=== PATIENT | male | born 1955 | race Caucasian/White ===

== ENCOUNTER → 2017-09-10 14:40 | Outpatient (CLI) | payer OTHER, SELFPAY ==
[2017-09-10 15:52] LABS: Absolute Lymphocyte Count 2.38 X10^3/ul (0.83-4.51); Absolute Neutrophil Count 3.3 X10^3/uL (2.0-7.7); Basophil# 0.04 X10^3/uL; Basophil% 0.6 % (0-1); Eosinophil# 0.63 X10^3/uL; Hematocrit 46.2 % (40-54); Hemoglobin 15.6 g/dl (13.0-16.5); Lymphocyte # 2.38 X10^3/ul (4.0); Lymphocyte % 33.9 % (19-41); Mean Corp Hgb Conc 33.8 g/gl (32-36); Mean Corpuscular Hgb 30.6 pg (27.0-32.0); Mean Corpuscular Volume 90.8 fL (80-94); Monocyte# 0.64 X10^3/uL; Monocyte% 9.1 % (0-10); Neutrophil # 3.32 X10^3/uL (2.7-7.7); Neutrophil % 47.3 % (47-70); Platelet Count 323 K/mm3 (150-450); RBC Distribution Width SD 43.3 fl (35.1-43.9); Red Blood Count 5.09 M/mm3 (4.6-6.2)
[2017-09-10 15:55] LABS: POSITIVE COUNT NO; POSITIVE DIFFERENTIAL NO; POSITIVE MORPHOLOGY NO
[2017-09-10 15:57] LABS: Anion Gap 9 (5-15); BUN 14 mg/dL (7-18); BUN/Creat Ratio 14.4 RATIO (10-20); Chloride 105 mmol/L (98-107); Creatinine, Serum 0.97 mg/dL (0.70-1.30); EST Glomerular Filtration Rate 83 mL/min (>60); Est Glom Filt Rate - Afr Amer 100 mL/min (>60); Glucose 87 mg/dL (74-106); Potassium 4.3 mmol/L (3.5-5.1); Sodium Level 139 mmol/L (136-145)
== END ==
PROVIDERS: Family Provider Family Medicine; PCP Family Medicine; Visit Provider Family Medicine
DX: R55 Syncope and collapse (principal)
CPT/HCPCS: 36415; 80048; 85025

== ENCOUNTER → 2018-04-21 08:14 | Outpatient (CLI) | payer OTHER, SELFPAY ==
[2018-04-21 10:28] LABS: Absolute Lymphocyte Count 1.93 X10^3/ul (0.83-4.51); Absolute Neutrophil Count 2.1 X10^3/uL (2.0-7.7); Basophil# 0.05 X10^3/uL; Eosinophil# 0.36 X10^3/uL; Eosinophils% 7.3 % (0-5); Hematocrit 47.5 % (40-54); Hemoglobin 15.8 g/dl (13.0-16.5); Lymphocyte # 1.93 X10^3/ul (4.0); Lymphocyte % 38.9 % (19-41); Mean Corp Hgb Conc 33.3 g/gl (32-36); Mean Corpuscular Hgb 30.8 pg (27.0-32.0); Mean Corpuscular Volume 92.6 fL (80-94); Mean Platelet Vol. 9.7 fl (6.2-12.0); Monocyte# 0.52 X10^3/uL; Monocyte% 10.5 % (0-10); Neutrophil # 2.08 X10^3/uL (2.7-7.7); Neutrophil % 41.9 % (47-70); POSITIVE COUNT NO; POSITIVE DIFFERENTIAL NO; POSITIVE MORPHOLOGY NO; Platelet Count 337 K/mm3 (150-450); RBC Distribution Width CV 12.9 % (11.6-14.6); RBC Distribution Width SD 43.8 fl (35.1-43.9); Red Blood Count 5.13 M/mm3 (4.6-6.2)
[2018-04-21 11:07] LABS: Anion Gap 10 (5-15); BUN 9 mg/dL (7-18); BUN/Creat Ratio 8.4 RATIO (10-20); Calcium,Total 9.2 mg/dL (8.5-10.1); Chloride 105 mmol/L (98-107); Cholesterol 231 mg/dL (200); Creatinine, Serum 1.07 mg/dL (0.70-1.30); EST Glomerular Filtration Rate 74 mL/min (>60); Est Glom Filt Rate - Afr Amer 90 mL/min (>60); Glucose 89 mg/dL (74-106); High Density Lipoprotein 49 mg/dL; PSA,Total - Annual Screen 1.37 ng/mL (0.00-4.00); Potassium 4.5 mmol/L (3.5-5.1); Sodium Level 138 mmol/L (136-145); Triglycerides 135 mg/dL; Very Low Density Lipoprotein 27 mg/dL (5-40)
== END ==
PROVIDERS: Family Provider Family Medicine; PCP Family Medicine; Visit Provider Family Medicine
DX: E78.00 Pure hypercholesterolemia, unspecified (principal); I10 Essential (primary) hypertension; Z12.5 Encounter for screening for malignant neoplasm of prostate
CPT/HCPCS: 36415; 80048; 80061; 84153; 85025; G0103

== ENCOUNTER → 2019-03-15 08:31 | Outpatient (CLI) | payer OTHER, SELFPAY ==
[2015-08-22 14:48] VITALS: BMI 26.3
[2019-03-15 10:22] LABS: Amphetamine Urine VISTA NEGATIVE (<1000 ng/mL); Barbiturate Urine VISTA NEGATIVE (< 200 ng/mL); Benzodiazepine Urine VISTA POSITIVE (< 200 ng/mL); Cocaine Urine VISTA NEGATIVE (< 300 ng/mL); Ecstacy Urine VISTA NEGATIVE (< 500 ng/mL); Methadone Urine VISTA NEGATIVE (< 300 ng/mL); PCP Urine VISTA NEGATIVE (< 25 ng/mL); THC Urine VISTA POSITIVE (< 50 ng/mL); Vista UDS pH Range 6
[2019-03-15 10:28] LABS: Microalbumin,Random Urine 5.2 mg/L (NO RANGE EST.); Microalbumin:Creatinine Ratio 4.7 mg/g CRE (<30 mg/g CRE)
[2019-03-15 10:44] LABS: Anion Gap 8 (5-15); BUN 16 mg/dL (7-18); BUN/Creat Ratio 12.7 RATIO (10-20); Calcium,Total 9.2 mg/dL (8.5-10.1); Chloride 101 mmol/L (98-107); Cholesterol 244 mg/dL (200); Creatinine, Serum 1.26 mg/dL (0.70-1.30); EST Glomerular Filtration Rate 61 mL/min (>60); Est Glom Filt Rate - Afr Amer 74 mL/min (>60); Glucose 104 mg/dL (74-106); High Density Lipoprotein 49 mg/dL; PSA,Total - Annual Screen 1.43 ng/mL (0.00-4.00); Potassium 4.2 mmol/L (3.5-5.1); Sodium Level 135 mmol/L (136-145); Triglycerides 165 mg/dL; Very Low Density Lipoprotein 33 mg/dL (5-40)
== END ==
PROVIDERS: Family Provider Family Medicine; PCP Family Medicine; Referring Provider Family Medicine; Visit Provider Family Medicine
DX: I10 Essential (primary) hypertension (principal); F41.9 Anxiety disorder, unspecified; E78.00 Pure hypercholesterolemia, unspecified; Z12.5 Encounter for screening for malignant neoplasm of prostate
CPT/HCPCS: 36415; 80048; 80061; 80307; 82043; 82570; 84153; G0103

== ENCOUNTER → 2019-03-27 09:09 | Outpatient (CLI) | payer OTHER, SELFPAY ==
[2015-08-22 14:48] VITALS: BMI 26.3
--- NOTE | 2019-03-27 09:13 | STEWCON_ITS ---
Reason For Study: Chest Pain Stress Results Protocol: Curt Protocol WITH DEFINITY Maximum Predicted HR: 156 bpm Target HR: 133 bpm % Maximum Predicted HR: 96 % Heart Stage Duration Rate BP Comment (mm:ss) (bpm) No Chest Pain; 3 ML Diluted Definity Given; Technically Baseline 74 128/90Difficult Study Curt Protocol Stage I 3:00 111 130/84No Chest Pain Curt Protocol Stage II 3:00 139 194/98No Chest Pain; Mild Dyspnea Curt Protocol Stage III 2:00 150 210/98No Chest Pain; Mild Dyspnea Recovery 91 138/94No Chest Pain Stress Duration: 8:00 mm:ss Maximum Stress HR: 150 bpm METS: 10 Baseline Echocardiogram Findings Stress Echo Wall motion Data Resting WM Intermediate WM Stress WM Interpretation Summary Stress echocardiogram. 63-year-old man with a history of chest pain. Stress protocol: Resting EKG demonstrates normal sinus rhythm with a rate of 75 bpm normal intervals are noted resting blood pressure is 128/90 mmHg. The patient exercised according to regular Curt protocol for a total duration of 8 minutes. The maximum heart rate attained was 150 bpm which was 96% of maximum predicted heart rate the maximum workload was 10.1 metabolic equivalents. At rest there were no ST or T wave changes noted suggest ischemia peak exercise upsloping ST changes were noted with no meet the criteria for ischemia. No clinical angina was noted the test was terminated due to attainment of target heart rate. The resting blood pressures 128/90 with a peak blood pressure of 210/98 mmHg rate pressure product was 31,500. Stress echocardiographic images. The resting and stress cardiographic images were obtained with Definity enhancement. The baseline ejection fraction was noted to be 55 to 60% with a peak ejection fraction of 75%. No wall motion abnormalities were noted no arrhythmias were noted. Conclusion: Exercise stress echocardiogram with no evidence of ischemia at a high workload. Preserved ejection fraction. Good functional capacity. Ordering Physician: Hortensia Carr Referring Physician: Pancho Goodson M.D. Performed By: Kisha Newton, IVAN, RVT
== END ==
PROVIDERS: Family Provider Family Medicine; PCP Family Medicine; Referring Provider Family Medicine; Visit Provider Family Medicine
DX: R07.9 Chest pain, unspecified (principal)
CPT/HCPCS: 93017; 93350; Q9957; A4216; C8928

== ENCOUNTER → 2020-01-02 | Outpatient (CLI) | payer MEDICARE, OTHER, SELFPAY ==
[2015-08-22 14:48] VITALS: BMI 26.3
[2020-01-02 10:03] LABS: Cholesterol 190 mg/dL (200); High Density Lipoprotein 44 mg/dL; Triglycerides 92 mg/dL; Very Low Density Lipoprotein 18 mg/dL (5-40)
== END | disposition home or self-care (01) ==
LOC: MFPLAB 08:27
PROVIDERS: PCP Family Medicine; Referring Provider Family Medicine; Visit Provider Family Medicine
DX: I10 Essential (primary) hypertension (principal)
CPT/HCPCS: 36415; 80061

== ENCOUNTER → 2020-01-16 | Outpatient (CLI) | payer MEDICARE, OTHER, SELFPAY ==
[2020-01-16 10:36] LABS: PSA,Total- Diagnostic 1.62 ng/mL (0.0-4.0)
== END | disposition home or self-care (01) ==
LOC: MFPLAB 08:32
PROVIDERS: PCP Family Medicine; Referring Provider Family Medicine; Visit Provider Family Medicine
DX: N40.0 Benign prostatic hyperplasia without lower urinary tract symptoms (principal)
CPT/HCPCS: 36415; 84153

== ENCOUNTER 2020-06-20 08:24 | Outpatient (RCR) | payer MEDICARE, OTHER, SELFPAY ==
[2015-08-22 14:48] VITALS: BMI 26.3
[2020-06-20] MEDS: COVID-19 VACC, MRNA(PFIZER)/PF 30 MCG/0.3 ML SYRINGE IM (08:06)
[2020-07-11] MEDS: COVID-19 VACC, MRNA(PFIZER)/PF 30 MCG/0.3 ML SYRINGE IM (07:52)
== END 2020-09-17 23:59 ==
LOC: IMMUN 08:24
PROVIDERS: PCP Family Medicine; Visit Provider Family Medicine
DX: Z23 Encounter for immunization (principal)
CPT/HCPCS: 0001A; 0002A; 91300

== ENCOUNTER → 2020-11-12 08:27 | Outpatient (CLI) | payer MEDICARE, OTHER, SELFPAY ==
[2015-08-22 14:48] VITALS: BMI 26.3
[2020-11-12 10:07] LABS: Absolute Lymphocyte Count 1.68 X10^3/uL (0.83-4.51); Absolute Neutrophil Count 1.7 X10^3/uL (2.0-7.7); Basophil# 0.05 X10^3/uL; Basophil% 1.2 % (0-1); Eosinophil# 0.24 X10^3/uL; Hematocrit 46.1 % (40-54); Hemoglobin 15.4 g/dL (13.0-16.5); Lymphocyte # 1.68 X10^3/ul (0.83-4.51); Lymphocyte % 41.8 % (19-41); Mean Corp Hgb Conc 33.4 g/dL (32-36); Mean Corpuscular Hgb 30.3 pg (27.0-32.0); Mean Corpuscular Volume 90.7 fL (80-94); Mean Platelet Vol. 10.1 fl (6.2-12.0); Monocyte# 0.38 X10^3/uL; Monocyte% 9.5 % (0-10); NRBC Flagged by Analyzer 0 % (0-5); Neutrophil # 1.66 X10^3/uL (2.7-7.7); Neutrophil % 41.3 % (47-70); Platelet Count 305 K/mm3 (150-450); RBC Distribution Width CV 12.8 % (11.6-14.6); RBC Distribution Width SD 42.7 fl (35.1-43.9); Red Blood Count 5.08 M/mm3 (4.6-6.2)
[2020-11-12 10:44] LABS: ALB/GLOB Ratio 1.1 RATIO (0.9-2.4); AST(SGOT) 21 U/L (15-37); Alanine Aminotransfer ALT/SGPT 25 U/L (16-61); Alkaline Phosphatase 57 U/L (45-117); Anion Gap 7 (5-15); BUN 18 mg/dL (7-18); BUN/Creat Ratio 16.2 RATIO (10-20); Calcium,Total 8.6 mg/dL (8.5-10.1); Chloride 102 mmol/L (98-107); Cholesterol 229 mg/dL (200); Creatinine, Serum 1.11 mg/dL (0.70-1.30); EST Glomerular Filtration Rate 71 mL/min (>60); Est Glom Filt Rate - Afr Amer 85 mL/min (>60); Globulin 3.5 g/dL (2.2-4.2); Glucose 99 mg/dL (74-106); High Density Lipoprotein 47 mg/dL; Potassium 4.1 mmol/L (3.5-5.1); Protein, Total 7.5 g/dL (6.4-8.2); Sodium Level 134 mmol/L (136-145); Triglycerides 125 mg/dL; Very Low Density Lipoprotein 25 mg/dL (5-40)
== END ==
PROVIDERS: PCP Family Medicine; Referring Provider Family Medicine; Visit Provider Registered Nurse
DX: I10 Essential (primary) hypertension (principal)
CPT/HCPCS: 36415; 80053; 80061; 85025

== ENCOUNTER → 2021-02-10 11:43 | Outpatient (CLI) | payer MEDICARE, OTHER, SELFPAY | PROVIDERS: PCP Family Medicine; Visit Provider Family Medicine | DX: R69 Illness, unspecified (principal) ==

== ENCOUNTER 2021-04-30 07:48 | Outpatient (CLI) | payer MEDICARE, OTHER, SELFPAY ==
[2021-05-02 19:55] LABS: Fats, Neutral Normal (.); Fats, Total Normal (.)
== END 2021-04-30 23:59 | disposition short-term general hospital (02) ==
LOC: MTLAB 07:50
PROVIDERS: PCP Family Medicine; Referring Provider Internal Medicine Gastroenterology; Visit Provider Internal Medicine Gastroenterology
DX: R19.7 Diarrhea, unspecified (principal)
CPT/HCPCS: 82705

== ENCOUNTER 2022-01-11 09:53 | Inpatient (IN) | payer MEDICARE, OTHER, SELFPAY ==
[2022-01-11] VITALS (28 sets, daily range): BP systolic 104–171; BP diastolic 74–112; PULSE 65–91; RESP 8–20; TEMP 36.5–37.1; O2SAT 95–99; BMI 28.5; BMI 27.1
--- NOTE | 2022-01-11 10:06 | RAD_ITS ---
STUDY: X-RAY CHEST REASON FOR EXAM: Male, 66 years old. Chest pain TECHNIQUE: Single AP portable view of the chest. COMPARISON: None. FINDINGS: The lungs are clear and expanded. There is no demonstrated pleural abnormality. Normal size heart. Normal mediastinum and stacy. Normal visualized pulmonary arteries. Normal visualized aortic arch and descending thoracic aorta. Normal visualized thoracic spine. There is degenerative osteoarthritis of the bilateral shoulders. There is no demonstrated abnormality of the visualized soft tissue structures of the upper abdomen. RAD/Chest 1 View (Portable) IMPRESSION: Degenerative changes, as described above. No demonstrated acute cardiopulmonary process. Electronically Signed: Tom Mullins MD at 10:50 EDT ,
--- NOTE | 2022-01-11 10:06 | NURSING ---
1005 STEMI ALERT CALLED
--- NOTE | 2022-01-11 10:08 | ED.VIS.CHEST ---
HPI History of Present Illness Chief Complaint: Chest Pain Informant: patient Onset/Context/Timing Onset: Hours (1) Activity at onset: sudden, onset and rest (Reading his morning paper) Timing: Continuous Quality: Positive for Pressure and Sharp Location: Substernal (Without radiation) Current Severity: Severe Maximum Severity: Severe Worsened By: Nothing; Not Worsened By Breathing Relieved By: Nothing Associated Symptoms: Negative for Nausea, Vomiting, Diaphoresis, Dyspnea, Cough, Lightheadedness or Palpitations Narrative Narrative: EKGPatient started having chest discomfort 1 hour prior to arrival, never had this before no history of heart disease, I was pulled out of another room because was done prior to my awareness of the patient's arrival and it showed a STEMI. Patient states he has never had any heart problems. He takes no antiplatelet medications. Occasionally smokes marijuana, but he does not smoke cigarettes and never has. Is treated for hypertension, anxiety, and no other systemic disease. [facility] Medical History (Updated 01/11/22 @ 12:58 by Griselda Barahona) Anxiety Hypertension Prostate enlargement Home Medications alprazolam 0.5 mg tablet 0.5 mg PO QHS PRN PRN Anxiety 08/22/15 [History Last Taken 12/16/21 12:00] clonazepam 1 mg tablet 1 mg PO QHS Check with primary doctor 01/11/22 [History Last Taken 01/10/22 22:00] doxepin 50 mg capsule 50 mg PO QHS Check with primary doctor 01/11/22 [History Last Taken 01/10/22 22:00] linaclotide 72 mcg capsule (Linzess) 72 mcg PO DAILY Check with primary doctor 01/11/22 [History Last Taken 01/11/22 07:00] lisinopril 40 mg tablet 40 mg PO DAILY Check with primary doctor 01/11/22 [History Last Taken 01/11/22 07:00] omeprazole 40 mg capsule,delayed release 40 mg PO DAILY Check with primary doctor 01/11/22 [History Last Taken 01/11/22 07:00] Allergy/AdvReac Type Severity Reaction Status Date / Time acetaminophen [From [place]] AdvReac Other Verified 01/11/22 09:55 buspirone HCl [From BuSpar] AdvReac Other Verified 01/11/22 09:55 hydrocodone bitartrate AdvReac Other Verified 01/11/22 09:55 [From [place]] Family History (Updated 01/11/22 @ 15:[address] James Scott MD) Other Cancer Heart disease Surgical History (Updated 01/11/22 @ 15:[address] James Scott MD) Previous back surgery Social History (Updated 01/11/22 @ 10:[address] Tom Ge MD) Smoking Status: Never smoker substance use type: marijuana and other details: Denies cocaine ROS ROS ED Constitutional Constitutional ED: Denies chills or fever(s) Eyes Eyes: Denies change in vision or diplopia ENT ENT ED: Denies rhinorrhea or sore throat Cardiovascular Cardiovascular: Reports chest pain; Denies palpitations Respiratory/Chest Respiratory/Chest: Denies cough or dyspnea Gastrointestinal Gastrointestinal: Denies abdominal pain, diarrhea, nausea or vomiting Genitourinary Genitourinary ED: Denies dysuria or hematuria Musculoskeletal Musculoskeletal: Denies back pain or neck pain Integumentary Denies abscess or rash Neurologic Neurologic: Denies headache(s), paresthesias or weakness Psychiatric Psychiatric: Denies anxiety or suicidal thoughts EXAM Physical Exam Const Vital Signs: 01/11/22 09:56 01/11/22 10:06 01/11/22 10:07 Temperature 97.8 F Temperature Source Temporal Pulse Rate 86 90 Respiratory Rate 18 20 H 20 H Respiratory Effort Blood Pressure 165/112 H 159/105 H 159/105 H Blood Pressure Mean 129 123 Blood Pressure Source Blood Pressure Position Blood Pressure Location Pulse Ox 95 99 Oxygen Delivery Method Room Air Room Air 01/11/22 10:10 01/11/22 10:15 01/11/22 10:21 Temperature Temperature Source Pulse Rate 85 Respiratory Rate 18 Respiratory Effort Normal Non-Labored Blood Pressure 171/95 H Blood Pressure Mean 120 Blood Pressure Source Blood Pressure Position Blood Pressure Location Pulse Ox 99 Oxygen Delivery Method Room Air Room Air 01/11/22 10:56 01/11/22 12:15 01/11/22 12:15 Temperature 97.8 F 98.2 F Temperature Source Temporal Temporal Pulse Rate 85 75 82 Respiratory Rate 18 11 L Respiratory Effort Blood Pressure 171/95 H 134/89 H Blood Pressure Mean 120 104 Blood Pressure Source Monitor Blood Pressure Position Semi-Fowlers Blood Pressure Location Left Arm Pulse Ox 99 99 Oxygen Delivery Method Room Air Room Air 01/11/22 12:30 01/11/22 12:45 01/11/22 13:00 Temperature Temperature Source Pulse Rate 83 85 91 Respiratory Rate 17 14 18 Respiratory Effort Blood Pressure 132/92 H 132/90 H 138/92 H Blood Pressure Mean 105 104 107 Blood Pressure Source Monitor Monitor Monitor Blood Pressure Position Semi-Fowlers Semi-Fowlers Semi-Fowlers Blood Pressure Location Left Arm Left Arm Left Arm Pulse Ox 99 97 97 Oxygen Delivery Method Room Air Room Air Room Air Positive well nourished and well developed Constitutional Narrative: Well-appearing no distress skin dry General Appearance ED: well developed and NAD HEENT Reports moist mucous membranes normocephalic and atraumatic Eyes PERRL and EOMs intact bilaterally Neck full ROM and supple Resp normal respiratory effort and clear to auscultation bilaterally Cardio regular rate, regular rhythm and no murmurs GI non-tender and non-distended Auscultation: normoactive bowel sounds Palpation: soft Back/Spine no CVA tenderness General Back: other FROM Extremity normal to inspection General Extremety ED: Negative for edema, pulses abnormal or tenderness General Extremity: Negative for edema or pulses abnormal Neuro oriented x3, CN's II-XII intact bilaterally and no sensory deficits noted Sensorium / Orientation: awake and alert Motor Exam: strength 5/5 throughout Skin no rashes or lesions noted and no wounds Heart Score History: Highly Suspicious ECG: Significant ST-Depression Age: >/= 65 years Risk Factors: 1 or 2 Risk Factors Troponin: </= Normal Limit Score: 7 MDM MDM MDM Narrative Medical decision making narrative: Patient's EKG is showing an inferior STEMI. His blood pressure is stable, fluids, aspirin, heparin, Brilinta are ordered as well as a dose of morphine for his pain. Discussed with Dr. Cosby who was in agreement with that plan and on his way in to take the patient to the [facility]. Lab Data Attestation: I reviewed the patient's lab results. Labs: Laboratory Results - last 24 hr 01/11/22 01/11/22 01/11/22 10:05 10:05 10:05 WBC 6.3 RBC 5.04 Hgb 15.7 Hct 45.2 MCV 89.7 MCH 31.2 MCHC 34.7 RDW Std Deviation 42.2 RDW Coeff of Kelsy 12.8 Plt Count 339 MPV 9.4 Immature Gran % (Auto) 0.200 Neut % (Auto) 49.9 Lymph % (Auto) 34.4 [place] % (Auto) 10.0 Eos % (Auto) 4.1 Baso % (Auto) 1.4 H Absolute Neuts (auto) 3.1 Absolute Lymphs (auto) 2.16 Nucleated RBC % 0 PT 12.8 INR 1.0 APTT 35.8 Sodium 133 L Potassium 4.5 Chloride 99 Carbon Dioxide 24.0 Anion Gap 10 BUN 19 H Creatinine 1.08 Estim Creat Clear Calc 68.53 Est GFR (MDRD) Af Amer 88 Est GFR (MDRD) Non-Af 73 BUN/Creatinine Ratio 17.6 Glucose 106 Calcium 9.2 Troponin I High Sens 76 Radiography Chest X-Ray - ED: 1 View, Read by ED Physician and No Acute Disease Diagnostic Testing: Clinical Impression(s) from Imaging Studies Chest X-Ray 01/11/22 10:06 IMPRESSION: Degenerative changes, as described above. No demonstrated acute cardiopulmonary process. Electronically Signed: Tom Mullins MD at 10:50 EDT , Rhythm Strip Rhythm Strip: Sinus Rhythm Rate: 90 Ectopy: None EKG Initial EKG: Attestation: I personally reviewed and interpreted this EKG as follows: Interpretation: Sinus Rhythm, S-T Elevation (Inferior 2 millimeter) and S-T Depression (Lateral 2 mm) Prior EKG tracings: available for review (03/02/2006) Prior: Changed Critical Care Time Critical Care Time: Yes Critical care time (excluding procedures): 30-74 minutes (32 min), Including time spent:, Discussing w/Patient &/or Family/[employer], Discussing w/Consultants, Arranging Admission or Transfer and Performing Direct Patient Care at Bedside Discharge Plan Dx/Rx/DC Orders Clinical Impression: ST elevation myocardial infarction (STEMI) of inferior wall Disposition Disposition: Acute Care [facility] Discharge Date/Time: 01/11/22 10:57
[2022-01-11] MEDS: Morphine 4 MG/ML Syringe IV (10:11)
[2022-01-11] MEDS: Heparin Injection (Vial) 5,000 UNIT/ML VIAL 4000 UNIT IV (10:11)
[2022-01-11] MEDS: TICAGRELOR 90 MG TABLET 180 MG PO (10:11)
[2022-01-11] MEDS: Aspirin 81 MG TAB.CHEW 324 MG PO (10:12)
[2022-01-11 10:13] LABS: Absolute Lymphocyte Count 2.16 X10^3/uL (0.83-4.51); Absolute Neutrophil Count 3.1 X10^3/uL (2.0-7.7); Basophil# 0.09 X10^3/uL; Basophil% 1.4 % (0-1); Eosinophil# 0.26 X10^3/uL; Eosinophils% 4.1 % (0-5); Hematocrit 45.2 % (40-54); Hemoglobin 15.7 g/dL (13.0-16.5); Lymphocyte # 2.16 X10^3/ul (0.83-4.51); Lymphocyte % 34.4 % (19-41); Mean Corp Hgb Conc 34.7 g/dL (32-36); Mean Corpuscular Hgb 31.2 pg (27.0-32.0); Mean Corpuscular Volume 89.7 fL (80-94); Mean Platelet Vol. 9.4 fl (6.2-12.0); Monocyte# 0.63 X10^3/uL; NRBC Flagged by Analyzer 0 % (0-5); Neutrophil # 3.13 X10^3/uL (2.7-7.7); Neutrophil % 49.9 % (47-70); Platelet Count 339 K/mm3 (150-450); RBC Distribution Width CV 12.8 % (11.6-14.6); RBC Distribution Width SD 42.2 fl (35.1-43.9); Red Blood Count 5.04 M/mm3 (4.6-6.2); White Blood Count 6.3 K/mm3 (4.4-11.0)
[2022-01-11 10:21] LABS: Partial Thromboplast Time 35.8 Seconds (24.1-36.2); Prothrombin Time (Protime)PT. 12.8 SECONDS (11.7-14.9)
[2022-01-11] MEDS: 0.9% Normal Saline 1,000 ML 999 ML IV (10:21)
--- NOTE | 2022-01-11 10:31 | NURSING ---
DR PISANO FOR DR GILLIS
[2022-01-11 10:32] LABS: Anion Gap 10 (5-15); BUN 19 mg/dL (7-18); BUN/Creat Ratio 17.6 RATIO (10-20); Calcium,Total 9.2 mg/dL (8.5-10.1); Chloride 99 mmol/L (98-107); Creatinine, Serum 1.08 mg/dL (0.70-1.30); EST Glomerular Filtration Rate 73 mL/min (>60); Est Glom Filt Rate - Afr Amer 88 mL/min (>60); Estimated Creatinine Clearance 68.53 ml/min; Glucose 106 mg/dL (74-106); Potassium 4.5 mmol/L (3.5-5.1); Sodium Level 133 mmol/L (136-145); Troponin-I HS 76 pg/mL (3.0-78.0)
--- NOTE | 2022-01-11 10:34 | NURSING ---
ICU [facility] STEMI
--- NOTE | 2022-01-11 10:35 | NURSING ---
ICU 1
--- NOTE | 2022-01-11 11:49 | CL.I_ITS ---
Patient Name: NAA LENTZ Study Date: 01/11/2022 Performing: Lucrecia Cosby MD Ht: 70 inches 177.8 cm : 1955 Wt: 198.79 lbs 90.17 kg Age: 66 Gender: male BSA: 2.08 PROCEDURE(S) PERFORMED DC01-(19337)LHC/COR/LV IC16-([id number])AMI, ALEX OR PTCA, ARTERY/GRAFT, SINGLE VESSEL CLINICAL PROFILE AND CO-MORBIDITIES Indications: ACS <= 24 hrs Heart Failure: None CAD Presentations: STEMI. Symptom onset Date/Time: Time Estimated CONCLUSIONS 99% Mid RCA 60% Mid LAD 60-65% Mid LCX 50-60% Mid Ramus LVEF 50% Successful PTCA/ALEX Mid RCA usinf Synergy 3.0x32 mm, post-dilated using 3.5 mm balloon RECOMMENDATION ASA Indefinitley Plavix for at least 12 months DESCRIPTION OF PROCEDURE The patient arrived to the procedure lab. The risks and benefits of the procedure as well as a full description of our services here and lack of surgical backup were fully explained to the patient and/or their significant other prior to the catheterization. The Timeout was completed, verifying the correct patient and procedure. The patient's procedural site was prepped and draped in the usual fashion. Local anesthetic was given subcutaneously to right radial region with Lidocaine 2%. Using a modified Seldinger technique, arterial access was obtained via the right radial artery, a 6Fr sheath was inserted.. Left Coronary Artery selective angiography was performed in multiple views using a 5 Fr. 4.0 [place] catheter. Right Coronary Artery selective angiography was then performed in multiple views using a 5 Fr. 4.0 [place] catheter. Left Ventriculography was performed in SHAH projection using a 5 Fr. Pig[place] catheter. LV to AO pullback pressures were then recorded JR4 Guide catheter was inserted and engaged into the RCA. Runthrough Guide wire was advanced to the RCA. Emerge 2.5 x 20 Balloon catheter was inserted. Balloon catheter was advanced across lesion in the right coronary, mid. PTCA balloon inflated at 6 atms for 10 secs. Angiogram performed post balloon dilatation. Synergy 3.0 x 32 Drug Eluting stent was inserted. Drug Eluting stent was advanced across the lesion in the right coronary, mid. NC Emerge 3.50 x 30 Balloon catheter was inserted. Balloon catheter was advanced across lesion in the right coronary, mid. Angiogram performed post stent deployment. The arterial sheath was pulled and a TR Band was applied for hemostasis CORONARY ANGIOGRAPHY DOMINANCE: Right Dominant LEFT HEART ASSESSMENT Left Ventricular Ejection Fraction: by LV Gram 55 % LVEDP: 11 mmHg LEFT MAIN: No significant disease noted LEFT ANTERIOR DESCENDING ARTERY: MID LAD: 60 % Stenosis CIRCUMFLEX ARTERY: MID CIRC: 65 % Stenosis RAMUS: 50-60% Mid RIGHT CORONARY ARTERY: PROX RCA: 50 % Stenosis MID RCA: 99 % Stenosis INTERVENTION INFORMATION LESION SITE: RCA (Mid) Lesion Complexity: High/C, thrombus present: Yes Pre Stenosis: 99 % Pre intervention KEVIN flow: 3 PROCEDURE: Drug Eluting Stent with pre and post dilatation Post Stenosis: 0 % Post intervention KEVIN flow: 3 Lesion Devices: Cardinal 6 Fr JR4 100cm Guide Catheter Terumo .014 Runthrough Extra Floppy 180cm straight Terumo .014 Runthrough Extra Floppy 180cm straight Rahul Sci EMERGE MR 2.50x20 BALLOON Rahul Sci Synergy MR ALEX 3.00x32 Rahul Sci NC EMERGE MR 3.50x30 BALLOON COMPLICATIONS PROCEDURE MEDICATIONS Versed 2 mg IV Fentanyl 50 mcg IV Fentanyl 25 mcg IV Oxygen: 2 L/min via nasal cannula Adenosine 200 mcg IC 01/11/2022 11:24:01 Adenosine 200 mcg IC 01/11/2022 11:24:01 Adenosine 200 mcg IC @ 01/11/2022 11:25:23 Heparin 7000 unit(s) IV 01/11/2022 11:02:10 Nitro 100 mcg IC 01/11/2022 11:09:39 Verapamil 2.5mg, Ntg 200mcgs, given IA 01/11/2022 10:55:26 IV Bolus: .9 NaCl 750 ml total 01/11/2022 11:10:54 IV Fluids: .9 NaCl decreased to 150 ml/hr 01/11/2022 11:25:43 SUMMARY OF HEMODYNAMIC DATA Time AIR REST ECG 10:49:00 AO 118/74 (95) SA 10:57:16 LV 84/3, 10 11:32:07 LV 89/3, 10 11:32:13 LV 83/9, 15 11:33:55 LVp 91/8, 16 11:34:00 AOp 85/58 (72) 11:34:05 Signed By Lucrecia Cosby MD On 01/11/2022 11:48:35 Lucrecia Cosby MD
--- NOTE | 2022-01-11 11:52 | CON.PCM.CA_ITS ---
Assessment & Plan Assessment/Plan (1) ST elevation myocardial infarction (STEMI) of inferior wall: PLAN: Patient was taken emergently to the cardiac catheterization lab. Coronary angiography showed subtotal occlusion in the mid right coronary artery. Successful percutaneous intervention was performed with balloon angioplasty and a 3.0 x 32 mm Synergy drug-eluting stent was deployed. This was postdilated using a 3.5 mm balloon. Excellent results were noted. Overall left ventricular systolic ejection fraction was noted to be 50 to 55%. Continue aspirin lifelong. Clopidogrel for at least 1 year. Introduce beta- blockers as tolerated. Check lipid profile. Start on statins. (2) Nicotine dependence: PLAN: Counseled to quit. (3) Hypertension: PLAN: Presently blood pressure borderline. Monitor. HPI Consult Data Date of Consult: 01/11/22 HPI Narrative Reason for Consultation: STEMI n HPI Narrative: NAA LENTZ, is a 66 M who presented to the emergency room with complaints of anterior chest discomfort. In the emergency room, an EKG was done. It showed changes consistent with acute inferior ST elevation myocardial infarction. Subsequently a STEMI alert was called. Patient denies any previous history of coronary artery disease. [facility] Medical History (Updated 01/11/22 @ 11:[address] Lucrecia Cosby MD) Anxiety Hypertension Home Medications alprazolam 0.5 mg tablet 0.5 mg PO QHS PRN PRN Anxiety 08/22/15 [History Last Taken Unknown] clonazepam 1 mg tablet 1 mg PO QHS 01/11/22 [History Last Taken Unknown] doxepin 50 mg capsule 50 mg PO QHS 01/11/22 [History Last Taken Unknown] linaclotide 72 mcg capsule (Linzess) 72 mcg PO DAILY 01/11/22 [History Last Taken Unknown] lisinopril 40 mg tablet 40 mg PO DAILY 01/11/22 [History Last Taken Unknown] Allergy/AdvReac Type Severity Reaction Status Date / Time acetaminophen [From [place]] AdvReac Other Verified 01/11/22 09:55 buspirone HCl [From BuSpar] AdvReac Other Verified 01/11/22 09:55 hydrocodone bitartrate AdvReac Other Verified 01/11/22 09:55 [From [place]] Social History (Updated 01/11/22 @ 10:[address] Tom Ge MD) Smoking Status: Never smoker substance use type: marijuana and other details: Denies cocaine Physical Exam Narrative Comfortable. No apparent distress. Heart sounds 1 and 2 are normal. Chest clear to auscultation bilaterally. Abdomen soft bowel sounds positive. Alert oriented x3. No ankle edema noted. Risk Stratification Risk Stratification Applicable: No Objective Data Vital Signs: Vital Signs Temp Pulse Resp BP Pulse Ox O2 Del Method 97.8 F 85 18 171/95 H 99 Room Air 01/11/22 10:56 01/11/22 10:56 01/11/22 10:56 01/11/22 10:56 01/11/22 10:56 01/11/22 10:56 Oxygen Delivery Method Room Air Weight: 198 lb 12.8 oz Body Mass Index (BMI) 28.5 Lab / Micro Data Result Diagrams: 01/11/22 10:05 01/11/22 10:05 Labs: Laboratory Results - last 24 hr 01/11/22 10:05: WBC 6.3, RBC 5.04, Hgb 15.7, Hct 45.2, MCV 89.7, MCH 31.2, MCHC 34.7, RDW Std Deviation 42.2, RDW Coeff of Kelsy 12.8, Plt Count 339, MPV 9.4, Immature Gran % (Auto) 0.200, Neut % (Auto) 49.9, Lymph % (Auto) 34.4, [place] % (Auto) 10.0, Eos % (Auto) 4.1, Baso % (Auto) 1.4 H, Absolute Neuts (auto) 3.1, Absolute Lymphs (auto) 2.16, Nucleated RBC % 0 01/11/22 10:05: Sodium 133 L, Potassium 4.5, Chloride 99, Carbon Dioxide 24.0, Anion Gap 10, BUN 19 H, Creatinine 1.08, Estim Creat Clear Calc 68.53, Est GFR (MDRD) Af Amer 88, Est GFR (MDRD) Non-Af 73, BUN/Creatinine Ratio 17.6, Glucose 106, Calcium 9.2, Troponin I High Sens 76 Rhythm Strip Rhythm Strip: Sinus Rhythm Rate: 90 Ectopy: None Cardiology Labs/Tests 01/11/22 10:05: WBC 6.3, RBC 5.04, Hgb 15.7, Hct 45.2, MCV 89.7, MCH 31.2, MCHC 34.7, Plt Count 339, MPV 9.4, Immature Gran % (Auto) 0.200, Neut % (Auto) 49.9, Lymph % (Auto) 34.4, [place] % (Auto) 10.0, Eos % (Auto) 4.1, Baso % (Auto) 1.4 H, Absolute Neuts (auto) 3.1, Nucleated RBC % 0 01/11/22 10:05: Sodium 133 L, Potassium 4.5, Chloride 99, Carbon Dioxide 24.0, Anion Gap 10, BUN 19 H, Creatinine 1.08, Est GFR (MDRD) Af Amer 88, Est GFR (MDRD) Non-Af 73, BUN/Creatinine Ratio 17.6, Glucose 106, Calcium 9.2 Rhythm: EKG: ECHO: Stress Test: Cardiac Cath: PCI: CT Surgery: Holter monitor: EPS: PPM: CXR: Chest CT Scan: Radiography Diagnostic Testing: Radiology Impression Chest X-Ray 01/11/22 10:06 IMPRESSION: Degenerative changes, as described above. No demonstrated acute cardiopulmonary process. Electronically Signed: Tom Mullins MD at 10:50 EDT ,
--- NOTE | 2022-01-11 11:56 | ECHOCS_ITS ---
Reason For Study: Other Procedure This was a 2D Doppler, Color Flow transthoracic echocardiogram. Contrast injection was performed. Exam performed portable in ICU/CCU. Left Ventricle Normal size and thickness. The left ventricular ejection fraction is 60 %. Posterior-Basal: Mildly hypokinetic. Mild inferior hypokinesis. Right Ventricle Normal right ventricle. Atria The left and right atria are normal. Mitral Valve Trivial mitral valve insufficiency. Tricuspid Valve Trivial tricuspid valve insufficiency. Aortic Valve Trisinus/trileaflet aortic valve. Aortic sclerosis, no stenosis. Pulmonic Valve The pulmonic valve is not well visualized. Great Vessels Normal aortic root. Pericardium/Pleural No pericardial effusion. Medication Diluted definity 4ml given slow IV push to enhance endocardial definition. MMode/2D Measurements & Calculations LVIDd: 3.6 cm IVSd: 0.96 cm Ao root diam: 3.0 cm LVIDs: 2.2 cm LVPWd: 1.1 cm FS: 40.8 % LAV(MOD-bp): 28.2 ml LA A4 area: 11.1 cm2 LA dimension(2D): 2.7 cm LAV(MOD-bp) Indexed: 13.6 ml/m2 LAV(MOD-sp2): 27.3 ml LAV(MOD-sp4): 23.3 ml RA A4 area: 11.5 cm2 Doppler Measurements & Calculations MV E max ambrose: 52.6 cm/sec Lat Peak E' [place]: 7.6 cm/sec Med Peak E' [place]: 7.1 cm/sec MV A max [place]: 60.9 cm/sec E/E' lat: 6.9 E/E' med: 7.4 MV E/A: 0.86 Ao V2 max: 103.6 cm/sec LV V1 max: 83.2 cm/sec PA V2 max: 107.1 cm/sec Ao max P.3 mmHg LV V1 max P.8 mmHg Ao V2 mean: 77.6 cm/sec Ao mean P.6 mmHg Ao V2 VTI: 19.8 cm ECHO/Echo Complete W/ Contrast Interpretation Summary The left ventricular ejection fraction is 60 %. Mild inferior hypokinesis Posterior-Basal: Mildly hypokinetic Ordering Physician: Lucrecia Cosby Referring Physician: Hortensia Carr Performed By: Mai Pizarro RDCS, RVT
[2022-01-11] MEDS: 0.9% Normal Saline 1,000 ML 150 ML IV (12:34)
--- NOTE | 2022-01-11 13:07 | HP.PCM.HOS_ITS ---
HPI - General General Date of Admission: 01/11/22 HPI Narrative NAA LENTZ, is a 66 M who presents to the hospital with chest pain about an hour prior to arrival. In the ER he was found to have an segment?in [place], initial troponin was 76. Cardiology was consulted and he was taken directly to the [facility] where he had a drug-eluting stent placed in the mid right coronary artery. Currently denies any significant chest pain and feels better than prior to admission. [facility] Medical History (Updated 01/11/22 @ 12:58 by Griselda Barahona) Anxiety Hypertension Prostate enlargement Home Medications alprazolam 0.5 mg tablet 0.5 mg PO QHS PRN PRN Anxiety 08/22/15 [History Last Taken 12/16/21 12:00] clonazepam 1 mg tablet 1 mg PO QHS Check with primary doctor 01/11/22 [History Last Taken 01/10/22 22:00] doxepin 50 mg capsule 50 mg PO QHS Check with primary doctor 01/11/22 [History Last Taken 01/10/22 22:00] linaclotide 72 mcg capsule (Linzess) 72 mcg PO DAILY Check with primary doctor 01/11/22 [History Last Taken 01/11/22 07:00] lisinopril 40 mg tablet 40 mg PO DAILY Check with primary doctor 01/11/22 [History Last Taken 01/11/22 07:00] omeprazole 40 mg capsule,delayed release 40 mg PO DAILY Check with primary doctor 01/11/22 [History Last Taken 01/11/22 07:00] Allergy/AdvReac Type Severity Reaction Status Date / Time acetaminophen [From [place]] AdvReac Other Verified 01/11/22 09:55 buspirone HCl [From [place]] AdvReac Other Verified 01/11/22 09:55 hydrocodone bitartrate AdvReac Other Verified 01/11/22 09:55 [From [place]] Family History (Updated 01/11/22 @ 15:[address] James Scott MD) Other Cancer Heart disease Surgical History (Updated 01/11/22 @ 15:[address] James Scott MD) Previous back surgery Social History (Updated 01/11/22 @ 10:[address] Tom Ge MD) Smoking Status: Never smoker substance use type: marijuana and other details: Denies cocaine ROS Constitutional Constitutional: Denies chills, fatigue, fever(s) or malaise Eyes Eyes: Denies blurry vision ENT HEENT: Denies headache(s) or nasal discharge Cardiovascular Cardiovascular: Reports chest pain; Denies dyspnea on exertion or syncope Respiratory/Chest Respiratory/Chest: Denies cough, shortness of breath at rest or shortness of breath with exertion Gastrointestinal Gastrointestinal: Denies constipation, diarrhea, nausea or vomiting Genitourinary Genitourinary: Denies dysuria Neurologic Neurologic: Denies focal weakness, numbness or tremor(s) Psychiatric Psychiatric: Denies anxiety or depression Vital Signs Vital Signs Vital Signs: 01/11/22 09:56 01/11/22 10:06 01/11/22 10:07 Temperature 97.8 F Temperature Source Temporal Pulse Rate 86 90 Respiratory Rate 18 20 H 20 H Respiratory Effort Blood Pressure 165/112 H 159/105 H 159/105 H Blood Pressure Mean 129 123 Pulse Ox 95 99 Oxygen Delivery Method Room Air Room Air 01/11/22 10:10 01/11/22 10:15 01/11/22 10:21 Temperature Temperature Source Pulse Rate 85 Respiratory Rate 18 Respiratory Effort Normal Non-Labored Blood Pressure 171/95 H Blood Pressure Mean 120 Pulse Ox 99 Oxygen Delivery Method Room Air Room Air 01/11/22 10:56 Temperature 97.8 F Temperature Source Temporal Pulse Rate 85 Respiratory Rate 18 Respiratory Effort Blood Pressure 171/95 H Blood Pressure Mean 120 Pulse Ox 99 Oxygen Delivery Method Room Air Weight Weight: 200 lb 6.403 oz Body Mass Index (BMI) 27.1 Physical Exam Narrative General: Alert, Oriented x3, Cooperative, No apparent distress HEENT: Atraumatic, PERRLA, EOMI, Normocephalic Oral: Moist Mucosa Neck: Supple, No JVD Lungs: Clear to auscultation, Normal air movement, No rhonchi, No wheeze, No rales Cardiovascular: Regular rate, Regular Rhythm, Normal S1, Normal S2, No murmurs Abdomen: Soft, Non Tender, Non-Distended, No Hepato-splenomegaly Extremities: No edema, Capillary Refill Less than 3 Seconds Skin: No rashes, No breakdown Musculoskeletal: No Tenderness to Palpation of Joints or Extremities Neurological: Cranial nerves II-XII grossly intact, Motor Exam 5/5 strength throughout, Sensory exam intact to light touch and pain Psych/Mental Status: Normal Affect, Appropriate Results Lab / Micro Data Result Diagrams: 01/11/22 10:05 01/11/22 10:05 Labs: Laboratory Results - last 24 hr 01/11/22 10:05: WBC 6.3, RBC 5.04, Hgb 15.7, Hct 45.2, MCV 89.7, MCH 31.2, MCHC 34.7, RDW Std Deviation 42.2, RDW Coeff of Kelsy 12.8, Plt Count 339, MPV 9.4, Immature Gran % (Auto) 0.200, Neut % (Auto) 49.9, Lymph % (Auto) 34.4, [place] % (Auto) 10.0, Eos % (Auto) 4.1, Baso % (Auto) 1.4 H, Absolute Neuts (auto) 3.1, Absolute Lymphs (auto) 2.16, Nucleated RBC % 0 01/11/22 10:05: PT 12.8, INR 1.0, APTT 35.8 01/11/22 10:05: Sodium 133 L, Potassium 4.5, Chloride 99, Carbon Dioxide 24.0, Anion Gap 10, BUN 19 H, Creatinine 1.08, Estim Creat Clear Calc 68.53, Est GFR (MDRD) Af Amer 88, Est GFR (MDRD) Non-Af 73, BUN/Creatinine Ratio 17.6, Glucose 106, Calcium 9.2, Troponin I High Sens 76 Rhythm Strip Rhythm Strip: Sinus Rhythm Rate: 90 Ectopy: None Radiology Impression Chest X-Ray 01/11/22 10:06 IMPRESSION: Degenerative changes, as described above. No demonstrated acute cardiopulmonary process. Electronically Signed: Tom Mullins MD at 10:50 EDT , Assessment & Plan Assessment/Plan (1) ST elevation myocardial infarction (STEMI) of inferior wall: PLAN: Plan 1. STEMI status post ALEX to the mid right coronary artery/HTN/tobacco abuse ? Encouraged tobacco cessation ? With aspirin, Plavix ? With Lipitor ? Continue with lisinopril, will attempt to start him on a beta-samanta 2. GERD ? Stable ? Continue with PPI 3. Anxiety/depression ? Stable ? Continue with benzos DVT: SCDs Charges/Coding Visit Charges Inpatient E&M: 96647 Init Hosp L2
[2022-01-11] MEDS: Carvedilol 3.125 MG TABLET PO (20:58)
[2022-01-11] MEDS: Atorvastatin Calcium 40 MG Tablet PO (20:58)
[2022-01-11] MEDS: Clopidogrel Bisulfate 300 MG Tablet PO (20:58)
[2022-01-12] VITALS (16 sets, daily range): BP systolic 108–154; BP diastolic 76–105; PULSE 59–84; RESP 12–16; TEMP 36.3–37; O2SAT 95–98
[2022-01-12 03:41] LABS: Hematocrit 42.9 % (40-54); Hemoglobin 14.5 g/dL (13.0-16.5); Mean Corp Hgb Conc 33.8 g/dL (32-36); Mean Corpuscular Hgb 30.4 pg (27.0-32.0); Mean Corpuscular Volume 89.9 fL (80-94); Mean Platelet Vol. 9.8 fl (6.2-12.0); Platelet Count 334 K/mm3 (150-450); RBC Distribution Width CV 13.2 % (11.6-14.6); RBC Distribution Width SD 43.6 fl (35.1-43.9); Red Blood Count 4.77 M/mm3 (4.6-6.2); White Blood Count 7.9 K/mm3 (4.4-11.0)
[2022-01-12 05:50] LABS: ALB/GLOB Ratio 0.9 RATIO (0.9-2.4); AST(SGOT) 74 U/L (15-37); Alanine Aminotransfer ALT/SGPT 28 U/L (16-61); Albumin, Serum 3.4 g/dL (3.2-5.0); Alkaline Phosphatase 54 U/L (45-117); Anion Gap 10 (5-15); BUN 12 mg/dL (7-18); BUN/Creat Ratio 12.4 RATIO (10-20); Calcium,Total 9.1 mg/dL (8.5-10.1); Chloride 108 mmol/L (98-107); Cholesterol 168 mg/dL (200); Creatinine, Serum 0.97 mg/dL (0.70-1.30); EST Glomerular Filtration Rate 82 mL/min (>60); Est Glom Filt Rate - Afr Amer 99 mL/min (>60); Estimated Creatinine Clearance 81.11 ml/min; Globulin 3.7 g/dL (2.2-4.2); Glucose 113 mg/dL (74-106); High Density Lipoprotein 50 mg/dL; Potassium 4.1 mmol/L (3.5-5.1); Protein, Total 7.1 g/dL (6.4-8.2); Sodium Level 139 mmol/L (136-145); Triglycerides 106 mg/dL; Very Low Density Lipoprotein 21 mg/dL (5-40)
[2022-01-12] MEDS: Clopidogrel Bisulfate 75 MG Tablet PO (08:02)
[2022-01-12] MEDS: Lisinopril 2.5 MG Tablet PO ×2 (08:02→11:26)
[2022-01-12] MEDS: Aspirin E.C. 81 MG Tablet PO (08:02)
[2022-01-12] MEDS: Carvedilol 3.125 MG TABLET PO ×2 (08:02→21:29)
--- NOTE | 2022-01-12 09:56 | PCM.PN.CARD ---
Subjective Subjective Sitting up in the Objective Data Vital Signs: Vital Signs Temp Pulse Resp BP Pulse Ox O2 Del Method 97.5 F L 72 12 154/97 H 98 Room Air 01/12/22 08:00 01/12/22 08:00 01/12/22 08:00 01/12/22 08:00 01/12/22 08:00 01/12/22 08:00 Oxygen Delivery Method Room Air Weight: 196 lb 13.965 oz Body Mass Index (BMI) 27.1 Intake & Output: Intake and Output for Last 24 Hours 01/10/22 01/11/22 01/12/22 23:59 23:59 23:59 Intake Total 3340 / 3340 1650 / 1650 Output Total 4450 / 4450 Balance -1110 / -1110 1649 / 1649 Lab / Micro Data Result Diagrams: 01/12/22 03:25 01/12/22 03:25 Labs: Laboratory Results - last 24 hr 01/11/22 10:05: WBC 6.3, RBC 5.04, Hgb 15.7, Hct 45.2, MCV 89.7, MCH 31.2, MCHC 34.7, RDW Std Deviation 42.2, RDW Coeff of Kelsy 12.8, Plt Count 339, MPV 9.4, Immature Gran % (Auto) 0.200, Neut % (Auto) 49.9, Lymph % (Auto) 34.4, [place] % (Auto) 10.0, Eos % (Auto) 4.1, Baso % (Auto) 1.4 H, Absolute Neuts (auto) 3.1, Absolute Lymphs (auto) 2.16, Nucleated RBC % 0 01/11/22 10:05: PT 12.8, INR 1.0, APTT 35.8 01/11/22 10:05: Sodium 133 L, Potassium 4.5, Chloride 99, Carbon Dioxide 24.0, Anion Gap 10, BUN 19 H, Creatinine 1.08, Estim Creat Clear Calc 68.53, Est GFR (MDRD) Af Amer 88, Est GFR (MDRD) Non-Af 73, BUN/Creatinine Ratio 17.6, Glucose 106, Calcium 9.2, Troponin I High Sens 76 01/12/22 03:25: WBC 7.9, RBC 4.77, Hgb 14.5, Hct 42.9, MCV 89.9, MCH 30.4, MCHC 33.8, RDW Std Deviation 43.6, RDW Coeff of Kelsy 13.2, Plt Count 334, MPV 9.8 01/12/22 03:25: Sodium 139, Potassium 4.1, Chloride 108 H, Carbon Dioxide 21.0, Anion Gap 10, BUN 12, Creatinine 0.97, Estim Creat Clear Calc 81.11, Est GFR (MDRD) Af Amer 99, Est GFR (MDRD) Non-Af 82, BUN/Creatinine Ratio 12.4, Glucose 113 H, Calcium 9.1, Total Bilirubin 0.40, AST 74 H, ALT 28, Alkaline Phosphatase 54, Total Protein 7.1, Albumin 3.4, Globulin 3.7, Albumin/Globulin Ratio 0.9, Triglycerides 106, Cholesterol 168, LDL Cholesterol 97, VLDL Cholesterol 21, HDL Cholesterol 50 Rhythm Strip Rhythm Strip: Sinus Rhythm Rate: 90 Ectopy: None Cardiology Labs/Tests 01/11/22 10:05: WBC 6.3, RBC 5.04, Hgb 15.7, Hct 45.2, MCV 89.7, MCH 31.2, MCHC 34.7, Plt Count 339, MPV 9.4, Immature Gran % (Auto) 0.200, Neut % (Auto) 49.9, Lymph % (Auto) 34.4, [place] % (Auto) 10.0, Eos % (Auto) 4.1, Baso % (Auto) 1.4 H, Absolute Neuts (auto) 3.1, Nucleated RBC % 0 01/11/22 10:05: PT 12.8, INR 1.0, APTT 35.8 01/11/22 10:05: Sodium 133 L, Potassium 4.5, Chloride 99, Carbon Dioxide 24.0, Anion Gap 10, BUN 19 H, Creatinine 1.08, Est GFR (MDRD) Af Amer 88, Est GFR (MDRD) Non-Af 73, BUN/Creatinine Ratio 17.6, Glucose 106, Calcium 9.2 01/12/22 03:25: WBC 7.9, RBC 4.77, Hgb 14.5, Hct 42.9, MCV 89.9, MCH 30.4, MCHC 33.8, Plt Count 334, MPV 9.8 01/12/22 03:25: Sodium 139, Potassium 4.1, Chloride 108 H, Carbon Dioxide 21.0, Anion Gap 10, BUN 12, Creatinine 0.97, Est GFR (MDRD) Af Amer 99, Est GFR (MDRD) Non-Af 82, BUN/Creatinine Ratio 12.4, Glucose 113 H, Calcium 9.1, Total Bilirubin 0.40, Triglycerides 106, Cholesterol 168, LDL Cholesterol 97, VLDL Cholesterol 21, HDL Cholesterol 50 Rhythm: EKG: ECHO: Stress Test: Cardiac Cath: PCI: CT Surgery: Holter monitor: EPS: PPM: CXR: Chest CT Scan: Radiography Diagnostic Testing: Radiology Impression Chest X-Ray 01/11/22 10:06 IMPRESSION: Degenerative changes, as described above. No demonstrated acute cardiopulmonary process. Electronically Signed: Tom Mullins MD at 10:50 EDT , Physical Exam Narrative Sounds 1 and 2 are normal. Chest clear to auscultation bilaterally. Abdomen soft bowel sounds positive. Alert oriented x3. No ankle edema noted. Right radial pulse 2+ Assessment & Plan Assessment/Plan (1) ST elevation myocardial infarction (STEMI) of inferior wall: PLAN: Stable. Continue aspirin and Plavix. Continue beta-blockers and VERA inhibitors. (2) Hypertension: PLAN: Continue carvedilol. Titrate up as tolerated. Continue VERA inhibitor. Start on hydrochlorothiazide. (3) Nicotine dependence: PLAN: Stop smoking. PLAN: Plan May transfer the patient to stepdown unit. Possible home discharge in the morning.
--- NOTE | 2022-01-12 10:00 | EKG12_ITS ---
Test Reason : AM EKG Blood Pressure : / mmHG Vent. Rate : 072 BPM Atrial Rate : 072 BPM P-R Int : 172 ms QRS Dur : 084 ms QT Int : 392 ms P-R-T Axes : 067 033 050 degrees QTc Int : 429 ms Normal sinus rhythm Nonspecific ST abnormality Abnormal ECG When compared with ECG of 11-JAN-2022 12:12, MANUAL COMPARISON REQUIRED, DATA IS UNCONFIRMED Confirmed by HARI HOOVER, ERICA ([id number]), editor dictionary DEIDRE ORTIZ ([id number]) on 01/13/2022 12:49:52 PM Referred By: KRANTHI Confirmed By:ERICA NORIEGA MD
--- NOTE | 2022-01-12 10:46 | PN.HOSP_ITS ---
Subjective Subjective Patient seen and examined. He has no complaints and feels well. He denies any chest pain, palpitations, dizziness, nausea, vomiting or diarrhea. Review of systems is otherwise negative. He has remained hemodynamically stable. Objective Data Objective Data Vital Signs: Vital Signs Temp Pulse Resp BP Pulse Ox O2 Del Method 97.5 F L 77 12 124/81 H 97 Room Air 01/12/22 08:00 01/12/22 10:00 01/12/22 10:00 01/12/22 10:00 01/12/22 10:00 01/12/22 10:00 Oxygen Delivery Method Room Air Weight: 196 lb 13.965 oz Body Mass Index (BMI) 27.1 Intake & Output: Intake and Output for Last 24 Hours 01/10/22 01/11/22 01/12/22 23:59 23:59 23:59 Intake Total 3340 / 3340 1650 / 1650 Output Total 4450 / 4450 Balance -1110 / -1110 1649 / 1649 Lab / Micro Data Result Diagrams: 01/12/22 03:25 01/12/22 03:25 Labs: Laboratory Results - last 24 hr 01/11/22 10:05: PT 12.8, INR 1.0, APTT 35.8 01/12/22 03:25: WBC 7.9, RBC 4.77, Hgb 14.5, Hct 42.9, MCV 89.9, MCH 30.4, MCHC 33.8, RDW Std Deviation 43.6, RDW Coeff of Kelsy 13.2, Plt Count 334, MPV 9.8 01/12/22 03:25: Sodium 139, Potassium 4.1, Chloride 108 H, Carbon Dioxide 21.0, Anion Gap 10, BUN 12, Creatinine 0.97, Estim Creat Clear Calc 81.11, Est GFR (MDRD) Af Amer 99, Est GFR (MDRD) Non-Af 82, BUN/Creatinine Ratio 12.4, Glucose 113 H, Calcium 9.1, Total Bilirubin 0.40, AST 74 H, ALT 28, Alkaline Phosphatase 54, Total Protein 7.1, Albumin 3.4, Globulin 3.7, Albumin/Globulin Ratio 0.9, Triglycerides 106, Cholesterol 168, LDL Cholesterol 97, VLDL Cholesterol 21, HDL Cholesterol 50 Radiography Diagnostic Testing: Radiology Impression Chest X-Ray 01/11/22 10:06 IMPRESSION: Degenerative changes, as described above. No demonstrated acute cardiopulmonary process. Electronically Signed: Tom Mullins MD at 10:50 EDT , Rhythm Strip Rhythm Strip: Sinus Rhythm Rate: 90 Ectopy: None Physical Exam Const alert, oriented x3 and no apparent distress HEENT head/scalp atraumatic, moist oral mucous membranes and oropharynx normal Head and Scalp: normocephalic Mouth: oral and palatal mucosa normal Eyes PERRL, EOMs intact bilaterally and conjunctivae normal Neck no lymphadenopathy and supple Resp normal respiratory effort, no retractions, no use of accessory muscles and clear to auscultation bilaterally Cardio regular rate, regular rhythm, S1 normal heart sound, S2 normal heart sound and no murmurs GI normal to inspection, nondistended, normoactive bowel sounds, soft to palpation, non-tender and non-distended Extremity normal to inspection, full ROM and no clubbing, cyanosis or edema Neuro oriented x3, CN's II-XII intact bilaterally, moves all extremities and no focal motor deficits Sensorium / Orientation: awake and alert Speech: speech normal Motor Exam: strength 5/5 throughout Psych affect normal Assessment & Plan Assessment/Plan (1) ST elevation myocardial infarction (STEMI) of inferior wall: PLAN: Plan #STEMI s/p PCI * Had PCI with stent placement to the mid RCA * on aspirin, plavix and high intensity statin * on lisinopril and metoprolol * cardiology on board * #GERD: on PPI #Anxiety and depression * xanax prn * * DVT Prophylaxis: SCDs Disposition: transfer out to PCU Charges/Coding Visit Charges Inpatient E&M: 24467 Subs Hosp L2
[2022-01-12] MEDS: hydroCHLOROthiazide 25 MG Tablet PO (11:26)
--- NOTE | 2022-01-12 11:28 | CASEMGMT ---
YURI SPENCE Assessment: Face to Face with patient for initial transition planning/care coordination assessment. YURI SPENCE introduced self and role at [facility], pt voices understanding and consents to assessment. Pt is sitting up in chair in no distress on room air. Pt is A/Ox4 and answers all questions appropriately.? Care providers, pharmacy,?and demographics verified/updated. ? Presentation: Pt c/o CP across center of chest and breast area, also c/o hot flashes and dry mouth Admitting dx: STEMI PCP: Bruno Specialists: None currently Preferred Pharmacy: [facility] Insurance: [facility] A/B, MMO Prescription Benefit:?MCR D-[employer] Living Will/HPOA: Pt has LW/HPOA and is aware that they are not on file at [facility]. Pt states his friend, Elif Guzman, is HPOA and he will see if she can bring AD's in. LNOK: Elif Guzman, friend-Pt states has no family Living Arrangements: Pt lives alone in 1 story home with laundry in basement and states no concerns at home. Pt is independent with ADL's. Transportation: Pt drives self and states no transportation concerns. DME/HHC: Pt has walk-in shower with built-in seat and states no further DME or need for any DME. Pt states no hx of HHC or SNF. Pt states no concerns with going home at time of discharge. Pt is retired. Pt states occasionally smokes cigarettes and drinks ETOH. Pt voices no further concerns/needs. CM to follow for any further discharge planning/needs. Advised pt to ask for CM if any further questions/concerns/needs arise, voices understanding. Pt Goal: Home ? Plan: [place] YURI SPENCE
--- NOTE | 2022-01-12 12:18 | CRPHASE1 ---
Patient Communication PHII Cardiac Rehab Discussed with Patient:: Yes Guide to Cardiac Rehab Given to Patient:: Yes Cardiac Rehab Facility Choice List Given to Patient:: Yes Choice Program [facility] CR PHII:: Communication Given to CR, Refer to [facility] [employer] Slaker:: Lucrecia Cosby Sessions:: 36 sessions - 3 days/wk, 12 weeks Cardiac Rehabilitation Info Cardiac Rehabilitation Program Information: Cardiac Rehabilitation is important for patients like you who are recovering from a heart problem. Cardiac rehabilitation programs are recognized as integral to the continued care of the patient with coronary heart disease. The cardiac rehabilitation program is designed to optimize a patient's physical, psychological, and social functioning. Health healthcare specialist work in cardiac rehabilitation programs and assist you with getting the treatments you need to get stronger and healthier - like exercise, healthy eating habits, and medications. Cardiac rehabilitation has been show to help people with heart problems live longer and have better life enjoyment than people who do not go to cardiac rehabilitation. Please contact the Cardiac Rehabilitation Program at [facility] at in two weeks if you have not heard from them.
--- NOTE | 2022-01-12 12:19 | CRPH1.INSTRU ---
General Education CAD and cardiac anatomy and function:: Patient communicates acknowledgment Explanation of diagnoses and procedures:: Patient communicates acknowledgment Sign/Symptoms of PR:: Patient communicates acknowledgment Antiplatelet therapy: Patient communicates acknowledgment Proper use of NTG-SL: Patient communicates acknowledgment Emergency procedures and activation of EMS: Patient communicates acknowledgment Compliance of all prescribed medications: Patient communicates acknowledgment Dyslipidemia Recommendations Include:: Reviewed NCEP/ATP guidelines Dyslipidemia Response Code:: Patient communicates acknowledgment Hypertension Recommendations Include:: Maintain BP <130/85, DASH dietary guidelines Hypertension:: Patient communicates acknowledgment
[2022-01-12] MEDS: clonazePAM 1 MG Tablet PO (21:19)
[2022-01-12] MEDS: DOXEPIN HCL 50 MG CAPSULE PO (21:19)
[2022-01-12] MEDS: Atorvastatin Calcium 40 MG Tablet PO (21:19)
[2022-01-13 03:00] VITALS: PULSE 72
[2022-01-13 03:30] VITALS: BP 113/68; PULSE 73; RESP 16; TEMP 36.7; O2SAT 98
--- NOTE | 2022-01-13 05:35 | EKG12_ITS ---
Test Reason : AM EKG Blood Pressure : / mmHG Vent. Rate : 072 BPM Atrial Rate : 072 BPM P-R Int : 158 ms QRS Dur : 090 ms QT Int : 410 ms P-R-T Axes : 073 027 002 degrees QTc Int : 448 ms Normal sinus rhythm Normal ECG Confirmed by MCKENZIE HOOVER, NAA ([id number]), newspaper or periodical editor DEIDRE ORTIZ ([id number]) on 01/14/2022 9:37:27 AM Referred By: EMILEE Confirmed By:NAA RINCON MD
[2022-01-13 06:23] LABS: Absolute Lymphocyte Count 2.72 X10^3/uL (0.83-4.51); Absolute Neutrophil Count 3.8 X10^3/uL (2.0-7.7); Basophil# 0.08 X10^3/uL; Basophil% 1.1 % (0-1); Eosinophil# 0.31 X10^3/uL; Eosinophils% 4.1 % (0-5); Hematocrit 47.4 % (40-54); Hemoglobin 15.7 g/dL (13.0-16.5); Lymphocyte # 2.72 X10^3/ul (0.83-4.51); Lymphocyte % 36.2 % (19-41); Mean Corp Hgb Conc 33.1 g/dL (32-36); Mean Corpuscular Hgb 30.1 pg (27.0-32.0); Mean Corpuscular Volume 90.8 fL (80-94); Mean Platelet Vol. 9.9 fl (6.2-12.0); Monocyte# 0.63 X10^3/uL; Monocyte% 8.4 % (0-10); NRBC Flagged by Analyzer 0 % (0-5); Neutrophil # 3.75 X10^3/uL (2.7-7.7); Neutrophil % 49.8 % (47-70); Platelet Count 343 K/mm3 (150-450); RBC Distribution Width CV 13.1 % (11.6-14.6); Red Blood Count 5.22 M/mm3 (4.6-6.2); White Blood Count 7.5 K/mm3 (4.4-11.0)
[2022-01-13 06:46] LABS: Anion Gap 8 (5-15); BUN 13 mg/dL (7-18); BUN/Creat Ratio 11.6 RATIO (10-20); Calcium,Total 9.2 mg/dL (8.5-10.1); Chloride 101 mmol/L (98-107); Creatinine, Serum 1.12 mg/dL (0.70-1.30); EST Glomerular Filtration Rate 70 mL/min (>60); Est Glom Filt Rate - Afr Amer 84 mL/min (>60); Estimated Creatinine Clearance 70.25 ml/min; Glucose 102 mg/dL (74-106); Potassium 3.9 mmol/L (3.5-5.1); Sodium Level 135 mmol/L (136-145)
[2022-01-13 07:00] VITALS: PULSE 75
[2022-01-13 07:50] VITALS: BP 134/90; PULSE 80; RESP 16; TEMP 36.8; O2SAT 96
[2022-01-13] MEDS: hydroCHLOROthiazide 25 MG Tablet PO (09:10)
[2022-01-13] MEDS: Aspirin E.C. 81 MG Tablet PO (09:10)
[2022-01-13] MEDS: Carvedilol 3.125 MG TABLET PO (09:10)
[2022-01-13] MEDS: Pantoprazole Sodium 40 MG Tablet PO (09:10)
[2022-01-13] MEDS: Clopidogrel Bisulfate 75 MG Tablet PO (09:10)
[2022-01-13] MEDS: Lisinopril 5 MG Tablet PO (09:39)
--- NOTE | 2022-01-13 10:00 | EKG12_ITS ---
Test Reason : Blood Pressure : / mmHG Vent. Rate : 073 BPM Atrial Rate : 073 BPM P-R Int : 196 ms QRS Dur : 092 ms QT Int : 368 ms P-R-T Axes : 080 054 067 degrees QTc Int : 405 ms Normal sinus rhythm Normal ECG When compared with ECG of 11-JAN-2022 09:59, MANUAL COMPARISON REQUIRED, DATA IS UNCONFIRMED Confirmed by HARI HOOVER, ERICA ([id number]), supervising editor trailer DEIDRE ORTIZ ([id number]) on 01/13/2022 12:50:01 PM Referred By: Confirmed By:ERICA NORIEGA MD
--- NOTE | 2022-01-13 11:47 | DCINST_ITS ---
Discharge Instructions Diet Discharge Diet: Low fat / Low cholesterol Activity Discharge Activity: Return to Normal Activity Weight Bearing Status: Weight bearing as tolerated Dressing / Incision Call your doctor if you observe: Fever of 101 or Higher, Shortness of breath, Dizziness, Swelling in the ankles, Chest pain and Increased palpitations (irregular heartbeat) Follow Up Care Test Results: Test results from this visit will be discussed in further detail at your follow- up appointment, if applicable. Discharge Plan Admission Admit Date/Time: 01/11/22 13:05 Primary Reason for Your Visit: stemi Attending Provider: Michelle Severino Primary Care Provider: Hortensia Carr Consulting Providers: James Scott ; Lucrecia Cosby Discharge Orders/Prescriptions Prescriptions: New aspirin 81 mg Tablet,Delayed Release (Dr/Ec) 81 mg PO DAILYCM Qty: 30 1RF atorvastatin 40 mg Tablet 40 mg PO QHS Qty: 30 1RF clopidogrel 75 mg Tablet 75 mg PO DAILY Qty: 30 1RF carvedilol 3.125 mg Tablet 3.125 mg PO BID Qty: 60 1RF lisinopril 5 mg Tablet 5 mg PO DAILY Qty: 30 1RF hydrochlorothiazide 25 mg Tablet 25 mg PO DAILY Qty: 30 1RF Continued alprazolam 0.5 MG tablet 0.5 mg PO QHS PRN PRN (Reason: Anxiety) doxepin 50 mg Capsule 50 mg PO QHS clonazepam 1 mg Tablet 1 mg PO QHS Rx Instructions: administer 30 minutes before bedtime Linzess 72 mcg Capsule 72 mcg PO DAILY omeprazole 40 mg Capsule,Delayed Release(Dr/Ec) 40 mg PO DAILY Discontinued lisinopril 40 mg Tablet 40 mg PO DAILY Referrals / Follow Up: Hortensia Carr MD [Primary Care Provider] - Within 2 Weeks Lucrecia Cosby MD [Med Staff - Active Staff] - Within 2 Weeks Disposition Disposition (needs filled in before D/C Order can be placed): Home, Self Care
--- NOTE | 2022-01-13 12:20 | PCM.PN.CARD ---
Subjective Subjective No complaints. Ambulating. Objective Data Vital Signs: Vital Signs Temp Pulse Resp BP Pulse Ox O2 Del Method 98.3 F 80 16 134/90 H 96 Room Air 01/13/22 07:50 01/13/22 07:50 01/13/22 07:50 01/13/22 07:50 01/13/22 07:50 01/13/22 07:50 Oxygen Delivery Method Room Air Weight: 195 lb 8.8 oz Body Mass Index (BMI) 27.1 Intake & Output: Intake and Output for Last 24 Hours 01/11/22 01/12/22 01/13/22 23:59 23:59 23:59 Intake Total 3340 / 3340 2850 / 2850 600 / 600 Output Total 4450 / 4450 Balance -1110 / -1110 2849 / 2849 600 / 600 Lab / Micro Data Result Diagrams: 01/13/22 05:30 01/13/22 05:30 Labs: Laboratory Results - last 24 hr 01/13/22 05:30: WBC 7.5, RBC 5.22, Hgb 15.7, Hct 47.4, MCV 90.8, MCH 30.1, MCHC 33.1, RDW Std Deviation 44.0 H, RDW Coeff of Kelsy 13.1, Plt Count 343, MPV 9.9, Immature Gran % (Auto) 0.400, Neut % (Auto) 49.8, Lymph % (Auto) 36.2, [place] % (Auto) 8.4, Eos % (Auto) 4.1, Baso % (Auto) 1.1 H, Absolute Neuts (auto) 3.8, Absolute Lymphs (auto) 2.72, Nucleated RBC % 0 01/13/22 05:30: Sodium 135 L, Potassium 3.9, Chloride 101, Carbon Dioxide 26.0, Anion Gap 8, BUN 13, Creatinine 1.12, Estim Creat Clear Calc 70.25, Est GFR (MDRD) Af Amer 84, Est GFR (MDRD) Non-Af 70, BUN/Creatinine Ratio 11.6, Glucose 102, Calcium 9.2 Rhythm Strip Rhythm Strip: Sinus Rhythm Rate: 90 Ectopy: None Cardiology Labs/Tests 01/13/22 05:30: WBC 7.5, RBC 5.22, Hgb 15.7, Hct 47.4, MCV 90.8, MCH 30.1, MCHC 33.1, Plt Count 343, MPV 9.9, Immature Gran % (Auto) 0.400, Neut % (Auto) 49.8, Lymph % (Auto) 36.2, [place] % (Auto) 8.4, Eos % (Auto) 4.1, Baso % (Auto) 1.1 H, Absolute Neuts (auto) 3.8, Nucleated RBC % 0 01/13/22 05:30: Sodium 135 L, Potassium 3.9, Chloride 101, Carbon Dioxide 26.0, Anion Gap 8, BUN 13, Creatinine 1.12, Est GFR (MDRD) Af Amer 84, Est GFR (MDRD) Non-Af 70, BUN/Creatinine Ratio 11.6, Glucose 102, Calcium 9.2 Rhythm: EKG: ECHO: Stress Test: Cardiac Cath: PCI: CT Surgery: Holter monitor: EPS: PPM: CXR: Chest CT Scan: Radiography Diagnostic Testing: Radiology Impression Echocardiogram 01/11/22 11:56 Interpretation Summary The left ventricular ejection fraction is 60 %. Mild inferior hypokinesis Posterior-Basal: Mildly hypokinetic Ordering Physician: Lucrecia Cosby Referring Physician: Hortensia Carr Performed By: Mai Pizarro, IVAN, RVT Physical Exam Const alert, oriented x3 and no apparent distress Neck supple Resp normal respiratory effort Cardio regular rate and regular rhythm Extremity normal to inspection and full ROM Neuro oriented x3 and moves all extremities Sensorium / Orientation: awake and alert Speech: speech normal Psych affect normal Assessment & Plan Assessment/Plan (1) ST elevation myocardial infarction (STEMI) of inferior wall: PLAN: Stable. Continue aspirin and Plavix. Continue beta-blockers and VERA inhibitors. (2) Hypertension: PLAN: Continue carvedilol. Titrate up as tolerated. Continue VERA inhibitor. Start on hydrochlorothiazide. (3) Nicotine dependence: PLAN: Stop smoking. PLAN: Plan Okay to discharge home. Follow-up as outpatient.
--- NOTE | 2022-01-13 12:20 | PHA.DC.MC ---
Pharmacy Service has performed discharge medication reconciliation and counseling for this patient. 1. ASPIRIN 81MG PO DAILYCM 2. ATORVASTATIN 40MG PO QHS 3. CLOPIDOGREL 75MG PO DAILY 4. CARVEDILOL 3.125MG PO BID 5. HYDROCHLOROTHIAZIDE 25MG PO DAILY The patient's discharge medication list was reviewed for discrepancies and discrepancies were resolved. Home Medications alprazolam 0.5 mg tablet 0.5 mg PO QHS PRN PRN Anxiety 08/22/15 clonazepam 1 mg tablet 1 mg PO QHS Check with primary doctor 01/11/22 doxepin 50 mg capsule 50 mg PO QHS Check with primary doctor 01/11/22 linaclotide 72 mcg capsule (Linzess) 72 mcg PO DAILY Check with primary doctor 01/11/22 omeprazole 40 mg capsule,delayed release 40 mg PO DAILY Check with primary doctor 01/11/22 aspirin 81 mg tablet,delayed release 81 mg PO DAILYCM #30 tabs 01/13/22 atorvastatin 40 mg tablet 40 mg PO QHS #30 tabs 01/13/22 carvedilol 3.125 mg tablet 3.125 mg PO BID #60 tabs 01/13/22 clopidogrel 75 mg tablet 75 mg PO DAILY #30 tabs 01/13/22 hydrochlorothiazide 25 mg tablet 25 mg PO DAILY #30 tabs 01/13/22 lisinopril 5 mg tablet 5 mg PO DAILY #30 tabs 01/13/22 The patient was counseled on the following discharge medications and changes in medications for homegoing were reviewed. The Reason for Use, instructions for use, and potential side effects were reviewed for all new medications. The patient's questions regarding all of their medications were answered. The patient was able to verbally demonstrate an understanding of their discharge medications.
[2022-01-13 12:28] VITALS: BP 119/91; PULSE 62; RESP 16; O2SAT 100
--- NOTE | 2022-01-13 12:42 | DS.PCM_ITS ---
Providers Date of Admission: 01/11/22 Date of Discharge: 01/13/22 Primary Care Physician: Dr. Hortensia Carr MD Consultations 01/13/22 11:09 Consult: Cardiology Routine Consulting Provider: Lucrecia Cosby Reason for Consult: stemi EMERGENT Consult: No MD Notified: Yes Date Notified: 01/11/22 Time Notified: 11:09 Method of Notification: ED Physician Initiated Reason For Visit: STEMI Diagnosis Discharge Diagnosis (1) ST elevation myocardial infarction (STEMI) of inferior wall: Status: Acute Code(s): I21.19 - ST elevation (STEMI) myocardial infarction involving other coronary artery of inferior wall (2) Hypertension: Status: Chronic Code(s): I10 - Essential (primary) hypertension (3) Nicotine dependence: Status: Acute Code(s): F17.200 - Nicotine dependence, unspecified, uncomplicated Plan #STEMI s/p PCI * Had PCI with stent placement to the mid RCA * on aspirin, plavix and high intensity statin * on lisinopril and metoprolol * cardiology on board * #GERD: on PPI #Anxiety and depression * xanax prn * * DVT Prophylaxis: SCDs Disposition: transfer out to PCU Medications at Discharge Home Medications alprazolam 0.5 mg tablet 0.5 mg PO QHS PRN PRN Anxiety 08/22/15 clonazepam 1 mg tablet 1 mg PO QHS Check with primary doctor 01/11/22 doxepin 50 mg capsule 50 mg PO QHS Check with primary doctor 01/11/22 linaclotide 72 mcg capsule (Linzess) 72 mcg PO DAILY Check with primary doctor 01/11/22 omeprazole 40 mg capsule,delayed release 40 mg PO DAILY Check with primary doctor 01/11/22 aspirin 81 mg tablet,delayed release 81 mg PO DAILYCM #30 tabs 01/13/22 atorvastatin 40 mg tablet 40 mg PO QHS #30 tabs 01/13/22 carvedilol 3.125 mg tablet 3.125 mg PO BID #60 tabs 01/13/22 clopidogrel 75 mg tablet 75 mg PO DAILY #30 tabs 01/13/22 hydrochlorothiazide 25 mg tablet 25 mg PO DAILY #30 tabs 01/13/22 lisinopril 5 mg tablet 5 mg PO DAILY #30 tabs 01/13/22 Hospital Course Operations None Procedures 2-D Echocardiogram and Cardiac catheterization Summary of Care Provided Minutes Spent on Discharge: 50 Hospital Course: Patient is a 66-year-old male with past medical history as outlined who was admitted through the ED on 01/11/2022 with a complaint of chest pain which started about an hour prior to admission. On admission initial troponin was 76 and EKG showed evidence of ST elevation ID. 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 He was subsequently admitted to the ICU. He was managed for ST elevation ID. He was started on aspirin and Plavix as well as high intensity statin, lisinopril and metoprolol. Hydrochlorothiazide was added on to help with blood pressure control. He had 2D echo done which showed EF of 60% with mild inferior hypokinesis and mildly hypokinetic posterior basal wall. He remained stable and was discharged home on 01/13/2022 on p.o. aspirin and Plavix, high intensity statin, lisinopril and metoprolol as well as hydrochlorothiazide. He is follow-up with his primary care doctor and is also to follow-up with cardiology within 1 to 2 weeks. Patient seen and examined prior to discharge. He felt well and had no active complaints. He had an uneventful night and review of systems otherwise negative. Labs and vitals reviewed. Home medications reviewed and reconciled. Physical Exam Const alert, oriented x3 and no apparent distress HEENT normocephalic, head/scalp atraumatic, hearing grossly normal bilaterally, moist oral mucous membranes and oropharynx normal Mouth: oral and palatal mucosa normal Eyes PERRL, EOMs intact bilaterally and conjunctivae normal Neck no lymphadenopathy, supple and no JVD Resp normal respiratory effort, no retractions, no use of accessory muscles and clear to auscultation bilaterally Cardio regular rate, regular rhythm, S1 normal heart sound, S2 normal heart sound and no murmurs GI normal to inspection, nondistended, normoactive bowel sounds, soft to palpation, non-tender and non-distended Extremity normal to inspection, full ROM and no clubbing, cyanosis or edema Skin no rashes or lesions noted Neuro oriented x3, CN's II-XII intact bilaterally, moves all extremities and no focal motor deficits Sensorium / Orientation: awake and alert Speech: speech normal Motor Exam: strength 5/5 throughout Psych affect normal Weight / BMI Weight Weight: 195 lb 8.8 oz Body Mass Index (BMI) 27.1 ABG / Lab / Microbiology Data Result Diagrams: 01/13/22 05:30 01/13/22 05:30 Laboratory: Laboratory Results - last 24 hr 01/13/22 05:30: WBC 7.5, RBC 5.22, Hgb 15.7, Hct 47.4, MCV 90.8, MCH 30.1, MCHC 33.1, RDW Std Deviation 44.0 H, RDW Coeff of Kelsy 13.1, Plt Count 343, MPV 9.9, Immature Gran % (Auto) 0.400, Neut % (Auto) 49.8, Lymph % (Auto) 36.2, Coles % (Auto) 8.4, Eos % (Auto) 4.1, Baso % (Auto) 1.1 H, Absolute Neuts (auto) 3.8, Absolute Lymphs (auto) 2.72, Nucleated RBC % 0 01/13/22 05:30: Sodium 135 L, Potassium 3.9, Chloride 101, Carbon Dioxide 26.0, Anion Gap 8, BUN 13, Creatinine 1.12, Estim Creat Clear Calc 70.25, Est GFR (MDRD) Af Amer 84, Est GFR (MDRD) Non-Af 70, BUN/Creatinine Ratio 11.6, Glucose 102, Calcium 9.2 D/C Instructions Discharge Diet: Low fat / Low cholesterol Weight Bearing Status: Weight bearing as tolerated Call your doctor if you observe: Fever of 101 or Higher, Shortness of breath, Dizziness, Swelling in the ankles, Chest pain and Increased palpitations (irregular heartbeat) Meaningful Use Info Meaningful Use Diagnoses (Choose all that apply): AMI AMI/Post PCI/Angioplasty Aspirin given w/in 24hrs of arrival?: Yes ASA at discharge?: Yes Antiplatelet Therapy at Discharge:: Yes Statins at discharge?: Yes [place]/ARB at discharge?: Yes Beta George at discharge?: Yes Done w/ Acute ID measure.: Yes Documented LVEF (%): 60 Discharge Plan Admission Admit Date/Time: 01/11/22 13:05 Primary Reason for Your Visit: stemi Attending Provider: Michelle Severino Primary Care Provider: Hortensia Carr Consulting Providers: James Scott Arshad Discharge Orders/Prescriptions Prescriptions: New aspirin 81 mg Tablet,Delayed Release (Dr/Ec) 81 mg PO DAILYCM Qty: 30 1RF atorvastatin 40 mg Tablet 40 mg PO QHS Qty: 30 1RF clopidogrel 75 mg Tablet 75 mg PO DAILY Qty: 30 1RF carvedilol 3.125 mg Tablet 3.125 mg PO BID Qty: 60 1RF lisinopril 5 mg Tablet 5 mg PO DAILY Qty: 30 1RF hydrochlorothiazide 25 mg Tablet 25 mg PO DAILY Qty: 30 1RF Continued alprazolam 0.5 MG tablet 0.5 mg PO QHS PRN PRN (Reason: Anxiety) doxepin 50 mg Capsule 50 mg PO QHS clonazepam 1 mg Tablet 1 mg PO QHS Rx Instructions: administer 30 minutes before bedtime Linzess 72 mcg Capsule 72 mcg PO DAILY omeprazole 40 mg Capsule,Delayed Release(Dr/Ec) 40 mg PO DAILY Discontinued lisinopril 40 mg Tablet 40 mg PO DAILY Referrals / Follow Up: Hortensia Carr MD [Primary Care Provider] - Within 2 Weeks HarjeetLucrecia dos santos MD [Med Staff - Active Staff] - Within 2 Weeks Disposition Disposition (needs filled in before D/C Order can be placed): Home, Self Care Charges/Coding Visit Charges Inpatient E&M: 90524 Disch Hosp
== END 2022-01-13 13:03 | disposition home or self-care (01) | DRG 247 ==
LOC: ED 10:14 → ICU 10:40 → PCU 01-12 14:41
PROVIDERS: Internal Medicine Cardiovascular Disease; Admitting Provider Family Medicine; Emergency Provider Emergency Medicine; PCP Family Medicine; Visit Provider Student in an Organized Health Care Education/Training Program
DX: I21.19 ST elevation (STEMI) myocardial infarction involving other coronary artery of inferior wall (principal); F12.10 Cannabis abuse, uncomplicated; K21.9 Gastro-esophageal reflux disease without esophagitis; I70.90 Unspecified atherosclerosis; F17.200 Nicotine dependence, unspecified, uncomplicated; F41.9 Anxiety disorder, unspecified; I10 Essential (primary) hypertension; F32.A Depression, unspecified; Z79.82 Long term (current) use of aspirin; Z79.02 Long term (current) use of antithrombotics/antiplatelets
CPT/HCPCS: 36415; 71045; 80048; 80053; 80061; 84484; 85025; 85027; 85610; 85730; 92941; 93005; 93306; 93458; 99152; 99153; 99285; J7030; J7040; J7050; Q9957; Q9967; A4216; C1725; C1769; C1874; C1887; C1894; C8929; C9606; J0153; J1327

== ENCOUNTER 2022-02-01 22:11 | Emergency (ER) | payer MEDICARE, OTHER, SELFPAY ==
[2022-02-01 22:12] VITALS: BP 168/95
[2022-02-01 22:14] VITALS: BP 171/115; PULSE 82; RESP 18; TEMP 36.3; O2SAT 99; BMI 26.4
--- NOTE | 2022-02-01 23:09 | EDS_ITS ---
HPI History of Present Illness Chief Complaint: Back Narrative Narrative: 86-year-old male presenting with sciatic pain. He was noted with this by his primary care doctor. He states that on the right. He states he was given a muscle relaxer this week but he cannot remember the name of it. He called his doctor and states it was not helping and he was given a second muscle relaxer. He cannot recall the name of this when either. He took 3 times today. He states he has been stretching exercises which were prescribed to him by his primary care doctor. He states he also has been sitting on a golf ball to try to help the pain. [facility] Medical History (Updated 02/01/22 @ 23:[address] Jordan Bolivar, DO) Anxiety Hypertension Nicotine dependence Prostate enlargement Home Medications alprazolam 0.5 mg tablet 0.5 mg PO QHS PRN PRN Anxiety 08/22/15 [History Last Taken 12/16/21 12:00] clonazepam 1 mg tablet 1 mg PO QHS Check with primary doctor 01/11/22 [History Last Taken 01/10/22 22:00] doxepin 50 mg capsule 50 mg PO QHS Check with primary doctor 01/11/22 [History Last Taken 01/10/22 22:00] linaclotide 72 mcg capsule (Linzess) 72 mcg PO DAILY Check with primary doctor 01/11/22 [History Last Taken 01/11/22 07:00] omeprazole 40 mg capsule,delayed release 40 mg PO DAILY Check with primary doctor 01/11/22 [History Last Taken 01/11/22 07:00] aspirin 81 mg tablet,delayed release 81 mg PO DAILYCM #30 tabs 01/13/22 [Rx Last Taken Unknown] atorvastatin 40 mg tablet 40 mg PO QHS #30 tabs 01/13/22 [Rx Last Taken Unknown] carvedilol 3.125 mg tablet 3.125 mg PO BID #60 tabs 01/13/22 [Rx Last Taken Unknown] clopidogrel 75 mg tablet 75 mg PO DAILY #30 tabs 01/13/22 [Rx Last Taken Unknown] hydrochlorothiazide 25 mg tablet 25 mg PO DAILY #30 tabs 01/13/22 [Rx Last Taken Unknown] lisinopril 5 mg tablet 5 mg PO DAILY #30 tabs 01/13/22 [Rx Last Taken Unknown] oxycodone-acetaminophen 5 mg-325 mg tablet (Percocet) 1 tab PO Q6H PRN pain 3 days #10 tabs 02/01/22 [Rx Last Taken Unknown] Allergy/AdvReac Type Severity Reaction Status Date / Time cortisone Allergy Nausea Verified 02/01/22 22:14 acetaminophen [From [place]] AdvReac Other Verified 02/01/22 22:13 buspirone HCl [From BuSpar] AdvReac Other Verified 02/01/22 22:13 hydrocodone bitartrate AdvReac Other Verified 02/01/22 22:13 [From [place]] Family History (Updated 01/11/22 @ 15:[address] James Scott MD) Other Cancer Heart disease Surgical History (Updated 01/23/22 @ 09:14 by Aaliyah Jama) H/O right coronary artery stent placement (~01/11/22) Previous back surgery ST elevation myocardial infarction (STEMI) of inferior wall (~01/11/22) Social History (Updated 01/11/22 @ 10:[address] Tom Ge MD) Smoking Status: Never smoker substance use type: marijuana and other details: Denies cocaine EXAM Physical Exam Const Vital Signs: 02/01/22 22:14 02/01/22 22:12 Temperature 97.3 F L Temperature Source Temporal Pulse Rate 82 Respiratory Rate 18 Blood Pressure 171/115 H 168/95 H Blood Pressure Mean 133 119 Pulse Ox 99 Oxygen Delivery Method Room Air Positive well nourished General Appearance ED: NAD HEENT Reports moist mucous membranes Eyes PERRL and EOMs intact bilaterally Resp normal respiratory effort Cardio regular rate and regular rhythm GI normal to inspection, nondistended, normoactive bowel sounds Extremity no clubbing, cyanosis or edema Extremity Narrative: Tenderness to palpation in the right gluteal region and right lumbar paraspinal musculature. Patient is maintaining good range of motion with flexion of the hip. Straight leg raise test is only positive near the end of hip flexion. He is able to cross his right leg across his left knee and stretch this area. He can ambulate with a stable gait. Neuro oriented x3 Sensorium / Orientation: alert Motor Exam: strength 5/5 throughout Psych mental status grossly normal Skin no rashes or lesions noted MDM MDM MDM Narrative Medical decision making narrative: Patient with continued pain from sciatica. He is tender in the sciatic region on the right however he maintains a pretty good range of motion with flexion of the hip. He states muscle relaxers are not helping him. He states he really does not want any pain medicine because it does not sit right with him but because of the continued pain he would be willing to try some. Patient did drive today and I counseled him that he would have to get a ride in order to get oxycodone. He states he cannot take [place] because it is worse for him. I co unseled him he can still use ibuprofen and Tylenol as needed. He can use Percocet for breakthrough pain. He is given a short supply of this. I recommended he call his primary care physician to be set up for physical therapy if needed. Of note patient had recent STEMI at the beginning of the month and has been doing well from the standpoint. He does state that he has not been as physically active throughout the day because of this but he is not have any chest pain or shortness of breath. He has not started cardiac rehab yet but this may be beneficial since he is more sedentary. I feel he stable for discharge. He does not need any blood work or imaging. Patient discharged in stable condition. Impression: 1. Sciatica Lab Data Attestation: I reviewed the patient's lab results. Discharge Plan Triage Chief Complaint: Back Other Complaint: Lower Extremity Injury ED Provider: Jordan Bolivar Dx/Rx/DC Orders Instructions: ED Sciatica Prescriptions: New oxycodone-acetaminophen [Percocet] 5-325 mg tablet 1 tab PO Q6H PRN (Reason: pain) 3 Days Qty: 10 0RF No Action alprazolam 0.5 MG tablet 0.5 mg PO QHS PRN PRN (Reason: Anxiety) doxepin 50 mg Capsule 50 mg PO QHS clonazepam 1 mg Tablet 1 mg PO QHS Rx Instructions: administer 30 minutes before bedtime Linzess 72 mcg Capsule 72 mcg PO DAILY omeprazole 40 mg Capsule,Delayed Release(Dr/Ec) 40 mg PO DAILY aspirin 81 mg Tablet,Delayed Release (Dr/Ec) 81 mg PO DAILYCM Qty: 30 1RF atorvastatin 40 mg Tablet 40 mg PO QHS Qty: 30 1RF clopidogrel 75 mg Tablet 75 mg PO DAILY Qty: 30 1RF carvedilol 3.125 mg Tablet 3.125 mg PO BID Qty: 60 1RF lisinopril 5 mg Tablet 5 mg PO DAILY Qty: 30 1RF hydrochlorothiazide 25 mg Tablet 25 mg PO DAILY Qty: 30 1RF Primary Care Provider: Hortensia Carr Referrals: Hortensia Carr MD [Primary Care Provider] - Disposition Disposition: Home, Self Care
[2022-02-01] MEDS: oxyCODONE 5 MG Tablet PO (23:20)
[2022-02-01 23:24] VITALS: PULSE 88; RESP 15; O2SAT 99
== END 2022-02-01 23:30 | disposition home or self-care (01) ==
PROVIDERS: Emergency Provider Student in an Organized Health Care Education/Training Program; PCP Family Medicine; Visit Provider Student in an Organized Health Care Education/Training Program
DX: M54.31 Sciatica, right side (principal); I10 Essential (primary) hypertension; Z79.82 Long term (current) use of aspirin; Z79.899 Other long term (current) drug therapy
CPT/HCPCS: 99283

== ENCOUNTER → 2022-02-17 | Outpatient (CLI) | payer MEDICARE, OTHER, SELFPAY ==
--- NOTE | 2022-02-17 07:59 | CR.HP_ITS ---
CR - History & Physical - General Arrival date:: 02/17/22 - t Arrival time:: 07:54 Date of Referral:: 01/12/22 Date of CR Evaluation:: 02/17/22 - Patient requested to have his follow-up appt before initiating CR. Referring Physician: Dr. Lucrecia Cosby Primary Diagnosis: STEMI PCI w/coronary stenting - History of Present Cardiac Event Onset Date: Enter Onset Date of cardiac illnesses in Comment field below Acute Myocardial Infarction within 12 months:: Yes - 01/12/2022 PTCA or coronary stenting:: Yes - 01/12/2022 Vessel: Mid Right Coronary artery Heart Failure EF <35%:: No - LVEF 60-64% Type of Symptoms:: Sever chest pain, no radiating pain, a little nauseated. 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 Do you often feel tired/ fatigued/ sleepy during daytime?: Yes Has anyone observed you stop breathing during sleep?: No History of Hypertension (for STOP score): Yes STOP Results: Positive - Medications Home Medications: Ambulatory Orders Medication Instructions Recorded alprazolam 0.5 mg tablet 0.5 mg PO QHS PRN PRN Anxiety 08/22/15 linaclotide 72 mcg capsule 72 mcg PO DAILY Check with primary 01/11/22 (Nalini) doctor aspirin 81 mg tablet,delayed 81 mg PO DAILYCM #30 tabs 01/13/22 release atorvastatin 40 mg tablet 40 mg PO QHS #30 tabs 01/13/22 clopidogrel 75 mg tablet 75 mg PO DAILY #30 tabs 01/13/22 hydrochlorothiazide 25 mg tablet 25 mg PO DAILY #30 tabs 01/13/22 lisinopril 5 mg tablet 5 mg PO DAILY #30 tabs 01/13/22 carvedilol 6.25 mg tablet 6.25 mg PO BID #60 tabs 02/04/22 mirtazapine 7.5 mg tablet 7.5 mg PO DAILY 02/04/22 famotidine 40 mg tablet 40 mg PO DAILY GERD #90 tabs 02/05/22 - Allergies Allergies/Adverse Reactions: Allergies cortisone Allergy (Verified 02/04/22 09:35) Nausea oxycodone Adverse Reaction (Intermediate, Verified 02/04/22 09:35) Upset Stomach buspirone HCl [From BuSpar] Adverse Reaction (Verified 02/04/22 09:35) Other I think I was just allergic to it or it didn't work, it was a long time ago hydrocodone bitartrate [From [place]] Adverse Reaction (Verified 02/04/22 09:35) Other I just don't like taking it and it messes with my stomach Advanced Directives - Advanced Directives Power of Director Of Diversity And Inclusion: Yes - Elif Wood is his POA for Health Care Living Will: Yes Advance Directives Information Provided: No Advance Directives on File: Yes DNR Order?:: No - MOLST See MOLST form: No Past Medical History - Covid-19 Screening Fever: No Unexplained muscle aches: No Current respiratory symptoms: No Upper respiratory infections symptoms: No Gastro-intestinal symptoms: No Aie-Cppx-Vxckgp symptoms: No Has tested positive for COVID-19 in last 30 days: No Date of testin02/17/22 - Fully vaccinated with recent Booster and influenza vaccine on 12/24/2021. Had contact w/person w/symptoms or Covid-19 (+) last 14 days: No Has High Risk Exposures ID'd by Health dept/Inf Control team: No 65 years or older:: Yes Lives in Assisted Living facility:: No Has a chronic lung disease or moderate to severe asthma:: No Has a serious heart condition:: No Immunocompromised:: No Severely obese (Body Mass Index of 40 or higher):: No Diabetic:: No Has chronic kidney disease undergoing dialysis:: No Has liver disease:: No - Past Medical Illness Medical History: Past Medical History (Last Updated 02/17/22 @ 08:20 by Robert Goins, GROMMET MAN, POULTRY PROCESSING SUPERVISOR, BS) Anxiety F41.9 Essential (primary) hypertension I10 Hypertension I10 Nicotine dependence F17.200 Patient states he has never smoked, but occasionally uses Marijuana medically. Prostate enlargement N40.0 - Past Surgical History Surgical History: Past Surgical History (Last Updated 01/23/22 @ 09:14 by Aaliyah Jama) H/O right coronary artery stent placement Onset Date: ~01/11/22 Z95.5 mid RCA- ALEX Synergy 3.0 x 32 Previous back surgery Z98.890 ST elevation myocardial infarction (STEMI) of inferior wall Onset Date: ~01/11/22 I21.19 - Family History Summary Family History: Family History (Last Updated 02/04/22 @ 09:41 by Aaliyah Jama) Other Cancer Heart disease Hypertension Myocardial infarction Social History - Smoking History Smoking Status: Never smoker Hx Tobacco Use: No Hx Smoking Exposure: No - Alcohol Use Alcohol Usage: Yes - occasionally been 5 weeks since last beer. - Substance Abuse Hx Substance Use: Yes - Marijuana use medically - Occupation Occupation (List type of work in comments):: Retired - Hobbies, Recreation, Social Activities Hobbies: Exercise - [address] loves being outside doing yard work etc., Other - Scuba diving Recreational Activities: I am able to engage in all my recreational activities - had to cut some back but does them all. Social Environment - Status Marital Status: Single - Current Living Arrangements Living Environment:: Alone - Children Do any of your children live nearby?: No - Safety Do you feel safe in your surroundings?: Yes - Assistance Do you need any assistance at home?: no fully independent. Review of Systems - Review of Systems Hints: Right click = Denies ([place]). Left click = Reports ([place]) Review of Present Symptoms: Reports: Dizziness/Lightheadedness - a couple of times after first starting the new medications, but have minimized since. He does use precaution when standing from a sitting position., Fatigue - usually in the morning when doesn't sleep well. Sometimes feels more tired than he did when he went to bed., Appetite - Normal, Appetite - Special Diet - pretty stingint in what he eats, learned to eat a healthy diet and limits processed foods.. Denies: Shortness of Breath at Rest, Shortness of Breath with Exertion, Angina, Heart Arrhythmia/Irregularities, Sleep - Normal, Sexual Changes - Pain Is Patient Pain Free?: No Pain Location: back, lower extremity Pain Level: 9/10 - Right side sciatic pain. Had a plate and screws for collapsed vertebrae in his lower back done at the [facility] and has a follow-up appointment on 02/23/2022 to evaluate the pain. Risk Factor Assessment - Chief Complaint Chief Complaint: STEMI, PCI w/coronary stenting to the mid right coronary artery - Vital Signs Temperature: 98.1 F Respiratory Rate: 14 Pulse Ox: 98 Blood Pressure: 130/89 Nailbeds:: pink - Pulse Pulse Rate: 77 Pulse Rhythm: Regular - Hypertension How long have you been treated?: has been on Lisinopril for a period of time prior to his heart attack Blood Pressure Sitting - Left Arm: 130/89 - Stress Stress: Recent - Blood Cholesterol/Lipids Total Cholesterol (mg/dL) Goal = less than 200 mg/dL: 168 HDL Cholesterol (mg/dL) Goal = less than 40 mg/dL: 50 LDL Cholesterol (mg/dL) Goal = less than 70 mg/dL: 97 Triglycerides (mg/dL) Goal = less than 150 mg/dL: 106 - Obesity Height: 6 ft Weight:: 192 lb Weight in Pounds: 192.0 lbs Weight Source: Standing Scale Body Mass Index (BMI): 26.0 Nutritional Referral for Obesity: No - Physical Inactivity Physical Inactivity: Reg Exercise 30 min/day, Recreational activity - Risk Stratification Risk Guidelines: Lowest Risk: Risk Factor for Smoking, Risk Factor for Dyslipidemia, Risk Factor for Diabetes, Risk Factor for Obesity, Risk Factor for Sedentary Lifestyle, Risk Factor for Depression, Moderate Risk: Risk Factor for Hypertension - Stage I Hypertension - Family History Family History: Family History (Last Updated 02/04/22 @ 09:41 by Aaliyah Jama) Other Cancer Heart disease Hypertension Myocardial infarction Motivation - Motivation to Participate On a scale of 1 to 10, how prepared are you to commit to attending program?: 7 - A lot more motivated prior to the sciatic pain. What do you see as barriers to successfully being able to complete the program?: Sciatic pain. What do you see as the benefits of succesfully completing the program? In other words, what do you hope to get out of participating in the program?: improving my health Are there issues you are dealing with that will interfere with completing the program?: Recent onset of the sciatic pain. Has a follow-up with the [facility]. Do you have a spouse or signficant other, family or friends who will help support you to complete the program?: Yes from friends. Has no family left.
--- NOTE | 2022-02-17 08:00 | PCM.CR.ITP ---
Diagnosis - General Information Admitting Diagnosis: STEMI, PCI w/coronary stenting Secondary Diagnosis: Hypertension, LVEF 60-64% Personal Learning Style:: Audio/Visual, Written Barriers to Learning: Vision Impairment Gave educational material for:: Treating Heart Disease, Emotions & Heart Disease, Stress Management & Relaxation, Sleep Disorders & Heart Disease, How The Heart Works, What it means to have Heart Disease, How Coronary Artery Disease is Diagnosed, Heart Procedures, What Heart Medications Do, Risk Factors & Modifications, Living an Active Life, Nutrition - Education/Goals Individual Counseling: Initial Assessment: Nicotine/Smoking, Abnormal Cholesterol Levels, High Blood Pressure Cardiac Rehabilitation Goals: 1. Maintain the individual as the primary focus of care. 2. To improve the patient's quality of life. 3. Identification of cardiac risk factors and provide cardiac risk factor management. 4. Enhance the psychosocial status of the patient. 5. Reconditioning enough to allow the patient to resume customary activities. 6. Control symptoms of cardiac disease Personal Goals: Initial Assessment: Improve management of stress and emotions, Improve energy level, Participate in home exercise program, Get back to work, or to resume activities faster, Improve knowledge of cardiac disease, Improve muscle strength and endurance, Improve diet and eating habits (eat healthier), Control risk factors (learn risk factor modification) Scale for measuring improvement of personal goals: Enter appropriate number in Comments. 2 = Unchanged. 3 = Slightly Better. 4 = Moderate Improvement. 5 = Met my Goal - Diagnosis & Disease Process Outcomes/Goals: Pt IDs own risk factors & lifestyle modifications by Session 10, Verbalizes symptoms of angina & response by session 3., Pt independently manages Plan/Interventions: Assist Pt to ID & engage in lifestyle modification to reduce CVD risk, Instruct on individual risk factors, Review symptoms of angina & emergency actions, Review secondary diagnosis & identify educational needs. - Safety Referral to Physical Therapy: No Referral to [facility] Case Management: No Fall Risk Assessed:: Yes Assistive Devices:: None Exercise - Initial Assessment - Visit Date of Eval: 02/17/22 Session #:: 0 - Pre-cardiac Rehab Evaluation Mets: Pre-: >7 METS for 30 minutes by discharge - Physician Prescribed Exercise Modalities: Treadmill, Rower, Airdyne Frequency: 3x/week for 12 weeks [36 sessions] Intensity: 60-80% of age predicted maximum heart rate reserve Duration: 30 - 45 minutes Current METSs:: 4.0 Target Heart Rate:: 100-130 Resting Blood Pressure: 130/89 - mechanically taken EKG Type: Normal Sinus Rhythm Current Physical Activity or Exercising minutes: Sits < 3 hours day - Outcomes & Goals Goals:: Verbalizes understanding of THR, RPE & goal METS by session 6, Documents in home exercise log/reports 30 min aerobic 5 day/wk by DC, Demonstrates accurate pulse taking by DC - Intervention & Plan Exercise Program Goals: Instruct on personal THR & RPE, Instruct on MET level & personal MET goal, Show patient to take own pulse /validate performance until accurate, Instruct on home exercise - Physical Activity Home Exercise Physical Activity - Home Exercise: Safe Exercise, Warm-up, Self-monitoring, Cool-Down, Home Exercise > 30 min Daily, Sitting Time <3 hours/daily - Outcomes & Goals Outcomes/Goals: Demonstrates correct Warm-up/exercise Cool-Down (S3) if = 2.5 METs, Verbalizes symptoms of exercise intolerance by Session 3 (S3), Demonstrate safe equipment use (S3) & follows exercise prescrition (6) - Intervention & Plan Plan/Intervention: Instruct warm-up & cool-down if exercising at > 2 METs, Instruct on symptoms of exercise intolerance & actions to take, Instruct & monitor on saf, Assess intial functional capacity & safety risk Nutrition - Initial Assessment - Program Goals Nutrition Program Goals: LDL <100 optimal. 100 - 129 Near optimal. 130 - 159 Borderline High. 160 - 189 High. Total Cholesterol <200 desirable. 200 - 239 Borderline High. >/= 240 High. HDL < 40 Low >/=60 High. Triglycerides <150 desirable. <199 optimal. VlDL 5 - 40. HgbA1C <7%. BMI <25 Patient has diagnosis of Hyperlipidemia (ICD E78)?: No - Visit Date of Assessment:: 02/17/22 Session #:: 0 - Pre-cardiac Rehab Evaluation - Cholesterol/Lipids (Other Core Measures) Triglycerides (mg/dL): 106 - 01/12/2022 Total Cholesterol (mg/dL): 168 LDL Cholesterol (mg/dL): 97 HDL Cholesterol (mg/dL): 50 Determine presence & major risk factors that modify LDL goal: Cigarette smoking, Hypertension or hypertensive medication, Family history of premature CHD in Male < 55 years: female <65 yearsFa, Age men > 45 years; women >/= 55 years Outcomes/Goals: Pt IDs own risk factors & lifestyle modifications by Session 10, Verbalizes symptoms of angina & response by session 3., Pt independently manages Intervention/Plan: Instruct on personal lipid levels & lipid goals/NCEP guidelines, Instruct on cholesterol Referral to dietitian:: Yes - Medical Nutrition Therapy - Diabetes (Other Core Measures) Diabetes Type: Not Applicable - Weight Mgt (Other Care) Not Applicable: No Height: 6 ft Weight:: 192 lb BMI: 26.0 Diagnosis Overweight/Obesity BMI> 30% ICD-10 E66: No Diagnosis High BMI/Morbid Obesity BMI> 35% ICD-10 Z68: No Outcomes/Goals: Pt sets, maintains & shows weight loss goal & trend during rehab Intervention/Plan: Instruct on ideal BMI & set weight loss goal w/patient - Healthy Eating Habits Will attend diet classes:: Yes Outcomes/Goals:: Consume diet rich in vegs,fruits,whole grain/high fiber,fish,lean meat, Limit sat/trans fats,cholesterol & added salts & sugars Intervention/Plan:: Assess current eating habits - Education Gave educational materials for:: Healthy eating Nutrition - 30-Day Assessment Nutrition - 60-Day Assessment Nutrition - 90-Day Assessment Nutrition - Final Assessment Core - Initial Assessment - Visit Date of Eval: 02/17/22 Session #:: 0 - Initial Cardiac Rehab Evaluation - Medication Compliance Preventative Medication(s):: Aspirin, Clopidogrel/P2Y12 inhibit, Statin/lipid - Having side effect to the Lipitor called YURI Fischer in Dr. Cosby's office to advise, Beta samanta H/O mental health issues: depression, anxiety, or addiction?: No Doesn?t believe in the benefits of treatment?: No Believes medications are unnecessary or harmful?: No Has a concern about medication side effects?: No Expresses concern over the cost of medications?: No Outcomes/Goals: Verbalizes medications,desired effect & common side effects @ DC, Pt self-reports following medication regimen, Keeps card in wallet w/medications listed by DC Interventions/plans: Instruct on medication effects & side effects, Review medication list w/patient every two weeks, Instruct importance of taking meds as ordered & assist problem solving - Tobacco Use Tobacco Use: - - Occasional use of Marijuana medical card for arthritic pain and sciatic Do you use smokeless tobacco?: No - Hypertension Hypertension Diagnosis:: Hypertension ICD-10 I10 Resting Blood Pressure:: 130/89 - Stage I Hypertension [place] [employer] Hypertension Guidelines: [place] [employer] Hypertension Guidelines. Normal BP Less than 120/80. Elevated BP 120/80. Hypertension Stage 1: BP 130-139/80-89. Hypertesnion Stage 2: BP 140 or higher/90 or higher. Hypertension Crisis: BP higher than 180/120 Outcomes/Goals: Able to verbalize/achieve optimal blood pressure <130/80, Incorporates diet changes & exercise for blood pressure control by DC Interventions/plan: Instruct on optimal blood pressure, hypertension & medications, Instruct on effects of sodium, alcohol, stress, exercise &hypertension - Tobacco Cessation Referral Smoking Cessation Referral:: No Individual Education/Counseling:: No Education Schedule Given:: Yes - Education book given to patient with instruction to access [employer] [employer]. Core - 30-Day Assessment Core - 60-Day Assessment Core - 90 Day Assessment Core - Final Assessment Psychosocial - Initial Assess - VIsit Date of Eval: 02/17/22 Session #:: 0 - Initial Cardiac Rehab Evaluation Not Applicable: Yes History of previous Mental disease:: No - Psychosocial Test Tool Used:: [employer] QOL Cardiac, PHQ-9 Questionnaire phq-9 Severity: Severity. 1-4 Minimal Depression. 5-9 Mild Depression. 10-14 Moderate Depression. 15-19 Moderately Sever Depression. 20-27 Severe Depression. Rule: - Referral to Behavioral Health PS - Interventions: Yes Attend Stress Management Classes, No Referral to Behavioral Health if PHQ-9 score >9:, No Referral to [facility], No Referral to Physician if PHQ-9 if score is 5-9: - Outcomes/Goals: See list Psychosocial Outcomes/Goals:: ID's personal stressors & 2 strategies to manage stress by discharge - Intervention/Plan: See List Interventions/Plan:: Assess stressors,coping strategies & signs of derpression on admission, Instruct/assist pt to develop coping & personal stress Mgt strategies, Instruct patient to recognize signs & symptoms of depression, Instruct patient to recog Psychosocial - 30-Day Assess Psychosocial - 60-Day Assess Psychosocial - 90-Day Assess Psychosocial - Final Assessmen Patient Health Questionnaire Initial Assessment 1. Little interest or pleasure in doing things: More than half the days 2. Feeling down, depressed, or hopeless: Several days 3. Trouble falling or staying asleep, or sleeping too much: Nearly every day 4. Feeling tired or having little energy: Nearly every day 5. Poor appetite or overeating: More than half the days 6. Feeling bad about yourself -- or that you are a failure or have let yourself or your family down: More than half the days 7. Trouble concentrating on things, such as reading the newspaper or watching television: More than half the days 8. Moving or speaking so slowly that other people could have noticed. Or the opposite - being so fidgety or restless that you have been moving around a lot more than usual: Not at all 9. Thoughts that you would be better off , or of hurting yourself in some way: Not at all How difficult have these problems made it for you to do your work, take care of things at home, or get along with other people?: Somewhat difficult Total Score: 15 VAN-Q SV Test - Statements CAD is a disease of the arteries in the heart: False Examples of risk factors for heart disease: True Angina is chest pain or discomfort: True The benefits of resistance training include: True Eating more meat and dairy products: False Anti-platelet medications such as aspirin are important: True The only effective way to manage stress: False An exercise warm-up slowly increases heart rate: True Prepared, processed foods usually have high sodium: True Depression is common after a heart attack: True The statin medications lower cholesterol: True To control blood pressure, lower the amount of sodium: True If someone gets chest discomfort during walking: False Transfats are partially hydrogenated vegetable oils: True Sleep apnea that is not treated increases the risk: False To control cholesterol, one should become a vegetarian: False Someone knows if he/she is exercising at the right level: True Diabetes cannot be prevented with exercise & health eating: False Stress is a large risk for heart attack: True A diet that can help lower blood pressure is rich in: True - Total Score Total Correct Responses: 20 Self-Efficacy Initial Assessment We would like to know how confident you are in doing certain activities. Please select your confidence level for:: Select your confidence level for the following using the scale 1-10 where 1 is not at all confident and 10 is totally confident. Your score is the average of all 6 responses. Fatigue: How confident are you that you can keep the fatigue caused by your disease from interfering with the things you want to do? Select Number: 10 Physical Discomfort or Pain: How confident are you that you can keep the physical discomfort or pain of your disease from interfering with the things you want to do? Select Number: 10 Emotional Distress: How confident are you that you can keep the emotional distress caused by your disease from interfering with the things you want to do? Select Number: 8 Other Symptoms or Health Problems: How confident are you that you can keep other symptoms or health problems from interfering with the things you want to do? Select Number: 10 Different Tasks and Activities: How confident are you that you can do the different tasks and activities needed to manage your health condition so as to reduce your need to see a doctor? Select Number: 10 Medication: How confident are you that you can do things other than just taking medication to reduce how much your illness affects your everyday life? Select Number: 10 Total Score:: 9 Nutrition Survey - Nutrition Survey Initial Have you lost >10 lbs over the past 2 months without trying?: Yes Are you following a special diet at home for diabetes, low fat, or low salt?: No Are you interested in meeting with a dietitian for help understanding your diet?: Yes Do you eat less than 3 meals a day?: No Do you eat fatty meats (frazier, sausage, ribs, etc), fried foods, desserts, large amounts of salad dressings, margarine, butter, or cheese most days?: No Do you have food allergies? [Enter types in comment field]: No Do you eat in restaurants more than 3 times a week?: No Do you season food with salt, seasoning salt, or garlic salt?: Yes Do you used canned, boxed, frozen meals, or soups, seasoning packets?: No Total Score:: 3
[2022-02-17 08:38] VITALS: BP 130/89; PULSE 77; RESP 14; TEMP 36.7; O2SAT 98; BMI 26.0
[2022-02-17 09:26] VITALS: BP 130/89; BMI 26.0
== END | disposition home or self-care (01) ==
LOC: CR 07:55
PROVIDERS: PCP Family Medicine; Referring Provider Internal Medicine Cardiovascular Disease; Visit Provider Internal Medicine Cardiovascular Disease
DX: Z95.5 Presence of coronary angioplasty implant and graft (principal)

== ENCOUNTER → 2022-02-19 | Outpatient (CLI) | payer MEDICARE, OTHER, SELFPAY ==
[2022-02-17 09:26] VITALS: BMI 26.0
[2022-02-19 09:30] LABS: Anion Gap 7 (5-15); BUN 16 mg/dL (7-18); BUN/Creat Ratio 16.8 RATIO (10-20); Calcium,Total 9.2 mg/dL (8.5-10.1); Chloride 96 mmol/L (98-107); Creatinine, Serum 0.95 mg/dL (0.70-1.30); EST Glomerular Filtration Rate 84 mL/min (>60); Est Glom Filt Rate - Afr Amer 101 mL/min (>60); Glucose 80 mg/dL (74-106); Potassium 4.1 mmol/L (3.5-5.1); Sodium Level 132 mmol/L (136-145)
== END | disposition home or self-care (01) ==
LOC: LAB 08:27
PROVIDERS: PCP Family Medicine; Referring Provider Internal Medicine Cardiovascular Disease; Visit Provider Internal Medicine Cardiovascular Disease
DX: I10 Essential (primary) hypertension (principal); R42 Dizziness and giddiness
CPT/HCPCS: 36415; 80048

== ENCOUNTER → 2022-02-26 | Outpatient (CLI) | payer MEDICARE, OTHER, SELFPAY ==
[2022-02-17 09:26] VITALS: BMI 26.0
[2022-02-26 12:12] LABS: Anion Gap 6 (5-15); BUN 15 mg/dL (7-18); BUN/Creat Ratio 15.1 RATIO (10-20); Calcium,Total 9.6 mg/dL (8.5-10.1); Chloride 96 mmol/L (98-107); Creatinine, Serum 0.99 mg/dL (0.70-1.30); EST Glomerular Filtration Rate 80 mL/min (>60); Est Glom Filt Rate - Afr Amer 97 mL/min (>60); Glucose 111 mg/dL (74-106); Potassium 4.3 mmol/L (3.5-5.1); Sodium Level 134 mmol/L (136-145)
== END | disposition home or self-care (01) ==
LOC: LAB 11:01
PROVIDERS: PCP Family Medicine; Visit Provider Internal Medicine Cardiovascular Disease
DX: R42 Dizziness and giddiness (principal); I10 Essential (primary) hypertension
CPT/HCPCS: 36415; 80048

== ENCOUNTER 2022-03-11 08:00 | Outpatient (RCR) | payer MEDICARE, OTHER, SELFPAY ==
[2022-02-17 08:12] VITALS: BMI 26.0
== END 2022-03-11 23:59 ==
LOC: CR 08:00
PROVIDERS: PCP Family Medicine; Referring Provider Internal Medicine Cardiovascular Disease; Visit Provider Internal Medicine Cardiovascular Disease
DX: I10 Essential (primary) hypertension (principal); I25.2 Old myocardial infarction; Z95.5 Presence of coronary angioplasty implant and graft
CPT/HCPCS: 93798

== ENCOUNTER 2022-04-10 08:00 | Outpatient (RCR) | payer MEDICARE, OTHER, SELFPAY ==
[2022-02-17 09:26] VITALS: BMI 26.0
== END 2022-04-11 23:59 ==
LOC: CR 08:00
PROVIDERS: PCP Family Medicine; Referring Provider Internal Medicine Cardiovascular Disease; Visit Provider Internal Medicine Cardiovascular Disease
DX: I25.2 Old myocardial infarction (principal); I10 Essential (primary) hypertension; Z95.5 Presence of coronary angioplasty implant and graft
CPT/HCPCS: 93798

== ENCOUNTER → 2022-05-06 | Outpatient (CLI) | payer MEDICARE, OTHER, SELFPAY ==
[2022-04-17 11:21] VITALS: BMI 27.0
--- NOTE | 2022-05-06 09:35 | STRESSREP_ITS ---
Stress Test Report Date: 05/06/2022 Procedure: Pharmacologic stress nuclear imaging study Indications: Coronary artery disease Consent: Per the patient Procedure: The patient underwent pharmacologic (Regadenoson 0.4mg ) evaluation with a peak heart rate of 97 beats per minute (60%predicted maximal heart rate) and a peak blood pressure of 138/82 mmHg. The baseline ECG demonstrated normal sinus rhythm. The peak pharmacologic ECG demonstrated no ischemic changes. There were no cardiac dysrhythmias pretest, during pharmacologic infusion, or recovery. There was no complaint of chest discomfort during pharmacologic infusion or recovery. The patient was injected with 12.0 millicuries of technetium 99m Cardiolite and subsequently rest SPECT Cardiolite nuclear imaging was obtained in the horizontal long, vertical long, and short axis views. The patient underwent pharmacologic (Regadenoson) evaluation. The patient was injected with 34.8 mil licuries of technetium 99m Cardiolite and subsequently stress SPECT Cardiolite nuclear imaging was obtained in the horizontal long, vertical long, and short axis views. A gated Cardiolite study at peak stress was obtained. The examination was stopped secondary to completion of protocol. Rest and stress SPECT Cardiolite nuclear imaging status post realignment, normalization, and attenuation correction demonstrate no fixed or reversible perfusion defects. There is end systolic thickening and brightening. The gated Cardiolite study demonstrates myocardial thickening and inward wall motion. The reported LVEF is 74%. Impression: 1. Pharmacologic (Regadenoson) evaluation 2. Peak pharmacologic ECG with no ischemic changes. 3. There were no cardiac dysrhythmias pretest, during pharmacologic infusion, or recovery. 5. No fixed or reversible perfusion defects. 6. The gated Cardiolite study reports an LVEF of 74%. This note was generated with whistleBoxation software. It may contain incorrect words, spelling, and punctuation that were not noted in checking the note before signing.
== END | disposition home or self-care (01) ==
LOC: CVS 06:22
PROVIDERS: PCP Family Medicine; Visit Provider Internal Medicine Cardiovascular Disease
DX: I25.10 Atherosclerotic heart disease of native coronary artery without angina pectoris (principal)
CPT/HCPCS: 78452; 93017; A9500; A4216; J2785

== ENCOUNTER 2022-05-11 08:00 | Outpatient (RCR) | payer MEDICARE, OTHER, SELFPAY ==
[2022-02-17 09:26] VITALS: BMI 26.0
--- NOTE | 2022-04-17 11:13 | CR.ITP_ITS ---
Diagnosis Exercise - 60-day Assessment - Visit Date of Eval: 04/17/22 Session #:: 12 - Physician Prescribed Exercise Modalities: Treadmill, Airdyne, NuStep Frequency: 3x/week for 12 weeks [36 sessions] Intensity: 60-80% of age predicted maximum heart rate reserve Current METSs:: 5 Target Heart Rate:: 100-130 Current RPE:: 12-13 Maximum Excercise HR:: 101 Resting Blood Pressure: 110/70 Maximum Exercise Blood Pressure: 132/78 - Outcomes & Goals Goals:: Verbalizes understanding of THR, RPE & goal METS by session 6, Documents in home exercise log/reports 30 min aerobic 5 day/wk by DC, Demonstrates accurate pulse taking by DC, Other additional outcome/goals: see below - Intervention & Plan Exercise Program Goals: Instruct on personal THR & RPE, Instruct on MET level & personal MET goal, Show patient to take own pulse /validate performance until accurate, Instruct on home exercise, Other additional plan/int - 30-day Reassessments 30 day Reassessments:: Progressing - THR explained - Outcomes & Goals Outcomes/Goals: Demonstrates correct Warm-up/exercise Cool-Down (S3) if = 2.5 METs, Verbalizes symptoms of exercise intolerance by Session 3 (S3), Demonstrate safe equipment use (S3) & follows exercise prescrition (6), Other: See below - Intervention & Plan Plan/Intervention: Instruct warm-up & cool-down if exercising at > 2 METs, Instruct on symptoms of exercise intolerance & actions to take, Instruct & monitor on saf, Assess intial functional capacity & safety risk, Other See below - 30-day Reassessments 30 day Reassessments:: Progressing - cool down encouraged Nutrition - Initial Assessment Nutrition - 30-Day Assessment Nutrition - 60-Day Assessment - Program Goals Nutrition Program Goals: LDL <100 optimal. 100 - 129 Near optimal. 130 - 159 Borderline High. 160 - 189 High. Total Cholesterol <200 desirable. 200 - 239 Borderline High. >/= 240 High. HDL < 40 Low >/=60 High. Triglycerides <150 desirable. <199 optimal. VlDL 5 - 40. HgbA1C <7%. BMI <25 Patient has diagnosis of Hyperlipidemia (ICD E78)?: No - Visit Date of Assessment:: 04/17/22 Session #:: 12 - Cholesterol/Lipids (Other Core Measures) Determine presence & major risk factors that modify LDL goal: Cigarette smoking, Hypertension or hypertensive medication, Low HDL cholesterol <40 mg/dL*, Family history of premature CHD in Male < 55 years: female <65 yearsFa, Age men > 45 years; women >/= 55 years Outcomes/Goals: Pt IDs own risk factors & lifestyle modifications by Session 10, Verbalizes symptoms of angina & response by session 3., Pt independently manages, Other Additional Outcomes/Goals: Intervention/Plan: Advocate for lipid panel cholesterol medication if applicable, Instruct on personal lipid levels & lipid goals/NCEP guidelines, Instruct on cholesterol, Other additional plan/int 30-day Reassessments:: Progressing - risk factors explained - Diabetes (Other Core Measures) Diabetes Type: Not Applicable - Weight Mgt (Other Care) Height: 6 ft Weight:: 90.492 kg BMI: 27.0 Diagnosis Overweight/Obesity BMI> 30% ICD-10 E66: No Outcomes/Goals: Pt sets, maintains & shows weight loss goal & trend during rehab, Other additional outcomes/goals Intervention/Plan: Instruct on ideal BMI & set weight loss goal w/patient, Assist pt to ID & incorporate diet changes for weight loss by S9, Refer to Structured Weight Loss program as appropriate, Encourage goal of using 250- 300dcal per session for weight loss, Other additional plan/interventions 30 day Reassessments:: Progressing - attending nutrition class - Healthy Eating Habits 30-day Reassessments:: Progressing - attending nutrition class - Education Gave educational materials for:: Signs & symptoms of hypoglycemia, Signs & symptoms of hyperglycemia, Relate diabetes to coronary artery disease, Healthy eating Nutrition - 90-Day Assessment Nutrition - Final Assessment Core - Initial Assessment Core - 30-Day Assessment Core - 60-Day Assessment - Visit Date of Eval: 04/17/22 Session #:: 12 - Medication Compliance Preventative Medication(s):: Aspirin, Clopidogrel/P2Y12 inhibit, Beta samanta H/O mental health issues: depression, anxiety, or addiction?: No Doesn?t believe in the benefits of treatment?: No Believes medications are unnecessary or harmful?: No Has a concern about medication side effects?: No Expresses concern over the cost of medications?: No Outcomes/Goals: Verbalizes medications,desired effect & common side effects @ DC, Pt self-reports following medication regimen, Keeps card in wallet w/medications listed by DC, Other additional outcome/goals: Interventions/plans: Instruct on medication effects & side effects, Review medication list w/patient every two weeks, Instruct importance of taking meds as ordered & assist problem solving, Other additional 30-day Reassessments:: Progressing - Tobacco Use Tobacco Use: Non-smoker Do you use smokeless tobacco?: No - Hypertension Hypertension Diagnosis:: Hypertension ICD-10 I10 Resting Blood Pressure:: 110/70 [place] [employer] Hypertension Guidelines: [place] [employer] Hypertension Guidelines. Normal BP Less than 120/80. Elevated BP 120/80. Hypertension Stage 1: BP 130-139/80-89. Hypertesnion Stage 2: BP 140 or h igher/90 or higher. Hypertension Crisis: BP higher than 180/120 Peak Exercise Blood Pressure:: 132/78 Outcomes/Goals: Able to verbalize/achieve optimal blood pressure <130/80, Incorporates diet changes & exercise for blood pressure control by DC, Other additional outcomes/goals Interventions/plan: Instruct on optimal blood pressure, hypertension & medications, Instruct on effects of sodium, alcohol, stress, exercise &hypertension, Other additional plan/interventions 30 day Reassessments:: Progressing - taking meds - Tobacco Cessation Referral Smoking Cessation Referral:: No Individual Education/Counseling:: No Education Schedule Given:: Yes Core - 90 Day Assessment Core - Final Assessment Psychosocial - Initial Assess Psychosocial - 30-Day Assess Psychosocial - 60-Day Assess - VIsit Date of Eval: 04/17/22 Session #:: 12 History of previous Mental disease:: No - Outcomes/Goals: See list Psychosocial Outcomes/Goals:: ID's personal stressors & 2 strategies to manage stress by discharge, Other Additional outcome/goals: - Intervention/Plan: See List Interventions/Plan:: Assess stressors,coping strategies & signs of derpression on admission, Instruct/assist pt to develop coping & personal stress Mgt strategies, Refer to Behavioral Health if appropriate, Refer to Physician if appropriate, Instruct patient to recognize signs & symptoms of depression, Instruct patient to recog, Other additional plan/intervention Psychosocial - 90-Day Assess Psychosocial - Final Assessmen Patient Health Questionnaire 60-Day Re-eval Assessment 1. Little interest or pleasure in doing things: More than half the days 2. Feeling down, depressed, or hopeless: Several days 3. Trouble falling or staying asleep, or sleeping too much: Nearly every day 4. Feeling tired or having little energy: More than half the days 5. Poor appetite or overeating: More than half the days 6. Feeling bad about yourself -- or that you are a failure or have let yourself or your family down: More than half the days 7. Trouble concentrating on things, such as reading the newspaper or watching television: More than half the days 8. Moving or speaking so slowly that other people could have noticed. Or the opposite - being so fidgety or restless that you have been moving around a lot more than usual: Not at all 9. Thoughts that you would be better off , or of hurting yourself in some way: Not at all How difficult have these problems made it for you to do your work, take care of things at home, or get along with other people?: Somewhat difficult Total Score: 14 Self-Efficacy 60-Day Re-eval Assessment We would like to know how confident you are in doing certain activities. Please select your confidence level for:: Select your confidence level for the following using the scale 1-10 where 1 is not at all confident and 10 is totally confident. Your score is the average of all 6 responses. Fatigue: How confident are you that you can keep the fatigue caused by your disease from interfering with the things you want to do? Select Number: 10 Physical Discomfort or Pain: How confident are you that you can keep the physical discomfort or pain of your disease from interfering with the things you want to do? Select Number: 10 Emotional Distress: How confident are you that you can keep the emotional distress caused by your disease from interfering with the things you want to do? Select Number: 8 Other Symptoms or Health Problems: How confident are you that you can keep other symptoms or health problems from interfering with the things you want to do? Select Number: 10 Different Tasks and Activities: How confident are you that you can do the different tasks and activities needed to manage your health condition so as to reduce your need to see a doctor? Select Number: 10 Medication: How confident are you that you can do things other than just taking medication to reduce how much your illness affects your everyday life? Select Number: 10 Total Score:: 9 Nutrition Survey
[2022-04-17 11:21] VITALS: BP 110/70; BP 132/78; BMI 27.0
== END 2022-05-12 23:59 ==
LOC: CR 08:00
PROVIDERS: PCP Family Medicine; Referring Provider Internal Medicine Cardiovascular Disease; Visit Provider Internal Medicine Cardiovascular Disease
DX: I10 Essential (primary) hypertension (principal); I25.2 Old myocardial infarction; Z95.5 Presence of coronary angioplasty implant and graft
CPT/HCPCS: 93798

== ENCOUNTER → 2022-06-02 | Outpatient (CLI) | payer MEDICARE, OTHER, SELFPAY ==
[2022-05-20 11:52] VITALS: BMI 26.9
[2022-06-02 12:26] LABS: Absolute Lymphocyte Count 1.85 X10^3/uL (0.83-4.51); Absolute Neutrophil Count 2.7 X10^3/uL (2.0-7.7); Basophil# 0.06 X10^3/uL; Basophil% 1.1 % (0-1); Eosinophil# 0.12 X10^3/uL; Eosinophils% 2.3 % (0-5); Hematocrit 45.1 % (40-54); Lymphocyte # 1.85 X10^3/ul (0.83-4.51); Lymphocyte % 35.3 % (19-41); Mean Corp Hgb Conc 33.3 g/dL (32-36); Mean Corpuscular Hgb 30.4 pg (27.0-32.0); Mean Corpuscular Volume 91.3 fL (80-94); Mean Platelet Vol. 9.9 fl (6.2-12.0); Monocyte# 0.48 X10^3/uL; Monocyte% 9.2 % (0-10); NRBC Flagged by Analyzer 0 % (0-5); Neutrophil # 2.71 X10^3/uL (2.7-7.7); Neutrophil % 51.7 % (47-70); Platelet Count 335 K/mm3 (150-450); RBC Distribution Width CV 13.4 % (11.6-14.6); RBC Distribution Width SD 45.6 fl (35.1-43.9); Red Blood Count 4.94 M/mm3 (4.6-6.2); White Blood Count 5.2 K/mm3 (4.4-11.0)
[2022-06-02 12:43] LABS: ALB/GLOB Ratio 1.2 RATIO (0.9-2.4); AST(SGOT) 26 U/L (15-37); Alanine Aminotransfer ALT/SGPT 32 U/L (16-61); Alkaline Phosphatase 50 U/L (45-117); Anion Gap 7 (5-15); BUN 17 mg/dL (7-18); BUN/Creat Ratio 18.9 RATIO (10-20); Calcium,Total 9.8 mg/dL (8.5-10.1); Chloride 95 mmol/L (98-107); EST Glomerular Filtration Rate 90 mL/min (>60); Est Glom Filt Rate - Afr Amer 108 mL/min (>60); Globulin 3.2 g/dL (2.2-4.2); Glucose 88 mg/dL (74-106); Potassium 4.6 mmol/L (3.5-5.1); Protein, Total 7.2 g/dL (6.4-8.2); Sodium Level 131 mmol/L (136-145)
== END | disposition home or self-care (01) ==
LOC: MFPLAB 10:22
PROVIDERS: PCP Family Medicine; Referring Provider Family Medicine; Visit Provider Family Medicine
DX: Z01.818 Encounter for other preprocedural examination (principal)
CPT/HCPCS: 36415; 80053; 85025

== ENCOUNTER 2022-06-08 08:00 | Outpatient (RCR) | payer MEDICARE, OTHER, SELFPAY ==
[2022-04-17 11:21] VITALS: BMI 27.0
[2022-05-13 00:33] VITALS: BP 110/70; BP 132/78
--- NOTE | 2022-05-20 11:43 | CR.ITP_ITS ---
Diagnosis Exercise - 60-day Assessment - Visit Date of Eval: 05/20/22 Session #:: 24 - Physician Prescribed Exercise Modalities: Treadmill, Airdyne, NuStep Frequency: 3x/week for 12 weeks [36 sessions] Intensity: 60-80% of age predicted maximum heart rate reserve Duration: 30 - 45 minutes Current METSs:: 6.0 Target Heart Rate:: 100-130 Current RPE:: 12 Maximum Excercise HR:: 95 Resting Blood Pressure: 138/76 - Stage I Hypertensive Maximum Exercise Blood Pressure: 130/82 EKG Type: NSR with isolated PACs Current Physical Activity or Exercising minutes: 40:08 - Outcomes & Goals Goals:: Verbalizes understanding of THR, RPE & goal METS by session 6, Documents in home exercise log/reports 30 min aerobic 5 day/wk by DC, Demonstrates accurate pulse taking by DC - Intervention & Plan Exercise Program Goals: Instruct on personal THR & RPE, Instruct on MET level & personal MET goal, Show patient to take own pulse /validate performance until accurate, Instruct on home exercise - 30-day Reassessments 30 day Reassessments:: Met - Physical Activity Home Exercise Physical Activity - Home Exercise: Safe Exercise, Warm-up, Self-monitoring, Cool-Down, Home Exercise > 30 min Daily, Sitting Time <3 hours/daily - Outcomes & Goals Outcomes/Goals: Demonstrates correct Warm-up/exercise Cool-Down (S3) if = 2.5 METs, Verbalizes symptoms of exercise intolerance by Session 3 (S3), Demonstrate safe equipment use (S3) & follows exercise prescrition (6) - Intervention & Plan Plan/Intervention: Instruct warm-up & cool-down if exercising at > 2 METs, Instruct on symptoms of exercise intolerance & actions to take, Instruct & monitor on saf, Assess intial functional capacity & safety risk - 30-day Reassessments 30 day Reassessments:: Met Nutrition - Initial Assessment Nutrition - 30-Day Assessment Nutrition - 60-Day Assessment - Program Goals Nutrition Program Goals: LDL <100 optimal. 100 - 129 Near optimal. 130 - 159 Borderline High. 160 - 189 High. Total Cholesterol <200 desirable. 200 - 239 Borderline High. >/= 240 High. HDL < 40 Low >/=60 High. Triglycerides <150 desirable. <199 optimal. VlDL 5 - 40. HgbA1C <7%. BMI <25 Patient has diagnosis of Hyperlipidemia (ICD E78)?: Yes - Visit Date of Assessment:: 05/20/22 Session #:: 24 - Cholesterol/Lipids (Other Core Measures) Triglycerides (mg/dL): 106 Total Cholesterol (mg/dL): 0 LDL Cholesterol (mg/dL): 97 HDL Cholesterol (mg/dL): 50 Determine presence & major risk factors that modify LDL goal: Hypertension or hypertensive medication, Family history of premature CHD in Male < 55 years: female <65 yearsFa, Age men > 45 years; women >/= 55 years Outcomes/Goals: Pt IDs own risk factors & lifestyle modifications by Session 10, Verbalizes symptoms of angina & response by session 3., Pt independently manages Intervention/Plan: Instruct on personal lipid levels & lipid goals/NCEP guidelines, Instruct on cholesterol Referral to dietitian:: Yes - Diabetes (Other Core Measures) Diabetes Type: Not Applicable - Weight Mgt (Other Care) Not Applicable: Yes Height: 6 ft Weight:: 199 lb BMI: 26.9 Diagnosis Overweight/Obesity BMI> 30% ICD-10 E66: Yes Diagnosis High BMI/Morbid Obesity BMI> 35% ICD-10 Z68: No Outcomes/Goals: Pt sets, maintains & shows weight loss goal & trend during rehab Intervention/Plan: Instruct on ideal BMI & set weight loss goal w/patient, Assist pt to ID & incorporate diet changes for weight loss by S9 30 day Reassessments:: Met - Healthy Eating Habits Will attend diet classes:: Yes Outcomes/Goals:: Consume diet rich in vegs,fruits,whole grain/high fiber,fish,lean meat, Limit sat/trans fats,cholesterol & added salts & sugars Intervention/Plan:: Assess current eating habits 30-day Reassessments:: Progressing - Education Gave educational materials for:: Healthy eating Nutrition - 90-Day Assessment Nutrition - Final Assessment Core - Initial Assessment Core - 30-Day Assessment Core - 60-Day Assessment - Visit Date of Eval: 05/20/22 Session #:: 24 - Medication Compliance Preventative Medication(s):: Aspirin, Clopidogrel/P2Y12 inhibit, Statin/lipid, Beta samanta H/O mental health issues: depression, anxiety, or addiction?: No Doesn?t believe in the benefits of treatment?: No Believes medications are unnecessary or harmful?: No Has a concern about medication side effects?: No Expresses concern over the cost of medications?: No Outcomes/Goals: Verbalizes medications,desired effect & common side effects @ DC, Pt self-reports following medication regimen, Keeps card in wallet w/medications listed by DC Interventions/plans: Instruct on medication effects & side effects, Review medication list w/patient every two weeks, Instruct importance of taking meds as ordered & assist problem solving - Tobacco Use Tobacco Use: Non-smoker - Hypertension Hypertension Diagnosis:: Hypertension ICD-10 I10 Resting Blood Pressure:: 138/76 [place] [employer] Hypertension Guidelines: [place] [employer] Hypertension Guidelines. Normal BP Less than 120/80. Elevated BP 120/80. Hypertension Stage 1: BP 130-139/80-89. Hypertesnion Stage 2: BP 140 or higher/90 or higher. Hypertension Crisis: BP higher than 180/120 Peak Exercise Blood Pressure:: 140/70 Outcomes/Goals: Able to verbalize/achieve optimal blood pressure <130/80, Incorporates diet changes & exercise for blood pressure control by DC Interventions/plan: Instruct on optimal blood pressure, hypertension & medications, Instruct on effects of sodium, alcohol, stress, exercise &hypertension 30 day Reassessments:: Met - Tobacco Cessation Referral Smoking Cessation Referral:: No Individual Education/Counseling:: No Education Schedule Given:: Yes - Patient actively participates in class Core - 90 Day Assessment Core - Final Assessment Psychosocial - Initial Assess Psychosocial - 30-Day Assess Psychosocial - 60-Day Assess - VIsit Date of Eval: 05/20/22 Session #:: 24 Not Applicable: Yes History of previous Mental disease:: No - Psychosocial Test Tool Used:: PHQ-9 Questionnaire phq-9 Severity: Severity. 1-4 Minimal Depression. 5-9 Mild Depression. 10-14 Moderate Depression. 15-19 Moderately Sever Depression. 20-27 Severe Depression. Rule: - Referral to Behavioral Health PS - Interventions: Yes Attend Stress Management Classes, No Referral to Behavioral Health if PHQ-9 score >9:, No Referral to [facility], No Referral to Physician if PHQ-9 if score is 5-9: - Outcomes/Goals: See list Psychosocial Outcomes/Goals:: ID's personal stressors & 2 strategies to manage stress by discharge - Intervention/Plan: See List Interventions/Plan:: Assess stressors,coping strategies & signs of derpression on admission - 30-day Reassessments: 30 day Reassessments:: Met Psychosocial - 90-Day Assess Psychosocial - Final Assessmen Patient Health Questionnaire 60-Day Re-eval Assessment 1. Little interest or pleasure in doing things: Several days 2. Feeling down, depressed, or hopeless: Not at all 3. Trouble falling or staying asleep, or sleeping too much: Several days 4. Feeling tired or having little energy: Several days 5. Poor appetite or overeating: Not at all 6. Feeling bad about yourself -- or that you are a failure or have let yourself or your family down: Not at all 7. Trouble concentrating on things, such as reading the newspaper or watching television: Not at all 8. Moving or speaking so slowly that other people could have noticed. Or the opp osite - being so fidgety or restless that you have been moving around a lot more than usual: Not at all 9. Thoughts that you would be better off , or of hurting yourself in some way: Not at all How difficult have these problems made it for you to do your work, take care of things at home, or get along with other people?: Not difficult at all Total Score: 3 Self-Efficacy 60-Day Re-eval Assessment We would like to know how confident you are in doing certain activities. Please select your confidence level for:: Select your confidence level for the following using the scale 1-10 where 1 is not at all confident and 10 is totally confident. Your score is the average of all 6 responses. Fatigue: How confident are you that you can keep the fatigue caused by your disease from interfering with the things you want to do? Select Number: 10 Physical Discomfort or Pain: How confident are you that you can keep the physical discomfort or pain of your disease from interfering with the things you want to do? Select Number: 10 Emotional Distress: How confident are you that you can keep the emotional distress caused by your disease from interfering with the things you want to do? Select Number: 9 Other Symptoms or Health Problems: How confident are you that you can keep other symptoms or health problems from interfering with the things you want to do? Select Number: 10 Different Tasks and Activities: How confident are you that you can do the different tasks and activities needed to manage your health condition so as to reduce your need to see a doctor? Select Number: 10 Medication: How confident are you that you can do things other than just taking medication to reduce how much your illness affects your everyday life? Select Number: 10 Total Score:: 9 Nutrition Survey
[2022-05-20 11:52] VITALS: BP 138/76; BP 140/70; BMI 26.9
== END 2022-06-09 23:59 ==
LOC: CR 08:00
PROVIDERS: PCP Family Medicine; Referring Provider Internal Medicine Cardiovascular Disease; Visit Provider Internal Medicine Cardiovascular Disease
DX: I21.19 ST elevation (STEMI) myocardial infarction involving other coronary artery of inferior wall (principal); I10 Essential (primary) hypertension; Z95.5 Presence of coronary angioplasty implant and graft
CPT/HCPCS: 93798

== ENCOUNTER 2022-06-17 08:00 | Outpatient (RCR) | payer MEDICARE, OTHER, SELFPAY ==
[2022-05-20 11:52] VITALS: BMI 26.9
[2022-06-10 00:23] VITALS: BP 138/76; BP 140/70
== END 2022-07-10 23:59 ==
LOC: CR 08:00
PROVIDERS: PCP Family Medicine; Referring Provider Internal Medicine Cardiovascular Disease; Visit Provider Internal Medicine Cardiovascular Disease
DX: I21.19 ST elevation (STEMI) myocardial infarction involving other coronary artery of inferior wall (principal); I10 Essential (primary) hypertension; Z95.5 Presence of coronary angioplasty implant and graft
CPT/HCPCS: 93798; 97802

== ENCOUNTER → 2022-07-13 | Outpatient (CLI) | payer MEDICARE, OTHER, SELFPAY ==
[2022-05-20 11:52] VITALS: BMI 26.9
[2022-07-13 16:00] LABS: Anion Gap 5 (5-15); BUN 25 mg/dL (7-18); BUN/Creat Ratio 28.5 RATIO (10-20); Calcium,Total 9.9 mg/dL (8.5-10.1); Chloride 103 mmol/L (98-107); Creatinine, Serum 0.88 mg/dL (0.70-1.30); EST Glomerular Filtration Rate 92 mL/min (>60); Est Glom Filt Rate - Afr Amer 111 mL/min (>60); Glucose 92 mg/dL (74-106); Potassium 4.2 mmol/L (3.5-5.1); Sodium Level 134 mmol/L (136-145)
== END | disposition home or self-care (01) ==
LOC: MFPLAB 11:05
PROVIDERS: PCP Family Medicine; Visit Provider Family Medicine
DX: E87.1 Hypo-osmolality and hyponatremia (principal)
CPT/HCPCS: 36415; 80048

== ENCOUNTER 2022-12-25 11:34 | Emergency (ER) | payer MEDICARE, OTHER, SELFPAY ==
[2022-05-20 11:52] VITALS: BMI 26.9
[2022-12-25 11:35] VITALS: BP 137/89; PULSE 72; RESP 16; TEMP 36.4; O2SAT 99; BMI 26.9
--- NOTE | 2022-12-25 12:59 | EKG12_ITS ---
Test Reason : DIZZINESS Blood Pressure : / mmHG Vent. Rate : 073 BPM Atrial Rate : 073 BPM P-R Int : 168 ms QRS Dur : 084 ms QT Int : 390 ms P-R-T Axes : 062 037 045 degrees QTc Int : 429 ms Normal sinus rhythm Normal ECG When compared with ECG of 13-JAN-2022 05:35, T wave inversion no longer evident in Inferior leads Confirmed by HARI HOOVER, ERICA ([id number]), industrial editor BROOKE DONAHUE ([id number]) on 12/30/2022 10:17:23 AM Referred By: GARFIELD Confirmed By:ERICA NORIEGA MD
[2022-12-25 13:15] LABS: Bacteria 0 SEEN /hpf (None Seen); Mucous, Urine 0 SEEN /hpf (<or=2+); Red Blood Cells-Urine 0 SEEN /hpf (0-5); Squamous Epithelial Cells - UA 0 SEEN /hpf (0-5); White Blood Cells 0 SEEN /hpf (0-5)
[2022-12-25 13:19] LABS: Absolute Neutrophil Count 4.6 X10^3/uL (2.0-7.7); Basophil# 0.07 X10^3/uL; Basophil% 0.9 % (0-1); Color, Urine Straw (Yellow); Eosinophil# 0.24 X10^3/uL; Eosinophils% 3.2 % (0-5); Glucose, Dipstick Normal (Normal); Hematocrit 46.7 % (40-54); Hemoglobin 15.9 g/dL (13.0-16.5); Ketone-Dipstick Negative (Negative); Leukocyte Esterase-Dipstick Negative /ul (Negative); Lymphocyte % 26.3 % (19-41); Mean Corpuscular Hgb 30.1 pg (27.0-32.0); Mean Corpuscular Volume 88.4 fL (80-94); Mean Platelet Vol. 9.9 fl (6.2-12.0); Monocyte# 0.71 X10^3/uL; Monocyte% 9.3 % (0-10); NRBC Flagged by Analyzer 0 % (0-5); Neutrophil # 4.56 X10^3/uL (2.7-7.7); Nitrite-Dipstick Negative (Negative); Occult Blood-Urine 10 /ul (Negative); Platelet Count 314 K/mm3 (150-450); Protein-Dipstick Negative (Negative); RBC Distribution Width CV 13.2 % (11.6-14.6); RBC Distribution Width SD 43.3 fl (35.1-43.9); Red Blood Count 5.28 M/mm3 (4.6-6.2); Urine Bilirubin Dipstick Negative (Negative); Urine Clarity Clear (Clear); Urine Urobilinogen Normal (Normal); White Blood Count 7.6 K/mm3 (4.4-11.0)
[2022-12-25 13:24] VITALS: BP 133/93; BP 140/88; BP 154/98; PULSE 70; PULSE 72; PULSE 73
[2022-12-25] MEDS: LORazepam 0.5 MG Tablet PO (13:35)
[2022-12-25] MEDS: 0.9% Normal Saline (1000mL) 1,000 ML 1000 ML IV (13:35)
[2022-12-25 13:39] LABS: Anion Gap 5 (5-15); BUN 14 mg/dL (7-18); BUN/Creat Ratio 15.8 RATIO (10-20); Calcium,Total 9.2 mg/dL (8.5-10.1); Chloride 96 mmol/L (98-107); Creatinine, Serum 0.89 mg/dL (0.70-1.30); EST Glomerular Filtration Rate 91 mL/min (>60); Est Glom Filt Rate - Afr Amer 110 mL/min (>60); Estimated Creatinine Clearance 87.19 ml/min; Glucose 98 mg/dL (74-106); Potassium 3.8 mmol/L (3.5-5.1); Sodium Level 130 mmol/L (136-145); Troponin-I HS 4 pg/mL (3.0-78.0)
--- NOTE | 2022-12-25 14:31 | EX.ED.DYSGE1 ---
HPI History of Present Illness Chief Complaint: Dizziness Narrative Narrative: Patient is a 67 year old male with history of coronary artery disease (received a stent last year), hypertension, hyperlipidemia and spinal stenosis presenting from home for dizziness. Patient describes as a lightheaded sensation. I states that the ground for the past 2 days. He states on Wednesday one of her start it was mild he thought maybe he was dehydrated. He drank water and felt better. Yesterday had a similar course but it lasted longer. Patient notes he is quite active and walks 2 [address] [employer] [address] 5 days a week. He did his walk both Wednesday and . Today when he woke up he was headed without any exertion. He denies any actual syncope. He states he has had vertigo in the past and this was very different from vertigo. Denies any chest pain or palpitations. Denies any shortness of breath or difficulty breathing. Denies any swelling of his legs. Denies any nausea or vomiting. Denies any fever or chills. Notes that he is very anxious right now. States that sometimes he takes half milligram of Xanax at home for his anxiety but did not have any today because he was not feeling anxious until he came to the emergency room. He also tells me that he is on a lot of medicines that make him dehydrated given dry mouth. He is wondering if that is what this is. [place] No other complaints or concerns at this time. [facility] Medical History Anxiety Essential (primary) hypertension Hypertension Nicotine dependence Prostate enlargement Home Medications alprazolam 0.5 mg tablet 0.5 mg PO QHS PRN PRN Anxiety 08/22/15 [History Last Taken 12/16/21 12:00] aspirin 81 mg tablet,delayed release 81 mg PO DAILYCM #30 tabs 01/13/22 [Rx Last Taken Unknown] carvedilol 6.25 mg tablet 6.25 mg PO BID #60 tabs 02/04/22 [Rx Last Taken Unknown] clopidogrel 75 mg tablet 75 mg PO DAILY #90 tabs 03/09/22 [Rx Last Taken Unknown] lisinopril 5 mg tablet 5 mg PO DAILY #90 tabs 03/09/22 [Rx Last Taken Unknown] rosuvastatin 10 mg tablet 10 mg PO DAILY stop Atorvastatin #90 tabs 03/09/22 [Rx Last Taken Unknown] hydrochlorothiazide 25 mg tablet 25 mg PO DAILY dose was increased from 12.5 to 25 #90 tabs 04/21/22 [Rx Last Taken Unknown] mirtazapine 15 mg tablet 15 mg PO DAILY 04/28/22 [History Last Taken Unknown] linaclotide 72 mcg capsule (Linzess) 72 mcg PO DAILY PRN Check with primary doctor 10/21/22 [History Last Taken Unknown] Allergy/AdvReac Type Severity Reaction Status Date / Time cortisone Allergy Nausea Verified 12/25/22 11:35 atorvastatin AdvReac Intermediate Myalgias Verified 12/25/22 11:35 oxycodone AdvReac Intermediate Upset Verified 12/25/22 11:35 Stomach buspirone HCl [From BuSpar] AdvReac Other Verified 12/25/22 11:35 hydrocodone bitartrate AdvReac Other Verified 12/25/22 11:35 [From [place]] Family History Other Cancer Heart disease Hypertension Myocardial infarction Surgical History H/O right coronary artery stent placement (~01/11/22) Hx of spinal fusion (~07/2022) Previous back surgery ST elevation myocardial infarction (STEMI) of inferior wall (~01/11/22) Social History Smoking Status: Never smoker alcohol intake: current alcohol intake frequency: a few times a month substance use type: marijuana and other details: Denies cocaine caffeine: Yes Type: coffee Number of servings: 1 ROS ROS ED Constitutional Constitutional ED: Reports other Details: Lightheaded ; Denies chills or fever(s) Eyes Eyes: Denies blurry vision or change in vision ENT ENT ED: Denies sore throat Cardiovascular Cardiovascular: Denies chest pain Respiratory/Chest Respiratory/Chest: Denies cough or dyspnea Gastrointestinal Gastrointestinal: Denies abdominal pain, nausea or vomiting Musculoskeletal Musculoskeletal: Denies arthralgias or myalgias Integumentary Denies rash Neurologic Neurologic: Denies headache(s), paresthesias or weakness Psychiatric Psychiatric: Reports anxiety Hematologic/Lymphatic Hematologic/Lymphatic: Denies easy bleeding or easy bruising EXAM Physical Exam Const Vital Signs: 12/25/22 11:35 12/25/22 11:44 12/25/22 13:24 Temperature 97.6 F L Temperature Source Temporal Pulse Rate 72 Pulse Rate [Lying] 73 Pulse Rate [Sitting (for 1 minute prior to obtaining)] 72 Pulse Rate [Standing (for 1 minute prior to obtaining)] 70 Respiratory Rate 16 Respiratory Effort Normal Respiratory Pattern Normal Blood Pressure 137/89 H Blood Pressure [Lying] 133/93 H Blood Pressure [Sitting (for 1 minute prior to obtaining)] 154/98 H Blood Pressure [Standing (for 1 minute prior to obtaining)] 140/88 H Blood Pressure Mean 105 Blood Pressure Mean [Lying] 106 Blood Pressure Mean [Sitting (for 1 minute prior to obtaining)] 116 Blood Pressure Mean [Standing (for 1 minute prior to obtaining)] 105 Pulse Ox 99 Oxygen Delivery Method Room Air 12/25/22 15:06 Temperature Temperature Source Pulse Rate 79 Pulse Rate [Lying] Pulse Rate [Sitting (for 1 minute prior to obtaining)] Pulse Rate [Standing (for 1 minute prior to obtaining)] Respiratory Rate 19 H Respiratory Effort Respiratory Pattern Blood Pressure 122/98 H Blood Pressure [Lying] Blood Pressure [Sitting (for 1 minute prior to obtaining)] Blood Pressure [Standing (for 1 minute prior to obtaining)] Blood Pressure Mean 106 Blood Pressure Mean [Lying] Blood Pressure Mean [Sitting (for 1 minute prior to obtaining)] Blood Pressure Mean [Standing (for 1 minute prior to obtaining)] Pulse Ox 98 Oxygen Delivery Method Room Air Positive well nourished and well developed General Appearance ED: well developed and NAD HEENT Reports moist mucous membranes Eyes PERRL and EOMs intact bilaterally Neck supple Chest Wall inspection of chest normal and palpation of chest normal Resp normal respiratory effort and clear to auscultation bilaterally Cardio regular rate, regular rhythm and no murmurs GI normal to inspection, nondistended, normoactive bowel sounds and non-tender Extremity normal to inspection General Extremety ED: Negative for edema General Extremity: Negative for edema Neuro oriented x3 Sensorium / Orientation: alert Psych mental status grossly normal Mood & Affect: anxious Skin no rashes or lesions noted and no wounds MDM MDM MDM Narrative Medical decision making narrative: Patient is evaluated for lightheadedness. Vital signs are normal. EKG is normal sinus rhythm with no arrhythmia. Patient is well-appearing. At this does not seem to be of vertiginous process. He has a normal neurologic exam. I do not think he requires neuroimaging. Metabolic and cardiac work-up is performed. Work-up largely normal. His sodium is mildly low at 130 however patient reports a history of mild hyponatremia and states he just drinks a lot of water. He has no signs of MUSHTAQ and has a normal high-sensitivity troponin. His CBC is normal. Urinalysis is not consistent with infection. There are no red blood cells seen. He is symptomatic during orthostatic vital signs and while he is not hypotensive he does have a drop in his blood pressure with no change in heart rate when he goes from sitting to standing. He is given a liter of IV fluid. On repeat evaluation he states he is feeling better. Counseled that at this time I do not think there is any signs of impending heart attack and I think it safe for him to go home to follow-up outpatient. 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 He verbalizes good understand this plan. Given return precautions. Discharged home in stable and improved condition. Was given 1 dose of 0.5 mg oral Ativan for anxiety in the ER. Lab Data Attestation: I reviewed the patient's lab results. Labs: Laboratory Results - last 24 hr 12/25/22 12:35 WBC 7.6 RBC 5.28 Hgb 15.9 Hct 46.7 MCV 88.4 MCH 30.1 MCHC 34.0 RDW Std Deviation 43.3 RDW Coeff of Kelsy 13.2 Plt Count 314 MPV 9.9 Immature Gran % (Auto) 0.300 Neut % (Auto) 60.0 Lymph % (Auto) 26.3 [place] % (Auto) 9.3 Eos % (Auto) 3.2 Baso % (Auto) 0.9 Absolute Neuts (auto) 4.6 Absolute Lymphs (auto) 2.00 Nucleated RBC % 0 Sodium 130 L Potassium 3.8 Chloride 96 L Carbon Dioxide 29.0 Anion Gap 5 BUN 14 Creatinine 0.89 Estim Creat Clear Calc 87.19 Est GFR (MDRD) Af Amer 110 Est GFR (MDRD) Non-Af 91 BUN/Creatinine Ratio 15.8 Glucose 98 Calcium 9.2 Troponin I High Sens 4 Urine Color Straw Urine Clarity Clear Urine pH 7.0 Ur Specific [place] 1.010 Urine Protein Negative Urine Glucose (UA) Normal Urine Ketones Negative Urine Occult Blood 10 H Urine Nitrite Negative Urine Bilirubin Negative Urine Urobilinogen Normal Ur Leukocyte Esterase Negative Urine RBC 0 SEEN Urine WBC 0 SEEN Ur Squamous Epith Cells 0 SEEN Urine Bacteria 0 SEEN Urine Mucus 0 SEEN Radiography Chest X-Ray - ED: 2 View, Read by ED Physician, Read by Radiologist and No Acute Disease Diagnostic Testing: Clinical Impression(s) from Imaging Studies Chest X-Ray 12/25/22 14:45 IMPRESSION: Stable examination. No acute abnormality is seen. Electronically Signed: Juan Francisco Aguila MD at 15:02 EDT , Rhythm Strip Rhythm Strip: Sinus Rhythm Rate: 73 Ectopy: None EKG Initial EKG: Attestation: I personally reviewed and interpreted this EKG as follows: Interpretation: Sinus Rhythm Comments: Normal sinus rhythm at a rate of 73 bpm Normal axis Normal intervals Normal ST segments Discharge Plan Triage Chief Complaint: Dizziness ED Provider: Deepthi Adkins Dx/Rx/DC Orders Clinical Impression: Lightheaded, Chronic hyponatremia Prescriptions: No Action carvedilol 6.25 mg tablet 6.25 mg PO BID Qty: 60 11RF Rx Instructions: must administer with a meal/food mirtazapine 15 mg tablet 15 mg PO DAILY alprazolam 0.5 MG tablet 0.5 mg PO QHS PRN PRN (Reason: Anxiety) aspirin 81 mg Tablet,Delayed Release (Dr/Ec) 81 mg PO DAILYCM Qty: 30 1RF Linzess 72 mcg capsule 72 mcg PO DAILY PRN (Reason: Check with primary doctor) lisinopril 5 mg tablet 5 mg PO DAILY Qty: 90 3RF clopidogrel 75 mg tablet 75 mg PO DAILY Qty: 90 3RF rosuvastatin 10 mg tablet 10 mg PO DAILY Qty: 90 3RF hydrochlorothiazide 25 mg tablet 25 mg PO DAILY Qty: 90 3RF Primary Care Provider: Hortensia Carr Referrals: Hortensia Carr MD [Primary Care Provider] - Activity Restrictions/Additional Instructions: Your heart work-up was normal. Your sodium was mildly low at 130 today. The exact cause of her lightheadedness is not clear however I suspect it is more associated with your volume status. Make sure you continue to drink enough fluids and add in Gatorade to do not lower your sodium further. 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 Return to the ER if you develop chest pain, worsening lightheadedness/feeling like going to pass out or any further concerns. Disposition Disposition: Home, Self Care
--- NOTE | 2022-12-25 14:45 | RAD_ITS ---
STUDY: X-RAY CHEST REASON FOR EXAM: Male, 67 years old. Lightheadedness and dizziness. TECHNIQUE: PA and lateral views of the chest. COMPARISON: Comparison is made with prior study January 11, 2022. FINDINGS: EKG electrodes are seen. The lungs are clear and expanded. There is no demonstrated pleural abnormality. Normal size heart. Normal mediastinum and stacy. Normal visualized pulmonary arteries. Normal visualized aortic arch and descending thoracic aorta. There are degenerative changes of the visualized thoracic spine. There is degenerative osteoarthritis of the bilateral shoulders. There is no demonstrated abnormality of the visualized soft tissue structures of the upper abdomen. RAD/Chest PA and Lateral IMPRESSION: Stable examination. No acute abnormality is seen. Electronically Signed: Juan Francisco Aguila MD at 15:02 EDT ,
[2022-12-25 15:06] VITALS: BP 122/98; PULSE 79; RESP 19; O2SAT 98
[2022-12-25 15:44] VITALS: BP 147/111; PULSE 107
== END 2022-12-25 15:44 | disposition home or self-care (01) ==
PROVIDERS: Emergency Provider Emergency Medicine; PCP Family Medicine; Visit Provider Emergency Medicine
DX: R42 Dizziness and giddiness (principal); E87.1 Hypo-osmolality and hyponatremia; F41.9 Anxiety disorder, unspecified; I10 Essential (primary) hypertension; I25.10 Atherosclerotic heart disease of native coronary artery without angina pectoris; E78.5 Hyperlipidemia, unspecified; Z95.5 Presence of coronary angioplasty implant and graft
CPT/HCPCS: 71046; 80048; 81001; 84484; 85025; 93005; 96360; 99283; J7030; A4216

== ENCOUNTER → 2023-01-07 | Outpatient (CLI) | payer MEDICARE, OTHER, SELFPAY ==
[2022-05-20 11:52] VITALS: BMI 26.9
[2023-01-07 11:18] LABS: Absolute Lymphocyte Count 2.08 X10^3/uL (0.83-4.51); Basophil# 0.06 X10^3/uL; Eosinophil# 0.22 X10^3/uL; Eosinophils% 3.8 % (0-5); Hematocrit 46.7 % (40-54); Hemoglobin 15.9 g/dL (13.0-16.5); Lymphocyte # 2.08 X10^3/ul (0.83-4.51); Lymphocyte % 35.7 % (19-41); Mean Corpuscular Hgb 29.9 pg (27.0-32.0); Mean Corpuscular Volume 87.8 fL (80-94); Mean Platelet Vol. 9.7 fl (6.2-12.0); Monocyte# 0.48 X10^3/uL; Monocyte% 8.2 % (0-10); NRBC Flagged by Analyzer 0 % (0-5); Neutrophil # 2.98 X10^3/uL (2.7-7.7); Neutrophil % 51.1 % (47-70); Platelet Count 326 K/mm3 (150-450); RBC Distribution Width CV 13.4 % (11.6-14.6); RBC Distribution Width SD 43.1 fl (35.1-43.9); Red Blood Count 5.32 M/mm3 (4.6-6.2); White Blood Count 5.8 K/mm3 (4.4-11.0)
[2023-01-07 12:06] LABS: Anion Gap 6 (5-15); BUN 14 mg/dL (7-18); BUN/Creat Ratio 14.8 RATIO (10-20); Chloride 98 mmol/L (98-107); Creatinine, Serum 0.95 mg/dL (0.70-1.30); EST Glomerular Filtration Rate 84 mL/min (>60); Est Glom Filt Rate - Afr Amer 102 mL/min (>60); Glucose 137 mg/dL (74-106); Sodium Level 129 mmol/L (136-145)
[2023-01-07 12:08] LABS: AST(SGOT) 22 U/L (15-37); Alanine Aminotransfer ALT/SGPT 31 U/L (16-61); Albumin, Serum 3.9 g/dL (3.2-5.0); Alkaline Phosphatase 66 U/L (45-117); Anion Gap 6 (5-15); BUN 14 mg/dL (7-18); Chloride 97 mmol/L (98-107); EST Glomerular Filtration Rate 79 mL/min (>60); Est Glom Filt Rate - Afr Amer 96 mL/min (>60); Globulin 3.8 g/dL (2.2-4.2); Glucose 140 mg/dL (74-106); Protein, Total 7.7 g/dL (6.4-8.2); Sodium Level 128 mmol/L (136-145)
[2023-01-07 18:02] LABS: PSA,Total - Annual Screen 4.32 ng/mL (0.00-4.00)
== END | disposition home or self-care (01) ==
LOC: LAB 10:34
PROVIDERS: PCP Family Medicine; Referring Provider Nurse Practitioner Family; Visit Provider Nurse Practitioner Family
DX: Z01.818 Encounter for other preprocedural examination (principal); R42 Dizziness and giddiness; E87.1 Hypo-osmolality and hyponatremia; I10 Essential (primary) hypertension; Z12.5 Encounter for screening for malignant neoplasm of prostate
CPT/HCPCS: 36415; 80048; 80053; 84153; 85025; G0103

== ENCOUNTER → 2023-01-07 | Outpatient (CLI) | payer MEDICARE, OTHER, SELFPAY ==
[2022-05-20 11:52] VITALS: BMI 26.9
--- NOTE | 2023-01-07 10:50 | CDU_ITS ---
Reason For Study: DIZZINESS, CAD Rt. Velocities/BP Lt. Velocities/BP Prox CCA 68.6/12.8 cm/sec. Prox CCA 61.0/15.6 cm/sec. Mid CCA 81.8/18.5 cm/sec. Mid CCA 43.5/11.3 cm/sec. Dist CCA 65.8/13.8 cm/sec. Dist CCA 49.6/12.1 cm/sec. Prox ICA 50.2/13.4 cm/sec. Prox ICA 44.4/13.0 cm/sec. Mid ICA 40.5/15.0 cm/sec. Mid ICA 55.7/16.5 cm/sec. Dist ICA 46.2/14.1 cm/sec. Dist ICA 38.3/15.6 cm/sec. Rt. ICA/CCA = 50.2/81.8=0.6. Lt. ICA/CCA = 55.7/43.5=1.3. Prox ECA 96.5/15.5 cm/sec. Prox ECA 73.2/11.3 cm/sec. Rt. Vert. 27.7/7.0 cm/sec. Lt. Vert. 46.2/17.4 cm/sec. Right Extracranial There is intimal thickening but no significant atherosclerotic plaque noted in the right common carotid artery. There is homogeneous, smooth atherosclerotic plaque noted in the right internal carotid artery. There is intimal thickening but no significant atherosclerotic plaque noted in the right external carotid artery. Antegrade flow is noted in the right vertebral artery. Left Extracranial There is no significant atherosclerotic plaque noted in the left common carotid artery. There is heterogeneous, smooth atherosclerotic plaque noted in the left internal carotid artery. There is intimal thickening but no significant atherosclerotic plaque noted in the left external carotid artery. Antegrade flow is noted in the left vertebral artery. Procedure Carotid Duplex [id number]. This is a Carotid Duplex examination using B-mode, color flow and specral Doppler. Exam performed in department. VL/Carotid Duplex Ultrasound Interpretation Summary Mild (<50%) stenosis right extracranial internal carotid. Mild (<50%) stenosis left extracranial internal carotid. Patent and antegrade vertebrals bilaterally. Ordering Physician: Javier Pizarro Referring Physician: Hortensia Carr Performed By: Candida Martinez RDCS, RVT
== END | disposition home or self-care (01) ==
LOC: CVS 10:49
PROVIDERS: PCP Family Medicine; Referring Provider Nurse Practitioner Family; Visit Provider Nurse Practitioner Family
DX: R42 Dizziness and giddiness (principal); I25.10 Atherosclerotic heart disease of native coronary artery without angina pectoris; I10 Essential (primary) hypertension; Z95.5 Presence of coronary angioplasty implant and graft; R00.2 Palpitations
CPT/HCPCS: 93225; 93226; 93880

== ENCOUNTER 2023-01-11 05:07 | Observation (INO) | payer MEDICARE, OTHER, SELFPAY ==
[2022-05-20 11:52] VITALS: BMI 26.9
[2023-01-11] VITALS (11 sets, daily range): BP systolic 95–157; BP diastolic 63–98; PULSE 59–77; RESP 14–18; TEMP 35.9–37; O2SAT 92–100; BMI 26.4
--- NOTE | 2023-01-11 05:21 | ED.VIS.CHEST ---
HPI History of Present Illness Chief Complaint: Chest Pain [facility] Medical History Anxiety Essential (primary) hypertension Hypertension Nicotine dependence Prostate enlargement Home Medications alprazolam 0.5 mg tablet 0.5 mg PO QHS PRN PRN Anxiety 08/22/15 [History Last Taken 12/16/21 12:00] aspirin 81 mg tablet,delayed release 81 mg PO DAILYCM #30 tabs 01/13/22 [Rx Last Taken Unknown] carvedilol 6.25 mg tablet 6.25 mg PO BID #60 tabs 02/04/22 [Rx Last Taken Unknown] clopidogrel 75 mg tablet 75 mg PO DAILY #90 tabs 03/09/22 [Rx Last Taken Unknown] rosuvastatin 10 mg tablet 10 mg PO DAILY stop Atorvastatin #90 tabs 03/09/22 [Rx Last Taken Unknown] mirtazapine 15 mg tablet 15 mg PO DAILY 04/28/22 [History Last Taken Unknown] linaclotide 72 mcg capsule (Linzess) 72 mcg PO DAILY PRN Check with primary doctor 10/21/22 [History Last Taken Unknown] hydrochlorothiazide 25 mg tablet 12.5 mg (1/2 x 25 mg) PO DAILY #90 tabs 12/31/22 [Rx Last Taken Unknown] lisinopril 5 mg tablet 5 mg PO BID #90 tabs 12/31/22 [Rx Last Taken Unknown] Allergy/AdvReac Type Severity Reaction Status Date / Time cortisone Allergy Nausea Verified 01/11/23 05:11 atorvastatin AdvReac Intermediate Myalgias Verified 12/25/22 11:35 oxycodone AdvReac Intermediate Upset Verified 12/25/22 11:35 Stomach buspirone HCl [From BuSpar] AdvReac Other Verified 01/11/23 05:11 hydrocodone bitartrate AdvReac Other Verified 12/25/22 11:35 [From [place]] Family History Other Cancer Heart disease Hypertension Myocardial infarction Surgical History H/O right coronary artery stent placement (~01/11/22) Hx of spinal fusion (~07/2022) Previous back surgery ST elevation myocardial infarction (STEMI) of inferior wall (~01/11/22) Social History Smoking Status: Never smoker alcohol intake: current alcohol intake frequency: a few times a month substance use type: marijuana and other details: Denies cocaine caffeine: Yes Type: coffee Number of servings: 1 EXAM Physical Exam Const Vital Signs: 01/11/23 05:08 01/11/23 05:15 01/11/23 05:23 Temperature 96.6 F L Temperature Source Temporal Pulse Rate 77 Respiratory Rate 18 Respiratory Effort Normal Non-Labored Blood Pressure 157/98 H Blood Pressure Mean 117 Pulse Ox 99 Oxygen Delivery Method Room Air Room Air Heart Score History: Moderately Suspicious ECG: Normal Age: >/= 65 years Risk Factors: >/= 3 Risk Factors or History of CAD Troponin: </= Normal Limit Score: 5 MDM MDM MDM Narrative Medical decision making narrative: For HISTORY OF PRESENT ILLNESS: 67-year-old male here with chest pain started proxy 1 hour ago. It is midsternal, dull reminds him of prior issues he had with his heart. Denies any vomiting. Notes nausea. It is not exertional. Is not pleuritic. Denies any recent illnesses such as cough or fever. Denies any lower extremity edema. Denies any syncope. The patient denies recent surgery in the last 4 weeks or immobilization in the last 3 days, denies previous diagnosis of DVT or PE, hemoptysis, unilateral leg swelling or malignancy with treatment the last 6 months or palliative. No estrogen use noted. Patient denies sudden onset of pain, no tearing sensation, no migratory symptoms, no new numbness, weakness or loss of sensation. Patient denies family history or personal history of Connective tissue disorders (Marfan's Syndrome, Basilio Danlos etc) REVIEW OF SYSTEMS: Pertinent positives: Chest pain Pertinent negatives: Shortness of breath, focal weakness, abdominal pain, cough, fever, syncope PHYSICAL EXAM: Nursing triage notes reviewed, Vital signs reviewed Constitutional: please see mdm HENT: MMM Eyes: Pupils equal round and reactive to light, Extraocular muscles intact Neck: No stridor, no JVD, full neck ROM Lungs: Clear to auscultation, No wheezing or rales. No increased work of breathing, no conversational dyspnea, no accessory muscle use, no nasal flaring. No respiratory distress noted Heart: Regular rate and rhythm, No murmurs, No rubs and No gallops, 2+ distal pulses (radial, femoral, posterior tibial) in all extremities Abdomen: Soft, there is no tenderness, rigidity, rebound or guarding, no obvious peritoneal signs, no palpable pulsatile abdominal masses, no auscultated abdominal bruit : No CVAT Extremities: No edema Neuro: No focal neurological deficits, cranial nerves II through XII intact, 5/5 strength in all extremities. Intact sensation to light touch in all extremities, 2+ reflexes bilateral patella tendons. Normal gait. No ataxia. Skin: No rash or lesions noted MEDICAL DECISION MAKING: Chief Complaint: Chest pain External records reviewed: Last stress test noted in the chart was from April 2022 which showed no evidence of perfusion defects, ejection fraction was 74% Factors affecting care: CAD status post stent, hypertension, hyperlipidemia, Social determinants of health: Positive marijuana use History obtained from others: none Consults: none MDM Narrative: Patient was hemodynamically stable, afebrile, nontoxic-appearing. No focal cardiopulmonary abnormalities on exam. No pulse deficits. No stigmata of VTE. I considered the following differential diagnosis: ACS, arrhythmia, anemia, PE, aortic dissection, pneumothorax, pneumonia I considered pulmonary embolism however thought a CTA of the chest and D-dimer were not indicated at this time secondary to low risk Wells score I also considered aortic dissection splinter etiology however thought this was less likely given the fact that the patient had no focal neurologic deficits, no pulse deficits, no historical factors such as Basilio-Danlos or Marfan syndrome with predispose him to high risk of this diagnosis. I Gave aspirin for mortality benefit. I obtained a broad lab and imaging work-up to further elucidate the etiology of the patient's complaints ALL IMAGES (IF OBTAINED) HAVE BEEN PERSONALLY REVIEWED AND INTERPRETED BY MYSELF. EKG with normal sinus rhythm, normal axis, normal intervals, no STEMI CBC without leukocytosis, severe anemia, no thrombocytopenia. BMP with mild hyponatremia, no electrolyte abnormalities otherwise, no anion gap, no MUSHTAQ Troponin is negative, no evidence of myocardial ischemia BMP without evidence of significant electrolyte abnormalities, no anion gap, no acute kidney injury. I have personally reviewed the patient's chest x-ray. Chest x-ray is unremarkable for pulmonary edema, pneumothorax, pneumonia or focal cardiopulmonary abnormality. No clear life-limiting process identified initial evaluation however the patient heart score is elevated as such she is elevated risk of Mace. Given elevated risk admitted the patient for telemetry monitoring and confirmatory testing. Discussed with hospitalist. The patient and/or family, caregivers express understanding. The patient and/or family, caregivers agrees with the plan. Shared decision making: I will have a discussion with the patient and or visitors regarding risk/benefits of further testing or admission. They will be made aware of of the risk/benefits inherent in this decision they will be given the opportunity to voice understanding. Total critical care time today provided was at least 0 [] minutes. This excludes separately billable procedures. Critical care time (if documented) is secondary to the patient having high probability of clinically significant/life threatening deterioration in the patient's condition which required my urgent intervention. Impression: 1. Chest pain 2. Elevated blood pressure 3. History of CAD 4. Elevated Heart score Dispo: Admit Lab Data Labs: Laboratory Results - last 24 hr 01/11/23 01/11/23 01/11/23 05:15 05:15 05:15 WBC 6.5 RBC 5.55 Hgb 16.5 Hct 48.7 MCV 87.7 MCH 29.7 MCHC 33.9 RDW Std Deviation 43.3 RDW Coeff of Kelsy 13.5 Plt Count 331 MPV 9.5 Immature Gran % (Auto) 0.300 Neut % (Auto) 44.1 L Lymph % (Auto) 41.2 H [place] % (Auto) 8.7 Eos % (Auto) 4.3 Baso % (Auto) 1.4 H Absolute Neuts (auto) 2.9 Absolute Lymphs (auto) 2.69 Nucleated RBC % 0 Sodium Cancelled 133 L Potassium Cancelled 4.1 Chloride Cancelled Carbon Dioxide Anion Gap BUN Creatinine Estim Creat Clear Calc Est GFR (MDRD) Af Amer Est GFR (MDRD) Non-Af BUN/Creatinine Ratio Glucose Calcium Troponin I High Sens B-Natriuretic Peptide 01/11/23 01/11/23 01/11/23 05:15 05:15 05:15 WBC RBC Hgb Hct MCV MCH MCHC RDW Std Deviation RDW Coeff of Kelsy Plt Count MPV Immature Gran % (Auto) Neut % (Auto) Lymph % (Auto) [place] % (Auto) Eos % (Auto) Baso % (Auto) Absolute Neuts (auto) Absolute Lymphs (auto) Nucleated RBC % Sodium Potassium Chloride 103 Carbon Dioxide Cancelled 25.0 Anion Gap Cancelled 5 BUN Cancelled Creatinine Estim Creat Clear Calc Est GFR (MDRD) Af Amer Est GFR (MDRD) Non-Af BUN/Creatinine Ratio Glucose Calcium Troponin I High Sens B-Natriuretic Peptide 01/11/23 01/11/23 01/11/23 05:15 05:15 05:15 WBC RBC Hgb Hct MCV MCH MCHC RDW Std Deviation RDW Coeff of Kelsy Plt Count MPV Immature Gran % (Auto) Neut % (Auto) Lymph % (Auto) [place] % (Auto) Eos % (Auto) Baso % (Auto) Absolute Neuts (auto) Absolute Lymphs (auto) Nucleated RBC % Sodium Potassium Chloride Carbon Dioxide Anion Gap BUN 15 Creatinine Cancelled 0.88 Estim Creat Clear Calc Cancelled 88.18 Est GFR (MDRD) Af Amer Cancelled Est GFR (MDRD) Non-Af BUN/Creatinine Ratio Glucose Calcium Troponin I High Sens B-Natriuretic Peptide 01/11/23 01/11/23 01/11/23 05:15 05:15 05:15 WBC RBC Hgb Hct MCV MCH MCHC RDW Std Deviation RDW Coeff of Kelsy Plt Count MPV Immature Gran % (Auto) Neut % (Auto) Lymph % (Auto) [place] % (Auto) Eos % (Auto) Baso % (Auto) Absolute Neuts (auto) Absolute Lymphs (auto) Nucleated RBC % Sodium Potassium Chloride Carbon Dioxide Anion Gap BUN Creatinine Estim Creat Clear Calc Est GFR (MDRD) Af Amer 111 Est GFR (MDRD) Non-Af Cancelled 92 BUN/Creatinine Ratio Cancelled 17.1 Glucose Cancelled Calcium Troponin I High Sens B-Natriuretic Peptide 01/11/23 01/11/23 01/11/23 05:15 05:15 05:15 WBC RBC Hgb Hct MCV MCH MCHC RDW Std Deviation RDW Coeff of Kelsy Plt Count MPV Immature Gran % (Auto) Neut % (Auto) Lymph % (Auto) [place] % (Auto) Eos % (Auto) Baso % (Auto) Absolute Neuts (auto) Absolute Lymphs (auto) Nucleated RBC % Sodium Potassium Chloride Carbon Dioxide Anion Gap BUN Creatinine Estim Creat Clear Calc Est GFR (MDRD) Af Amer Est GFR (MDRD) Non-Af BUN/Creatinine Ratio Glucose 106 Calcium Cancelled 8.7 Troponin I High Sens Cancelled 5 B-Natriuretic Peptide 17.0 Radiography Diagnostic Testing: Clinical Impression(s) from Imaging Studies Chest X-Ray 01/11/23 05:23 IMPRESSION: No significant interval change. No radiographic evidence of acute cardiopulmonary disease. Electronically Signed: Sina Goncalves MD at 5:49 EDT , Discharge Plan Triage Chief Complaint: Chest Pain ED Provider: Ronnie Villegas Dx/Rx/DC Orders Prescriptions: No Action carvedilol 6.25 mg tablet 6.25 mg PO BID Qty: 60 11RF Rx Instructions: must administer with a meal/food mirtazapine 15 mg tablet 15 mg PO DAILY alprazolam 0.5 MG tablet 0.5 mg PO QHS PRN PRN (Reason: Anxiety) aspirin 81 mg Tablet,Delayed Release (Dr/Ec) 81 mg PO DAILYCM Qty: 30 1RF Linzess 72 mcg capsule 72 mcg PO DAILY PRN (Reason: Check with primary doctor) clopidogrel 75 mg tablet 75 mg PO DAILY Qty: 90 3RF rosuvastatin 10 mg tablet 10 mg PO DAILY Qty: 90 3RF hydrochlorothiazide 25 mg tablet 12.5 mg PO DAILY Qty: 90 3RF lisinopril 5 mg tablet 5 mg PO BID Qty: 90 3RF Primary Care Provider: Hortensia Carr Referrals: Hortensia Carr MD [Primary Care Provider] -
--- NOTE | 2023-01-11 05:23 | RAD_ITS ---
EXAM: XR CHEST, 1 VIEW CLINICAL INDICATION: chest pain TECHNIQUE: 2 frontal views of the chest. COMPARISON: Previous chest radiographs of 05/27/2022 and 01/11/2022. FINDINGS: LUNGS AND PLEURAL SPACES: Unremarkable. No consolidation or edema. No pneumothorax. No effusion. HEART: Unremarkable. Cardiac silhouette not enlarged. Normal pulmonary vasculature. MEDIASTINUM: Central airways and mediastinal contour are unremarkable. No mediastinal widening. BONES/JOINTS: Thoracic degenerative spurring and degenerative osteoarthritis of both shoulders again noted. No acute osseous abnormality. SOFT TISSUES: Unremarkable. RAD/Chest 1 View (Portable) IMPRESSION: No significant interval change. No radiographic evidence of acute cardiopulmonary disease. Electronically Signed: Sina Goncalves MD at 5:49 EDT ,
--- NOTE | 2023-01-11 05:30 | EKG12_ITS ---
Test Reason : Blood Pressure : / mmHG Vent. Rate : 075 BPM Atrial Rate : 075 BPM P-R Int : 180 ms QRS Dur : 082 ms QT Int : 378 ms P-R-T Axes : 069 046 058 degrees QTc Int : 422 ms Normal sinus rhythm Normal ECG Confirmed by HARI HOOVER, ERICA ([id number]), editorial director BULL RAMIRES ([id number]) on 01/12/2023 2:43:02 PM Referred By: Confirmed By:ERICA NORIEGA MD
[2023-01-11] MEDS: Aspirin 81 MG TAB.CHEW 324 MG PO (05:35)
[2023-01-11 05:42] LABS: Absolute Lymphocyte Count 2.69 X10^3/uL (0.83-4.51); Absolute Neutrophil Count 2.9 X10^3/uL (2.0-7.7); Basophil# 0.09 X10^3/uL; Basophil% 1.4 % (0-1); Eosinophil# 0.28 X10^3/uL; Eosinophils% 4.3 % (0-5); Hematocrit 48.7 % (40-54); Hemoglobin 16.5 g/dL (13.0-16.5); Lymphocyte # 2.69 X10^3/ul (0.83-4.51); Lymphocyte % 41.2 % (19-41); Mean Corp Hgb Conc 33.9 g/dL (32-36); Mean Corpuscular Hgb 29.7 pg (27.0-32.0); Mean Corpuscular Volume 87.7 fL (80-94); Mean Platelet Vol. 9.5 fl (6.2-12.0); Monocyte# 0.57 X10^3/uL; Monocyte% 8.7 % (0-10); NRBC Flagged by Analyzer 0 % (0-5); Neutrophil # 2.88 X10^3/uL (2.7-7.7); Neutrophil % 44.1 % (47-70); Platelet Count 331 K/mm3 (150-450); RBC Distribution Width CV 13.5 % (11.6-14.6); RBC Distribution Width SD 43.3 fl (35.1-43.9); Red Blood Count 5.55 M/mm3 (4.6-6.2); White Blood Count 6.5 K/mm3 (4.4-11.0)
[2023-01-11 06:46] LABS: Anion Gap 5 (5-15); BUN 15 mg/dL (7-18); BUN/Creat Ratio 17.1 RATIO (10-20); Calcium,Total 8.7 mg/dL (8.5-10.1); Chloride 103 mmol/L (98-107); Creatinine, Serum 0.88 mg/dL (0.70-1.30); EST Glomerular Filtration Rate 92 mL/min (>60); Est Glom Filt Rate - Afr Amer 111 mL/min (>60); Estimated Creatinine Clearance 88.18 ml/min; Glucose 106 mg/dL (74-106); Potassium 4.1 mmol/L (3.5-5.1); Sodium Level 133 mmol/L (136-145); Troponin-I HS (w/2H Reflex) 5 pg/mL (3.0-78.0)
[2023-01-11] MEDS: LORazepam 2 MG/ML Syringe 1 MG IV (06:49)
[2023-01-11 08:20] LABS: Reflex Troponin-HS? (from REC) Y
--- NOTE | 2023-01-11 08:22 | EKG12_ITS ---
Test Reason : CP ADMISSION Blood Pressure : / mmHG Vent. Rate : 076 BPM Atrial Rate : 076 BPM P-R Int : 166 ms QRS Dur : 086 ms QT Int : 378 ms P-R-T Axes : 078 064 065 degrees QTc Int : 425 ms Normal sinus rhythm Normal ECG When compared with ECG of 11-JAN-2023 05:11, MANUAL COMPARISON REQUIRED, DATA IS UNCONFIRMED Confirmed by HARI HOOVER, ERICA ([id number]), legal editor JOSEPH SHARIF ([id number]) on 01/28/2023 1:09:53 PM Referred By: Confirmed By:ERICA NORIEGA MD
[2023-01-11 08:56] LABS: Troponin-I HS 6 pg/mL (3.0-78.0)
[2023-01-11] MEDS: 0.9% Saline Lock 10 ML Syringe IV (09:10)
[2023-01-11] MEDS: Clopidogrel Bisulfate 75 MG Tablet PO (09:10)
[2023-01-11] MEDS: Lisinopril 5 MG Tablet PO (09:10)
[2023-01-11] MEDS: Carvedilol 6.25 MG Tablet PO (09:17)
--- NOTE | 2023-01-11 09:45 | CON.PCM.CA_ITS ---
Assessment & Plan Assessment/Plan (1) CAD (coronary artery disease), solomon coronary artery: PLAN: He does have a history of coronary disease and presents with chest discomfort which is suggestive of angina. Since he had a stress test within the last 8 months I would recommend that we proceed with a left heart catheterization and depending on the findings further recommendations will be made. Addendum: Cardiac catheterization demonstrated nonobstructive coronary disease in the previously placed stent in the right coronary artery which was patent with preserved ejection fraction. (2) H/O right coronary artery stent placement: PLAN: He does have a history of previous right coronary artery stenting. The plan will be to continue with the current medical therapy and also obtain a cardiac catheterization. Further recommendations will depend on the results of this test. (3) Essential (primary) hypertension: PLAN: His blood pressure appears to be under good control I would not recommend that we make any changes. HPI Consult Data Date of Consult: 01/11/23 HPI Narrative HPI Narrative: NAA LENTZ, is a 67 M who presents to the emergency room complaining of chest discomfort. He says that this was reminiscent of his previous myocardial infarction. He apparently had been doing well after presenting with a myocardial infarction a year ago involving the inferior wall and having a right coronary artery stent placed. His anatomy at that time was as follows; 99% mid right coronary artery lesion, 60% mid left anterior descending artery lesion, 60 to 65% mid circumflex lesion, and 50 to 60% mid ramus coronary artery stenosis. He underwent a drug-eluting stent using a Synergy 3.0 x 32 mm stent to the mid right coronary artery. His ejection fraction was noted to be 50%. He subsequently underwent a myocardial perfusion scan in April of this year demonstrating no evidence of ischemia and he has been on guideline directed medical therapy. He presents the emergency room no EKG changes are noted and no cardiac enzyme abnormality is present but with his chest discomfort it is rather concerning. [facility] Medical History Anxiety Essential (primary) hypertension Hypertension Nicotine dependence Prostate enlargement Home Medications alprazolam 0.5 mg tablet 0.5 mg PO QHS PRN PRN Anxiety 08/22/15 [History Last Taken 12/16/21 12:00] aspirin 81 mg tablet,delayed release 81 mg PO DAILYCM #30 tabs 01/13/22 [Rx Last Taken Unknown] carvedilol 6.25 mg tablet 6.25 mg PO BID #60 tabs 02/04/22 [Rx Last Taken Unknown] clopidogrel 75 mg tablet 75 mg PO DAILY #90 tabs 03/09/22 [Rx Last Taken Unknown] rosuvastatin 10 mg tablet 10 mg PO DAILY stop Atorvastatin #90 tabs 03/09/22 [Rx Last Taken Unknown] mirtazapine 15 mg tablet 15 mg PO DAILY 04/28/22 [History Last Taken Unknown] linaclotide 72 mcg capsule (Linzess) 72 mcg PO DAILY PRN Check with primary doctor 10/21/22 [History Last Taken Unknown] hydrochlorothiazide 25 mg tablet 12.5 mg (1/2 x 25 mg) PO DAILY #90 tabs 12/31/22 [Rx Last Taken Unknown] lisinopril 5 mg tablet 5 mg PO BID #90 tabs 12/31/22 [Rx Last Taken Unknown] Allergy/AdvReac Type Severity Reaction Status Date / Time cortisone Allergy Nausea Verified 01/11/23 05:11 atorvastatin AdvReac Intermediate Myalgias Verified 12/25/22 11:35 oxycodone AdvReac Intermediate Upset Verified 12/25/22 11:35 Stomach buspirone HCl [From BuSpar] AdvReac Other Verified 01/11/23 05:11 hydrocodone bitartrate AdvReac Other Verified 12/25/22 11:35 [From [place]] Family History Other Cancer Heart disease Hypertension Myocardial infarction Surgical History H/O right coronary artery stent placement (~01/11/22) Hx of spinal fusion (~07/2022) Previous back surgery ST elevation myocardial infarction (STEMI) of inferior wall (~01/11/22) Social History Smoking Status: Never smoker alcohol intake: current alcohol intake frequency: a few times a month substance use type: marijuana and other details: Denies cocaine caffeine: Yes Type: coffee Number of servings: 1 ROS Constitutional Constitutional: Denies fever(s) or weight loss Eyes Eyes: Reports systems reviewed and no addt'l complaints, except as documented ENT HEENT: Reports systems reviewed and no addt'l complaints, except as documented Cardiovascular Cardiovascular: Denies chest pain at rest, chest pain with activity, dyspnea at rest, dyspnea on exertion, edema, palpitations or paroxysmal nocturnal dyspnea Respiratory/Chest Respiratory/Chest: Denies dyspnea on exertion, productive cough, shortness of breath at rest or shortness of breath with exertion Gastrointestinal Gastrointestinal: Denies change in bowel habits, nausea, vomiting or weight changes Genitourinary Genitourinary: Denies difficulty urinating Musculoskeletal Musculoskeletal: Denies joint stiffness or muscle weakness Integumentary Integumentary: Denies lesions Neurologic Neurologic: Denies dizziness or syncope Psychiatric Psychiatric: Denies anxiety Endocrine Endocrinology: Denies excessive sweating or fatigue Hematologic/Lymphatic Hematologic/Lymphatic: Denies anemia Allergic/Immunologic Allergic/Immunologic: Denies seasonal rhinorrhea Risk Stratification Risk Stratification Applicable: Yes Age >/= 65: Yes >/= 3 CAD Risk Factors (HTN, HLD, DM, family hx of CAD, or current smoker): Yes Aspirin Use in the Past 7 Days: Yes Severe Angina (>/= episodes in 24 hours): No EKG ST Changes >/= 0.5mm: No Positive Cardiac Marker: No KEVIN Risk Stratification Score: 3 KEVIN % Risk: 13% Risk Objective Data Vital Signs: Vital Signs Temp Pulse Resp BP Pulse Ox O2 Del Method 98.6 F 71 16 132/78 H 100 Room Air 01/11/23 08:20 01/11/23 08:20 01/11/23 08:20 01/11/23 08:20 01/11/23 08:20 01/11/23 08:46 Oxygen Delivery Method Room Air Weight: 195 lb 4.8 oz Body Mass Index (BMI) 26.4 Lab / Micro Data 01/11/23 05:15 01/11/23 05:15 Labs: Laboratory Results - last 24 hr 01/11/23 05:15: WBC 6.5, RBC 5.55, Hgb 16.5, Hct 48.7, MCV 87.7, MCH 29.7, MCHC 33.9, RDW Std Deviation 43.3, RDW Coeff of Kelsy 13.5, Plt Count 331, MPV 9.5, Immature Gran % (Auto) 0.300, Neut % (Auto) 44.1 L, Lymph % (Auto) 41.2 H, [place] % (Auto) 8.7, Eos % (Auto) 4.3, Baso % (Auto) 1.4 H, Absolute Neuts (auto) 2.9, Absolute Lymphs (auto) 2.69, Nucleated RBC % 0, Sodium Cancelled 01/11/23 05:15: Sodium 133 L, Potassium Cancelled 01/11/23 05:15: Potassium 4.1, Chloride Cancelled 01/11/23 05:15: Chloride 103, Carbon Dioxide Cancelled 01/11/23 05:15: Carbon Dioxide 25.0, Anion Gap Cancelled 01/11/23 05:15: Anion Gap 5, BUN Cancelled 01/11/23 05:15: BUN 15, Creatinine Cancelled 01/11/23 05:15: Creatinine 0.88, Estim Creat Clear Calc Cancelled 01/11/23 05:15: Estim Creat Clear Calc 88.18, Est GFR (MDRD) Af Amer Cancelled 01/11/23 05:15: Est GFR (MDRD) Af Amer 111, Est GFR (MDRD) Non-Af Cancelled 01/11/23 05:15: Est GFR (MDRD) Non-Af 92, BUN/Creatinine Ratio Cancelled 01/11/23 05:15: BUN/Creatinine Ratio 17.1, Glucose Cancelled 01/11/23 05:15: Glucose 106, Calcium Cancelled 01/11/23 05:15: Calcium 8.7, Troponin I High Sens Cancelled 01/11/23 05:15: Troponin I High Sens 5, B-Natriuretic Peptide 17.0 01/11/23 08:31: Troponin I High Sens 6 Cardiology Labs/Tests 01/11/23 05:15: WBC 6.5, RBC 5.55, Hgb 16.5, Hct 48.7, MCV 87.7, MCH 29.7, MCHC 33.9, Plt Count 331, MPV 9.5, Immature Gran % (Auto) 0.300, Neut % (Auto) 44.1 L , Lymph % (Auto) 41.2 H, [place] % (Auto) 8.7, Eos % (Auto) 4.3, Baso % (Auto) 1.4 H, Absolute Neuts (auto) 2.9, Nucleated RBC % 0, Sodium Cancelled 01/11/23 05:15: Sodium 133 L, Potassium Cancelled 01/11/23 05:15: Potassium 4.1, Chloride Cancelled 01/11/23 05:15: Chloride 103, Carbon Dioxide Cancelled 01/11/23 05:15: Carbon Dioxide 25.0, Anion Gap Cancelled 01/11/23 05:15: Anion Gap 5, BUN Cancelled 01/11/23 05:15: BUN 15, Creatinine Cancelled 01/11/23 05:15: Creatinine 0.88, Est GFR (MDRD) Af Amer Cancelled 01/11/23 05:15: Est GFR (MDRD) Af Amer 111, Est GFR (MDRD) Non-Af Cancelled 01/11/23 05:15: Est GFR (MDRD) Non-Af 92, BUN/Creatinine Ratio Cancelled 01/11/23 05:15: BUN/Creatinine Ratio 17.1, Glucose Cancelled 01/11/23 05:15: Glucose 106, Calcium Cancelled 01/11/23 05:15: Calcium 8.7, B-Natriuretic Peptide 17.0 Rhythm: EKG: ECHO: Stress Test: Cardiac Cath: PCI: CT Surgery: Holter monitor: EPS: PPM: CXR: Chest CT Scan: Radiography Diagnostic Testing: Radiology Impression Chest X-Ray 01/11/23 05:23 IMPRESSION: No significant interval change. No radiographic evidence of acute cardiopulmonary disease. Electronically Signed: Sina Goncalves MD at 5:49 EDT ,
--- NOTE | 2023-01-11 09:57 | HP.PCM.HOS_ITS ---
HPI - General General Date of Admission: 01/11/23 HPI Narrative NAA LENTZ, is a 67 M who presents to the hospital with 1 hour of chest pain that woke him up from sleep. He denies any exertional chest pain however he says that the pain is in the middle of his chest and is similar to the pain that he had last January when he had stents placed in his mid RCA. Initial troponin is unremarkable and EKG was normal however his heart score was elevated. On review of his previous heart caths he had multivessel disease with stenoses and are between 50 to 65% depending on the vessel involved. He is also been having episodes of lightheadedness and he had carotid duplex that was unremarkable and he said that he also wore a Holter monitor that he turned back in on Wednesday which has not been reviewed yet. [facility] Medical History Anxiety Essential (primary) hypertension Hypertension Nicotine dependence Prostate enlargement Home Medications alprazolam 0.5 mg tablet 0.5 mg PO QHS PRN PRN Anxiety 08/22/15 [History Last Taken 12/16/21 12:00] aspirin 81 mg tablet,delayed release 81 mg PO DAILYCM #30 tabs 01/13/22 [Rx Last Taken Unknown] carvedilol 6.25 mg tablet 6.25 mg PO BID #60 tabs 02/04/22 [Rx Last Taken Unknown] clopidogrel 75 mg tablet 75 mg PO DAILY #90 tabs 03/09/22 [Rx Last Taken Unknown] rosuvastatin 10 mg tablet 10 mg PO DAILY stop Atorvastatin #90 tabs 03/09/22 [Rx Last Taken Unknown] mirtazapine 15 mg tablet 15 mg PO DAILY 04/28/22 [History Last Taken Unknown] linaclotide 72 mcg capsule (Linzess) 72 mcg PO DAILY PRN Check with primary doctor 10/21/22 [History Last Taken Unknown] hydrochlorothiazide 25 mg tablet 12.5 mg (1/2 x 25 mg) PO DAILY #90 tabs 12/31/22 [Rx Last Taken Unknown] lisinopril 5 mg tablet 5 mg PO BID #90 tabs 12/31/22 [Rx Last Taken Unknown] Allergy/AdvReac Type Severity Reaction Status Date / Time cortisone Allergy Nausea Verified 01/11/23 05:11 atorvastatin AdvReac Intermediate Myalgias Verified 12/25/22 11:35 oxycodone AdvReac Intermediate Upset Verified 12/25/22 11:35 Stomach buspirone HCl [From BuSpar] AdvReac Other Verified 01/11/23 05:11 hydrocodone bitartrate AdvReac Other Verified 12/25/22 11:35 [From [place]] Family History Other Cancer Heart disease Hypertension Myocardial infarction Surgical History H/O right coronary artery stent placement (~01/11/22) Hx of spinal fusion (~07/2022) Previous back surgery ST elevation myocardial infarction (STEMI) of inferior wall (~01/11/22) Social History Smoking Status: Never smoker alcohol intake: current alcohol intake frequency: a few times a month substance use type: marijuana and other details: Denies cocaine caffeine: Yes Type: coffee Number of servings: 1 ROS Constitutional Constitutional: Denies chills, fatigue, fever(s) or malaise Eyes Eyes: Denies blurry vision ENT HEENT: Denies headache(s) or nasal discharge Cardiovascular Cardiovascular: Reports chest pain and lightheadedness; Denies dyspnea on exertion or syncope Respiratory/Chest Respiratory/Chest: Denies cough, shortness of breath at rest or shortness of breath with exertion Gastrointestinal Gastrointestinal: Denies constipation, diarrhea, nausea or vomiting Genitourinary Genitourinary: Denies dysuria Neurologic Neurologic: Denies focal weakness, numbness or tremor(s) Psychiatric Psychiatric: Denies anxiety or depression Vital Signs Vital Signs Vital Signs: 01/11/23 05:08 01/11/23 05:15 01/11/23 05:23 Temperature 96.6 F L Temperature Source Temporal Pulse Rate 77 Respiratory Rate 18 Respiratory Effort Normal Non-Labored Respiratory Depth Respiratory Pattern Blood Pressure 157/98 H Blood Pressure Mean 117 Blood Pressure Source Blood Pressure Position Blood Pressure Location Pulse Ox 99 Oxygen Delivery Method Room Air Room Air 01/11/23 06:58 01/11/23 07:29 01/11/23 08:20 Temperature 97.2 F L 98.6 F Temperature Source Temporal Oral Pulse Rate 66 67 71 Respiratory Rate 18 14 16 Respiratory Effort Respiratory Depth Respiratory Pattern Blood Pressure 137/91 H 145/93 H 132/78 H Blood Pressure Mean 106 110 96 Blood Pressure Source Monitor Blood Pressure Position Semi-Fowlers Blood Pressure Location Right Arm Pulse Ox 92 98 100 Oxygen Delivery Method Room Air Room Air Room Air 01/11/23 08:46 Temperature Temperature Source Pulse Rate Respiratory Rate Respiratory Effort Normal Non-Labored Respiratory Depth Normal Respiratory Pattern Normal Blood Pressure Blood Pressure Mean Blood Pressure Source Blood Pressure Position Blood Pressure Location Pulse Ox Oxygen Delivery Method Room Air Weight Weight: 195 lb 4.8 oz Body Mass Index (BMI) 26.4 Physical Exam Narrative General: Alert, Oriented x3, Cooperative, No apparent distress HEENT: Atraumatic, PERRLA, EOMI, Normocephalic Oral: Moist Mucosa Neck: Supple, No JVD Lungs: Clear to auscultation, Normal air movement, No rhonchi, No wheeze, No rales Cardiovascular: Regular rate, Regular Rhythm, Normal S1, Normal S2, No murmurs Abdomen: Soft, Non Tender, Non-Distended, No Hepato-splenomegaly Extremities: No edema, Capillary Refill Less than 3 Seconds Skin: No rashes, No breakdown Musculoskeletal: No Tenderness to Palpation of Joints or Extremities Neurological: Cranial nerves II-XII grossly intact, Motor Exam 5/5 strength throughout, Sensory exam intact to light touch and pain Psych/Mental Status: Normal Affect, Appropriate Results Lab / Micro Data 01/11/23 05:15 01/11/23 05:15 Labs: Laboratory Results - last 24 hr 01/11/23 05:15: WBC 6.5, RBC 5.55, Hgb 16.5, Hct 48.7, MCV 87.7, MCH 29.7, MCHC 33.9, RDW Std Deviation 43.3, RDW Coeff of Kelsy 13.5, Plt Count 331, MPV 9.5, Immature Gran % (Auto) 0.300, Neut % (Auto) 44.1 L, Lymph % (Auto) 41.2 H, [place] % (Auto) 8.7, Eos % (Auto) 4.3, Baso % (Auto) 1.4 H, Absolute Neuts (auto) 2.9, Absolute Lymphs (auto) 2.69, Nucleated RBC % 0, Sodium Cancelled 01/11/23 05:15: Sodium 133 L, Potassium Cancelled 01/11/23 05:15: Potassium 4.1, Chloride Cancelled 01/11/23 05:15: Chloride 103, Carbon Dioxide Cancelled 01/11/23 05:15: Carbon Dioxide 25.0, Anion Gap Cancelled 01/11/23 05:15: Anion Gap 5, BUN Cancelled 01/11/23 05:15: BUN 15, Creatinine Cancelled 01/11/23 05:15: Creatinine 0.88, Estim Creat Clear Calc Cancelled 01/11/23 05:15: Estim Creat Clear Calc 88.18, Est GFR (MDRD) Af Amer Cancelled 01/11/23 05:15: Est GFR (MDRD) Af Amer 111, Est GFR (MDRD) Non-Af Cancelled 01/11/23 05:15: Est GFR (MDRD) Non-Af 92, BUN/Creatinine Ratio Cancelled 01/11/23 05:15: BUN/Creatinine Ratio 17.1, Glucose Cancelled 01/11/23 05:15: Glucose 106, Calcium Cancelled 01/11/23 05:15: Calcium 8.7, Troponin I High Sens Cancelled 01/11/23 05:15: Troponin I High Sens 5, B-Natriuretic Peptide 17.0 01/11/23 08:31: Troponin I High Sens 6 Radiology Impression Chest X-Ray 01/11/23 05:23 IMPRESSION: No significant interval change. No radiographic evidence of acute cardiopulmonary disease. Electronically Signed: Sina Goncalves MD at 5:49 EDT , Assessment & Plan Assessment/Plan (1) Chest pain: PLAN: Plan 1. Chest pain/CAD with stent/HTN/HLD ? We will obtain serial troponins ? Given his heart score as well as his previous history with a stent about a year ago and multivessel disease, will consult cardiology to determine whether we do a heart cath or stress test ? On his previous heart cath he had 99% mid RCA lesion with a 60% mid LAD and a 60 to 65% mid left circumflex and a 50 to 60% mid ramus with a ALEX stent to the mid RCA EF at that time was 50% ? We will resume his aspirin and Plavix as well as his home blood pressure medications, will monitor and make adjustments as necessary ? We will make him n.p.o. pending cardiology evaluation 2. Anxiety ? He does take Xanax at home as necessary and he did get Ativan in the ER which did help DVT: Ambulation 75 minutes was spent on direct patient care, including documentation as well as chart review and collaboration with colleagues Charges/Coding Visit Charges Inpatient E&M: 69025 Init Hosp L3
--- NOTE | 2023-01-11 10:52 | CASEMGMT ---
[facility] Transfer list: Pt has Traditional MCR A/B so can transfer to any tertiary facility. Sandra Marsh RN CM
--- NOTE | 2023-01-11 12:33 | CL.D_ITS ---
Patient Name: NAA LENTZ Study Date: 01/11/2023 Performing: Pancho Goodson MD Ht: 72 inches 182.88 cm : 1955 Wt: 195.31 lbs 88.59 kg Age: 67 Gender: male BSA: 2.11 PROCEDURE(S) PERFORMED DC01-([id number])LHC/COR/LV CLINICAL PROFILE AND INDICATIONS Indications: Worsening Angina Heart Failure: None Stress/Imaging Stress/Image Study Performed: No CAD Presentations: Unstable angina. CONCLUSIONS Previously placed stent in the right coronary artery is patent and moderate disease is noted in the left anterior descending artery mild disease in the circumflex artery. RECOMMENDATIONS Medication adjustment on follow-up in the office. DESCRIPTION OF PROCEDURE The patient arrived to the procedure lab. The risks and benefits of the procedure as well as a full description of our services here and current unavailability of surgical backup were fully explained to the patient and/or their significant other prior to the catheterization. The Timeout was completed, verifying the correct patient and procedure. The patient's procedural site was prepped and draped in the usual fashion. Local anesthetic was given subcutaneously to right radial region with Lidocaine 2%. Using a modified Seldinger technique, arterial access was obtained via the right radial artery, a 6Fr sheath was inserted. Right Coronary Artery selective angiography was then performed in multiple views using a 5 Fr. 4.0 Cunningham catheter. Left Coronary Artery selective angiography was performed in multiple views using a 5 Fr. 4.0 Cunningham catheter. Left Ventriculography was performed in [place] projection using a 5 Fr. Pigtail catheter. LV to AO pullback pressures were then recorded.The arterial sheath was pulled and a TR Band was applied for hemostasis CORONARY ANGIOGRAPHY DOMINANCE: Right Dominant LEFT HEART ASSESSMENT Left Ventricular Ejection Fraction: by LV Gram 60 % Normal LV wall motion Normal Left Ventricular systolic function LEFT MAIN: Angiographically normal LEFT ANTERIOR DESCENDING ARTERY: This vessel was a medium size vessel with mid segment 40 to 50% hazy stenosis mild distal diffuse disease CIRCUMFLEX ARTERY: Mild luminal irregularities less than 30% RIGHT CORONARY ARTERY: Previously placed stent is noted to be patent and a first proximal stenosis sinoatrial branch with an 80% stenosis. COMPLICATIONS No Complications PROCEDURE MEDICATIONS Versed 1 mg IV Fentanyl 50 mcg IV Versed 1 mg IV Oxygen: 2 L/min via nasal cannula Plavix 75 mg PO 01/11/2023 11:23:24 SUMMARY OF HEMODYNAMIC DATA Time AIR REST ECG 11:21:03 AO 135/87 (109) SA 12:14:23 LV 132/10, 21 12:21:18 LV 100/12, 16 12:21:27 LV 110/9, 23 12:21:53 LV 108/8, 14 12:22:02 LVp 104/7, 13 12:22:05 AOp 102/63 (81) 12:22:13 12:32:48 Signed By Pancho Goodson MD On 01/11/2023 12:32:54 Signed By Pancho Goodson MD On 01/11/2023 12:32:25 Pancho Goodson MD
--- NOTE | 2023-01-11 13:42 | CASEMGMT ---
RN CM: This RN CM met with pt at bedside to discuss any potential dc needs. Pt states he lives alone and is independent with all ADLs. Pt denies any family but states he does have friends he can contact when needed. Pt denies any discharge needs at this time. Sandra Marsh RN CM
--- NOTE | 2023-01-11 14:03 | CASEMGMT ---
Social Work Patient has living will and power of estate planning attorney. Patient has identified friend, Elif Guzman as his POA. Documents are scanned into medical record. Sabrina Quiroz MSW, LIFT MANAGER
--- NOTE | 2023-01-11 14:06 | CASEMGMT ---
Social Work Patient has living will and power of slash trimmer. Patient has identified friend, Elif Guzman as his POA. Documents are scanned into medical record. Sabrina Quiroz MSW, FOOD CHECKER
--- NOTE | 2023-01-11 14:19 | DCINST_ITS ---
Discharge Instructions Diet Discharge Diet: Low fat / Low cholesterol Activity Discharge Activity: Return to Normal Activity Dressing / Incision Call your doctor if you observe: Fever of 101 or Higher, Shortness of breath, Dizziness, Fainting spells, Swelling in the ankles, Chest pain and Increased palpitations (irregular heartbeat) Follow Up Care Test Results: Test results from this visit will be discussed in further detail at your follow- up appointment, if applicable. Discharge Plan Admission Admit Date/Time: 01/11/23 07:26 Attending Provider: James Scott Primary Care Provider: Hortensia Carr Consulting Providers: Pancho Goodson Instructions Additional Instructions / Restrictions: Cardiology has recommended to increase your Coreg from 6.25 to 12.5 mg p.o. twice daily as well as her Crestor from 10 mg to 20 mg. Discharge Orders/Prescriptions Prescriptions: New carvedilol 12.5 mg Tablet 12.5 mg PO BIDCM 30 Days Qty: 60 0RF rosuvastatin [Crestor] 20 mg Tablet 20 mg PO QHS 30 Days Qty: 30 0RF Continued mirtazapine 15 mg tablet 15 mg PO DAILY alprazolam 0.5 MG tablet 0.5 mg PO QHS PRN PRN (Reason: Anxiety) aspirin 81 mg Tablet,Delayed Release (Dr/Ec) 81 mg PO DAILYCM Qty: 30 1RF Linzess 72 mcg capsule 72 mcg PO DAILY PRN (Reason: Check with primary doctor) clopidogrel 75 mg tablet 75 mg PO DAILY Qty: 90 3RF lisinopril 5 mg tablet 5 mg PO BID Qty: 90 3RF Discontinued carvedilol 6.25 mg tablet 6.25 mg PO BID Qty: 60 11RF Rx Instructions: must administer with a meal/food rosuvastatin 10 mg tablet 10 mg PO DAILY Qty: 90 3RF hydrochlorothiazide 25 mg tablet 12.5 mg PO DAILY Qty: 90 3RF Referrals / Follow Up: Hortensia Carr MD [Primary Care Provider] - Within 1 Week Pancho Goodson MD [Med Staff - Active Staff] - Within 3 Months Disposition Disposition (needs filled in before D/C Order can be placed): Home, Self Care
--- NOTE | 2023-01-11 14:38 | PHA.DC_ITS ---
Pharmacy [facility] has performed discharge medication reconciliation and counseling for this patient. The patient's discharge medication list was reviewed for discrepancies and discrepancies were resolved. The patient was counseled on the following discharge medications and changes in medications for homegoing were reviewed. The Reason for Use, instructions for use, and potential side effects were reviewed for all new medications. The patient's questions regarding all of their medications were answered. 1. Carvedilol 12.5 mg PO BID 2. Rosuvastatin 20 mg PO daily The patient was able to verbally demonstrate an understanding of their discharge medications. Medications at Discharge Home Medications alprazolam 0.5 mg tablet 0.5 mg PO QHS PRN PRN Anxiety 08/22/15 aspirin 81 mg tablet,delayed release 81 mg PO DAILYCM #30 tabs 01/13/22 clopidogrel 75 mg tablet 75 mg PO DAILY #90 tabs 03/09/22 mirtazapine 15 mg tablet 15 mg PO DAILY 04/28/22 linaclotide 72 mcg capsule (Linzess) 72 mcg PO DAILY PRN Check with primary doctor 10/21/22 lisinopril 5 mg tablet 5 mg PO BID #90 tabs 12/31/22 carvedilol 12.5 mg tablet 12.5 mg PO BIDCM 30 days #60 tabs 01/11/23 rosuvastatin 20 mg tablet (Crestor) 20 mg PO QHS 30 days #30 tabs 01/11/23
== END 2023-01-11 12:26 | disposition home or self-care (01) ==
LOC: ED 07:31 → PCU 07:45
PROVIDERS: Admitting Provider Family Medicine; Emergency Provider Emergency Medicine; PCP Family Medicine; Visit Provider Family Medicine
DX: I25.110 Atherosclerotic heart disease of native coronary artery with unstable angina pectoris (principal); R11.0 Nausea; E87.1 Hypo-osmolality and hyponatremia; E78.5 Hyperlipidemia, unspecified; Z95.5 Presence of coronary angioplasty implant and graft; Z79.82 Long term (current) use of aspirin; I10 Essential (primary) hypertension; F41.9 Anxiety disorder, unspecified; Z79.899 Other long term (current) drug therapy; Z79.02 Long term (current) use of antithrombotics/antiplatelets
CPT/HCPCS: 71045; 80048; 83880; 84484; 85025; 93005; 93458; 96372; 99152; 99153; 99221; 99285; Q9967; A4216; C1769; C1894; G0378

== ENCOUNTER → 2023-01-12 | Outpatient (CLI) | payer MEDICARE, OTHER, SELFPAY ==
[2022-05-20 11:52] VITALS: BMI 26.9
[2023-01-12 10:42] LABS: Anion Gap 5 (5-15); BUN 14 mg/dL (7-18); BUN/Creat Ratio 14.7 RATIO (10-20); Calcium,Total 9.2 mg/dL (8.5-10.1); Chloride 101 mmol/L (98-107); Creatinine, Serum 0.95 mg/dL (0.70-1.30); EST Glomerular Filtration Rate 84 mL/min (>60); Est Glom Filt Rate - Afr Amer 101 mL/min (>60); Glucose 89 mg/dL (74-106); PSA,Total- Diagnostic 3.73 ng/mL (0.0-4.0); Potassium 4.6 mmol/L (3.5-5.1); Sodium Level 132 mmol/L (136-145)
== END | disposition home or self-care (01) ==
LOC: MFPLAB 08:36
PROVIDERS: PCP Family Medicine; Visit Provider Family Medicine
DX: E87.1 Hypo-osmolality and hyponatremia (principal); R97.20 Elevated prostate specific antigen [PSA]
CPT/HCPCS: 36415; 80048; 84153

== ENCOUNTER → 2023-05-25 | Outpatient (CLI) | payer MEDICARE, OTHER, SELFPAY ==
[2022-05-20 11:52] VITALS: BMI 26.9
[2023-05-25 12:40] LABS: AST(SGOT) 26 U/L (15-37); Alanine Aminotransfer ALT/SGPT 38 U/L (16-61); Anion Gap 5 (5-15); BUN 18 mg/dL (7-18); Calcium,Total 9.4 mg/dL (8.5-10.1); Chloride 106 mmol/L (98-107); Cholesterol 111 mg/dL (200); EST Glomerular Filtration Rate 79 mL/min (>60); Est Glom Filt Rate - Afr Amer 96 mL/min (>60); Glucose 95 mg/dL (74-106); High Density Lipoprotein 46 mg/dL; Potassium 4.6 mmol/L (3.5-5.1); Sodium Level 138 mmol/L (136-145); Thyroid Stim Hormone (TSH) 0.96 uIU/mL (0.358-3.74); Triglycerides 72 mg/dL; Very Low Density Lipoprotein 14 mg/dL (5-40)
== END | disposition home or self-care (01) ==
LOC: MFPLAB 09:53
PROVIDERS: PCP Family Medicine; Visit Provider Family Medicine
DX: I10 Essential (primary) hypertension (principal); E78.00 Pure hypercholesterolemia, unspecified
CPT/HCPCS: 36415; 80048; 80061; 84443; 84450; 84460

== ENCOUNTER → 2023-09-02 | Outpatient (CLI) | payer MEDICARE, OTHER, SELFPAY ==
[2022-05-20 11:52] VITALS: BMI 26.9
[2023-09-02 08:40] LABS: Absolute Lymphocyte Count 3.71 X10^3/uL (0.83-4.51); Absolute Neutrophil Count 4.3 X10^3/uL (2.0-7.7); Basophil# 0.09 X10^3/uL; Eosinophil# 0.37 X10^3/uL; Hematocrit 45.9 % (40-54); Lymphocyte # 3.71 X10^3/ul (0.83-4.51); Lymphocyte % 39.7 % (19-41); Mean Corp Hgb Conc 32.7 g/dL (32-36); Mean Corpuscular Hgb 30.4 pg (27.0-32.0); Mean Corpuscular Volume 93.1 fL (80-94); Mean Platelet Vol. 9.6 fl (6.2-12.0); Monocyte# 0.79 X10^3/uL; Monocyte% 8.5 % (0-10); NRBC Flagged by Analyzer 0 % (0-5); Neutrophil % 45.9 % (47-70); Platelet Count 330 K/mm3 (150-450); RBC Distribution Width SD 44.4 fl (35.1-43.9); Red Blood Count 4.93 M/mm3 (4.6-6.2); White Blood Count 9.3 K/mm3 (4.4-11.0)
[2023-09-02 09:03] LABS: Anion Gap 6 (5-15); BUN 21 mg/dL (7-18); BUN/Creat Ratio 19.3 RATIO (10-20); Calcium,Total 8.9 mg/dL (8.5-10.1); Chloride 103 mmol/L (98-107); Creatinine, Serum 1.09 mg/dL (0.70-1.30); EST Glomerular Filtration Rate 71 mL/min (>60); Est Glom Filt Rate - Afr Amer 86 mL/min (>60); Glucose 68 mg/dL (74-106); Potassium 4.2 mmol/L (3.5-5.1); Sodium Level 135 mmol/L (136-145)
== END | disposition home or self-care (01) ==
LOC: LAB 07:55
PROVIDERS: PCP Family Medicine; Referring Provider Nurse Practitioner Gerontology; Visit Provider Nurse Practitioner Gerontology
DX: R42 Dizziness and giddiness (principal)
CPT/HCPCS: 36415; 80048; 85025

== ENCOUNTER → 2023-11-23 | Outpatient (CLI) | payer MEDICARE, OTHER, SELFPAY ==
[2022-05-20 11:52] VITALS: BMI 26.9
[2023-11-23 12:48] LABS: PSA,Total - Annual Screen 4.03 ng/mL (0.00-4.00)
== END | disposition home or self-care (01) ==
LOC: MFPLAB 09:58
PROVIDERS: PCP Family Medicine; Visit Provider Family Medicine
DX: Z12.5 Encounter for screening for malignant neoplasm of prostate (principal)
CPT/HCPCS: 36415; 84153; G0103

== ENCOUNTER → 2023-11-25 | Outpatient (CLI) | payer MEDICARE, OTHER, SELFPAY ==
[2022-05-20 11:52] VITALS: BMI 26.9
== END | disposition home or self-care (01) ==
PROVIDERS: PCP Family Medicine; Referring Provider Family Medicine; Visit Provider Family Medicine
DX: Z00.00 Encounter for general adult medical examination without abnormal findings (principal)

== ENCOUNTER → 2024-02-09 | Outpatient (CLI) | payer MEDICARE, OTHER, SELFPAY ==
[2022-05-20 11:52] VITALS: BMI 26.9
--- NOTE | 2024-02-09 09:30 | US_ITS ---
EXAM: US SCROTUM CLINICAL INDICATION: testicular enlargement TECHNIQUE: Realtime ultrasound of the testicles was performed with grayscale and Color Doppler analysis. COMPARISON: No relevant prior studies available. FINDINGS: RIGHT TESTICLE: Unremarkable. Normal in size and echotexture. No focal lesion. Normal blood flow is present. The right testicle measures 4.4 x 2.7 x 2.2 cm. LEFT TESTICLE: Unremarkable. Normal in size and echotexture. No focal lesion. Normal blood flow is present. The left testicle measures 3.3 x 2.6 x 1.4 cm. EPIDIDYMIDES: Unremarkable. Normal in size and echotexture, without focal lesion. Normal color Doppler flow pattern in the epididymis. SCROTUM: Unremarkable. No hydrocele. No varicocele. US/Testicular with Arterial Flow IMPRESSION: Unremarkable bilateral testicular ultrasound with normal sized testicles. No significant focal abnormalities identified. Electronically Signed: Duarte Escalera MD at 3:00 EDT ,
== END | disposition home or self-care (01) ==
LOC: US 09:29
PROVIDERS: PCP Family Medicine; Referring Provider Family Medicine; Visit Provider Family Medicine
DX: N50.89 Other specified disorders of the male genital organs (principal)
CPT/HCPCS: 76870; 93976

== ENCOUNTER → 2024-05-25 | Outpatient (CLI) | payer MEDICARE, OTHER, SELFPAY ==
[2022-05-20 11:52] VITALS: BMI 26.9
[2024-05-25 08:47] LABS: PSA,Total- Diagnostic 4.89 ng/mL (0.0-4.0)
[2024-05-25 08:57] LABS: AST(SGOT) 32 U/L (15-37); Alanine Aminotransfer ALT/SGPT 37 U/L (16-61); Albumin, Serum 3.8 g/dL (3.2-5.0); Alkaline Phosphatase 68 U/L (45-117); Anion Gap 6 (5-15); BUN 18 mg/dL (7-18); BUN/Creat Ratio 18.2 RATIO (10-20); CPK Total, Creatine Kinase 170 U/L (39-308); Calcium,Total 9.2 mg/dL (8.5-10.1); Chloride 105 mmol/L (98-107); Cholesterol 149 mg/dL (200); Creatinine, Serum 0.99 mg/dL (0.70-1.30); EST Glomerular Filtration Rate 80 mL/min (>60); Est Glom Filt Rate - Afr Amer 96 mL/min (>60); Globulin 3.7 g/dL (2.2-4.2); Glucose 102 mg/dL (74-106); High Density Lipoprotein 42 mg/dL; Potassium 4.7 mmol/L (3.5-5.1); Protein, Total 7.5 g/dL (6.4-8.2); Sodium Level 137 mmol/L (136-145); Triglycerides 180 mg/dL; Very Low Density Lipoprotein 36 mg/dL (5-40)
== END | disposition home or self-care (01) ==
LOC: LAB 07:20
PROVIDERS: PCP Family Medicine; Referring Provider Nurse Practitioner; Visit Provider Internal Medicine Cardiovascular Disease
DX: R97.20 Elevated prostate specific antigen [PSA] (principal); I10 Essential (primary) hypertension; R42 Dizziness and giddiness; R00.2 Palpitations; E78.5 Hyperlipidemia, unspecified
CPT/HCPCS: 36415; 80053; 80061; 82550; 84153

== ENCOUNTER → 2024-06-09 | Outpatient (CLI) | payer MEDICARE, OTHER, SELFPAY ==
[2022-05-20 11:52] VITALS: BMI 26.9
[2024-06-09 12:13] LABS: Protein, Urine (Random) 6.8 mg/dL (0.0-12.0); Protein:Creat Ratio 176 mg/g CRE (0-200)
== END | disposition home or self-care (01) ==
LOC: MFPLAB 08:34
PROVIDERS: PCP Family Medicine; Referring Provider Family Medicine; Visit Provider Family Medicine
DX: I10 Essential (primary) hypertension (principal)
CPT/HCPCS: 82570; 84156

== ENCOUNTER → 2024-06-13 | Outpatient (CLI) | payer MEDICARE, OTHER, SELFPAY ==
[2022-05-20 11:52] VITALS: BMI 26.9
--- NOTE | 2024-06-13 06:46 | ECHOCS_ITS ---
Reason For Study Reason For Study: CAD/ASHD Procedure This was a 2D Doppler, Color Flow transthoracic echocardiogram. Contrast injection was performed. The study was technically difficult. Exam performed in department. Left Ventricle Normal size and thickness. The left ventricular ejection fraction is 65 %. No evidence for diastolic dysfunction. Right Ventricle Normal right ventricle. Atria The left and right atria are normal. Mitral Valve Normal mitral valve. Tricuspid Valve Normal tricuspid valve. Aortic Valve Aortic sclerosis, no stenosis. Trivial aortic valve insufficiency. Pulmonic Valve The pulmonic valve is not well visualized. Great Vessels Normal sized aortic root. Pericardium/Pleural No pericardial effusion. Medication Diluted definity 1.5ml given slow IV push to enhance endocardial definition. MMode/2D Measurements & Calculations LVIDd: 3.9 cm IVSd: 0.79 cm Ao root diam: 2.9 cm LVIDs: 2.8 cm LVPWd: 0.72 cm RVDd: 2.6 cm FS: 28.5 % LAV(MOD-bp): 29.8 ml LVAd ap4: 23.3 cm2 SV(MOD-sp4): 34.6 ml LAV(MOD-bp) Indexed: 13.9 ml/m2 LVLd ap4: 7.2 cm SI(MOD-sp4): 16.2 ml/m2 LAV(MOD-sp2): 35.3 ml EDV(MOD-sp4): 61.1 ml LAV(MOD-sp4): 22.2 ml EDV(sp4-el): 64.3 ml LVAs ap4: 14.0 cm2 LVLs ap4: 6.4 cm ESV(MOD-sp4): 26.5 ml ESV(sp4-el): 25.9 ml EF(MOD-sp4): 56.6 % EF(sp4-el): 59.6 % SV(sp4-el): 38.3 ml LA A4 area: 11.2 cm2 LA dimension(2D): 3.0 cm RA A4 area: 10.2 cm2 TAPSE: 2.3 cm Time Measurements MV dec time: 0.29 sec Doppler Measurements & Calculations MV E max ambrose: 53.0 cm/sec Lat Peak E' Ambrose: 11.8 cm/sec Med Peak E' Ambrose: 8.7 cm/sec MV A max ambrose: 54.4 cm/sec E/E' lat: 4.5 E/E' med: 6.1 MV E/A: 0.98 MV dec slope: 183.9 cm/sec2 Ao V2 max: 115.2 cm/sec LV V1 max: 78.0 cm/sec Ao max P.3 mmHg LV V1 max P.4 mmHg Ao V2 mean: 85.9 cm/sec Ao mean P.2 mmHg Ao V2 VTI: 21.6 cm PA V2 max: 71.1 cm/sec ECHO/Echo Complete W/ Contrast Interpretation Summary The left ventricular ejection fraction is 65 %. No evidence for diastolic dysfunction. Aortic sclerosis, no stenosis. The study was technically difficult. Ordering Physician: Lucrecia Cosby Referring Physician: Hortensia Carr Performed By: Mai Pizarro RDCS, RVT
--- NOTE | 2024-06-13 09:53 | STRESSREP_ITS ---
Stress Test Report Date: 06/13/2024 Procedure: Pharmacologic stress nuclear imaging study Indications: Coronary artery disease Consent: Per the patient Procedure: The patient underwent pharmacologic (Regadenoson 0.4mg ) evaluation with a peak heart rate of 89 beats per minute (58%predicted maximal heart rate) and a peak blood pressure of 168/98 mmHg. The baseline ECG demonstrated sinus rhythm. The peak pharmacologic ECG demonstrated no ischemic changes. There were no cardiac dysrhythmias pretest, during pharmacologic infusion, or recovery. There was no complaint of chest discomfort during pharmacologic infusion or recovery. The patient was injected with 13.9 millicuries of technetium 99m Cardiolite and subsequently rest SPECT Cardiolite nuclear imaging was obtained in the horizontal long, vertical long, and short axis views. The patient underwent pharmacologic (Regadenoson) evaluation. The patient was injected with 43.6 millicuries of technetium 99m Cardiolite and subsequently stress SPECT Cardiolite nuclear imaging was obtained in the horizontal long, vertical long, and short axis views. A gated Cardiolite study at peak stress was obtained. The examination was stopped secondary to completion of protocol. Rest and stress SPECT Cardiolite nuclear imaging status post realignment, normalization, and attenuation correction demonstrate a fixed inferior wall defect of mild intensity that may suggest previous nontransmural infarct. There is end systolic thickening and brightening. The gated Cardiolite study demonstrates myocardial thickening and inward wall motion. The reported LVEF is 73%. Impression: 1. Pharmacologic (Regadenoson) evaluation 2. Peak pharmacologic ECG with no ischemic changes. 3. There were no cardiac dysrhythmias pretest, during pharmacologic infusion, or recovery. 5. Mild intensity fixed inferior wall defect that may suggest previous nontransmural infarct. No reversible ischemia. The inferior wall does contract normally on gated images so also consider attenuation artifact. 6. The gated Cardiolite study reports an LVEF of 73%. This note was generated with Halldisation software. It may contain incorrect words, spelling, and punctuation that were not noted in checking the note before signing.
== END | disposition home or self-care (01) ==
LOC: CVS 06:45
PROVIDERS: PCP Family Medicine; Referring Provider Internal Medicine Cardiovascular Disease; Visit Provider Internal Medicine Cardiovascular Disease
DX: I25.10 Atherosclerotic heart disease of native coronary artery without angina pectoris (principal); R00.2 Palpitations; R42 Dizziness and giddiness
CPT/HCPCS: 78452; 93017; 93306; A9500; Q9957; A4216; C8929; J2785

== ENCOUNTER → 2024-10-17 | Outpatient (CLI) | payer MEDICARE, OTHER, SELFPAY ==
[2022-05-20 11:52] VITALS: BMI 26.9
[2024-10-17 09:54] LABS: Hematocrit 48.5 % (40-54); Hemoglobin 16.2 g/dL (13.0-16.5); Immature Granulocytes Count 0.030 X10^3/uL (0.0-0.0); Mean Corp Hgb Conc 33.4 g/dL (32-36); Mean Corpuscular Volume 93.6 fL (80-94); Mean Platelet Vol. 10.6 fl (6.2-12.0); NRBC Flagged by Analyzer 0 % (0-5); Platelet Count 273 K/mm3 (150-450); RBC Distribution Width CV 12.7 % (11.6-14.6); RBC Distribution Width SD 44.0 fl (35.1-43.9); Red Blood Count 5.18 M/mm3 (4.6-6.2); White Blood Count 7.2 K/mm3 (4.4-11.0)
[2024-10-17 10:51] LABS: Creatinine, Urine (random) 31.60 mg/dL (39.00-259.00)
[2024-10-17 10:53] LABS: AST(SGOT) 31 U/L (<=37); Alanine Aminotransfer ALT/SGPT 27 U/L (<=46); Albumin, Serum 4.6 g/dL (3.4-4.8); Alkaline Phosphatase 66 U/L (40-129); Anion Gap 10 (5-15); BUN 14 mg/dL (4-19); BUN/Creat Ratio 14.1 RATIO (10-20); Calcium,Total 9.5 mg/dL (7.6-11.0); Carbon Dioxide 26.0 mmol/L (21.0-32.0); Chloride 100 mmol/L (98-108); Globulin 2.9 g/dL (2.2-4.2); Glucose 75 mg/dL (70-99); Potassium 4.4 mmol/L (3.3-5.1)
[2024-10-17 10:59] LABS: Microalbumin,Random Urine < 12.0 mg/L (NO RANGE EST.)
[2024-10-17 12:10] LABS: Osmolality, Serum 292 mOsm/KG (280-301); Osmolality, Urine 203 mOsm/KG
== END | disposition home or self-care (01) ==
LOC: MFPLAB 08:16
PROVIDERS: PCP Family Medicine; Referring Provider Family Medicine; Visit Provider Family Medicine
DX: I25.10 Atherosclerotic heart disease of native coronary artery without angina pectoris (principal); F41.9 Anxiety disorder, unspecified; E87.1 Hypo-osmolality and hyponatremia
CPT/HCPCS: 36415; 80053; 82043; 82570; 83930; 83935; 84300; 84443; 85025

== ENCOUNTER → 2024-11-28 | Outpatient (CLI) | payer MEDICARE, OTHER, SELFPAY ==
[2022-05-20 11:52] VITALS: BMI 26.9
--- NOTE | 2024-11-28 09:55 | CDU_ITS ---
Reason For Study Reason For Study: RT CAROTID BRUIT Rt. Velocities/BP Lt. Velocities/BP Prox CCA 71.7/9.4 cm/sec. Prox CCA 79.9/15.7 cm/sec. Mid CCA 63.2/10.3 cm/sec. Mid CCA 78.0/16.6 cm/sec. Dist CCA 46.2/9.4 cm/sec. Dist CCA 58.2/15.7 cm/sec. Prox ICA 48.1/11.2 cm/sec. Prox ICA 53.1/10.4 cm/sec. Mid ICA 51.9/16.0 cm/sec. Mid ICA 47.9/20.0 cm/sec. Dist ICA 38.6/13.1 cm/sec. Dist ICA 56.6/21.7 cm/sec. Rt. ICA/CCA = 51.9/63.2=0.8. Lt. ICA/CCA = 56.6/78.0=0.7. Prox ECA 90.4/8.1 cm/sec. Prox ECA 63.9/9.1 cm/sec. Rt. Vert. 32.7/7.8 cm/sec. Lt. Vert. 48.8/15.6 cm/sec. Right Extracranial There is intimal thickening but no significant atherosclerotic plaque noted in the right common carotid artery. There is heterogeneous, smooth atherosclerotic plaque noted in the right internal carotid artery. There is intimal thickening but no significant atherosclerotic plaque noted in the right external carotid artery. Left Extracranial There is intimal thickening but no significant atherosclerotic plaque noted in the left common carotid artery. There is heterogeneous, irregular atherosclerotic plaque noted in the left internal carotid artery. There is homogeneous, smooth atherosclerotic plaque noted in the left external carotid artery. Antegrade flow is noted in the left vertebral artery. Procedure Carotid Duplex 69023. This is a Carotid Duplex examination using B-mode, color flow and specral Doppler. Exam performed in department. VL/Carotid Duplex Ultrasound Interpretation Summary Mild (<50%) stenosis right extracranial internal carotid. Mild (<50%) stenosis left extracranial internal carotid. Flow within the vertebral arteries is antegrade bilaterally. Ordering Physician: Leyda Sepulveda Referring Physician: Jake Suazo Performed By: Candida Martinez RDCS, RVT
== END | disposition home or self-care (01) ==
LOC: CVS 09:47
PROVIDERS: PCP Family Medicine; Referring Provider Physician Assistant Medical; Visit Provider Physician Assistant Medical
DX: R09.89 Other specified symptoms and signs involving the circulatory and respiratory systems (principal)
CPT/HCPCS: 93880

== ENCOUNTER → 2025-01-17 | Outpatient (CLI) | payer MEDICARE, OTHER, SELFPAY ==
[2022-05-20 11:52] VITALS: BMI 26.9
[2025-01-17 18:19] LABS: Hematocrit 48.4 % (40-54); Hemoglobin 16.1 g/dL (13.0-16.5); Immature Granulocytes Count 0.010 X10^3/uL (0.0-0.0); Mean Corp Hgb Conc 33.3 g/dL (32-36); Mean Corpuscular Volume 92.4 fL (80-94); Mean Platelet Vol. 10.0 fl (6.2-12.0); NRBC Flagged by Analyzer 0 % (0-5); Platelet Count 294 K/mm3 (150-450); RBC Distribution Width CV 12.9 % (11.6-14.6); RBC Distribution Width SD 43.8 fl (35.1-43.9); Red Blood Count 5.24 M/mm3 (4.6-6.2); White Blood Count 6.5 K/mm3 (4.4-11.0)
[2025-01-17 18:53] LABS: PSA,Total - Annual Screen 5.79 ng/mL (0.02-4.00)
== END | disposition home or self-care (01) ==
LOC: MFPLAB 14:30
PROVIDERS: PCP Family Medicine; Visit Provider Family Medicine
DX: R89.9 Unspecified abnormal finding in specimens from other organs, systems and tissues (principal); Z12.5 Encounter for screening for malignant neoplasm of prostate
CPT/HCPCS: 36415; 84153; 85025; G0103